=== PATIENT | male | born 1950 | race American Indian/Alaskan Native ===

== ENCOUNTER 2018-06-28 16:08 | Inpatient (IN) | payer MEDICARE ==
[2018-06-28] MEDS ORDERED: NACL 0.9% 1000 ML 1,000 ML IV ONE ×2 (17:14→20:25)
--- NOTE | 2018-06-28 17:19 | Emergency Department Report ---
ED General Adult HPI - General Chief complaint: Recheck/Abnormal Lab/Rx Stated complaint: ACUTE KIDNEY INFECTION Time Seen by Provider: 06/28/18 17:05 Source: patient, EMS Mode of arrival: Stretcher Limitations: Physical Limitation - History of Present Illness Initial comments: Mrs. Rosenberg is 67 years old male with history of hypertension, myasthenia gr ania, paraplegic, end-stage renal disease, decubitus ulcer, left femoral osteomyelitis. Patient was admitted to [facility] due to multiple issues including UTI/cath related, large back wound, left hip pyogenic arthritis, gram- positive bacteremia. Patient was treated with vancomycin and Zosyn and discharged to [facility] for rehabilitation. Patient brought to our emergency room today after the staff received a call from [facility] stating that patient culture came back with resistant to vancomycin and they send the patient for further management and evaluation. Patient currently denying any fever, chills, nausea or vomiting. Severity scale (0 -10): 0 - Related Data Allergies Allergy/AdvReac Type Severity Reaction Status Date / Time codeine Allergy Unknown Verified 06/28/18 17:04 ED Review of Systems ROS: Stated complaint: ACUTE KIDNEY INFECTION Other details as noted in HPI Comment: All other systems reviewed and negative Constitutional: denies: chills, fever Respiratory: denies: cough, orthopnea, shortness of breath, SOB with exertion, SOB at rest, wheezing Gastrointestinal: denies: abdominal pain, nausea, vomiting, diarrhea, constipation, hematemesis, melena, hematochezia Neurological: denies: headache ED Past Medical Hx - Past Medical History Previous Medical History?: Yes Additional medical history: metabolic encephalopathy, pyogenic arthritis, osteomylitis, akf, mrsa, bacteremia, htn, myastgebua gravis - Social History Smoking Status: Never Smoker Substance Use Type: None ED Physical Exam - General Limitations: Physical Limitation General appearance: alert, in no apparent distress - Head Head exam: Present: atraumatic, normocephalic, normal inspection - Eye Eye exam: Present: normal appearance - ENT ENT exam: Present: normal exam, normal orophraynx, mucous membranes moist - Neck Neck exam: Present: normal inspection, full ROM. Absent: tenderness, meningismus, lymphadenopathy, thyromegaly - Respiratory Respiratory exam: Present: normal lung sounds bilaterally - Cardiovascular Cardiovascular Exam: Present: regular rate, normal rhythm, normal heart sounds - GI/Abdominal GI/Abdominal exam: Present: soft, normal bowel sounds. Absent: distended, tenderness, guarding, rebound, rigid, mass, bruit, pulsatile mass - Extremities Exam Extremities exam: Present: normal inspection, full ROM, normal capillary refill - Neurological Exam Neurological exam: Present: alert, oriented X3 - Skin Skin exam: Present: other (left buttocks decubitus ulcer.) ED Course Vital Signs 06/28/18 06/28/18 06/28/18 16:45 16:49 17:00 Temperature 98.4 F Pulse Rate 77 77 73 Respiratory 19 16 19 Rate Blood Pressure 148/84 Blood Pressure 126/74 [Left] O2 Sat by Pulse 98 98 Oximetry 06/28/18 06/28/18 06/28/18 17:15 17:31 17:45 Temperature Pulse Rate 77 74 72 Respiratory 13 16 16 Rate Blood Pressure 126/74 126/74 148/84 Blood Pressure [Left] O2 Sat by Pulse 99 100 Oximetry 06/28/18 06/28/18 06/28/18 18:00 18:15 18:30 Temperature Pulse Rate 73 69 75 Respiratory 23 14 17 Rate Blood Pressure 137/80 137/80 137/80 Blood Pressure [Left] O2 Sat by Pulse 91 Oximetry 06/28/18 06/28/18 06/28/18 18:46 18:53 18:54 Temperature 92 F L Pulse Rate 72 68 Respiratory 16 14 14 Rate Blood Pressure 137/80 Blood Pressure 137/80 [Left] O2 Sat by Pulse 100 100 100 Oximetry 06/28/18 06/28/18 06/28/18 19:00 19:16 19:30 Temperature Pulse Rate 69 68 70 Respiratory 17 17 17 Rate Blood Pressure 137/80 137/80 137/80 Blood Pressure [Left] O2 Sat by Pulse 99 100 100 Oximetry - Consultations Consultation #1: 06/28/18 19:41 I discussed the patient is Dr. Gregory, from infectious disease, Dr. Gregory advised to start patient on Linezolid and will follow up with the patient in the hospital in the morning. 06/28/18 19:41 Consultation #2: 06/28/18 20:39 I discussed the patient is Dr. Garcia, he informed about the patient and he stated that he will follow-up. ED Medical Decision Making - Lab Data Result diagrams: 06/28/18 18:25 06/28/18 18:25 - Medical Decision Making Mrs. Rosenberg is 67 years old male with history of hypertension, myasthenia gravis, paraplegic, end-stage renal disease, decubitus ulcer, left femoral osteomyelitis. Patient was admitted to [facility] due to multiple issues including UTI/cath related, large back wound, left hip pyogenic arthritis, gram- positive bacteremia. Patient was treated with vancomycin and Zosyn and discharged to [facility] for rehabilitation. Patient brought to our emergency room today after the staff received a call from [facility] sta ting that patient culture came back with resistant to vancomycin and they send the patient for further management and evaluation. Patient currently denying any fever, chills, nausea or vomiting. I discussed the patient was Dr. Gregory from infectious disease who advised to start patient on Linezolid and to continue Zosyn. Patient also found to have acute renal failure. Patient present creatinine is 13.3 his previous creatinine on June 06 was 1.8 I discussed the patient is Dr. Harrison, he agreed to admit the patient to medical service advised to do the initial admitting orders. Critical Care Time: Yes Critical care time in (mins) excluding proc time.: 45 Critical care attestation.: If time is entered above; I have spent that time in minutes in the direct care of this critically ill patient, excluding procedure time. ED Disposition Clinical Impression: Sepsis, Vancomycin resistant Enterococcal septicemia, Acute renal failure, Decubitus ulcer, Osteomyelitis of left femur Disposition: OP ADMIT IP TO THIS HOSP Is pt being admited?: Yes Condition: Stable Referrals: TIFFANIE JIMENEZ MD [Primary Care Provider] - 3-5 Days
[2018-06-28 18:42] LABS: Hematocrit 26.6 % (35.5-45.6); Hemoglobin 9.1 gm/dl (11.8-15.2); Mean Corpuscular HGB Conc 34 % (32-34); Mean Corpuscular Volume 88 fl (84-94); Platelet Count 320 K/mm3 (140-440); Red Blood Count 3.01 M/mm3 (3.65-5.03)
[2018-06-28 18:43] LABS: Red Cell Distribution Width 20.5 % (13.2-15.2)
[2018-06-28 19:00] LABS: Albumin 1.9 g/dL (3.9-5)
[2018-06-28 19:20] LABS: Basophils % (Manual) 0 % (0.0-1.8); Myelocytes # (Manual) 0.3 K/mm3; Total Cells Counted 100
[2018-06-28 19:21] LABS: Anisocytosis 2+
[2018-06-28] MEDS: ZYVOX 600MG/300ML 600 MG/300 ML BAG IV SCH (20:16)
[2018-06-28] MEDS ORDERED: ZOSYN/NS 2.25 GM/50ML 2.25 GM/50 ML BAG IV ONE (20:40)
--- NOTE | 2018-06-28 21:08 | XRay Report ---
FINAL REPORT EXAM: XR CHEST 1V AP HISTORY: sepsis TECHNIQUE: Frontal portable view of the chest Comparison: None FINDINGS: A right-sided PICC line is demonstrated with the tip projected in the region of the superior vena cav a. There prominence of the interstitial markings in both lungs with the appearance of patchy areas of pu lmonary consolidation in both lungs. Atelectasis versus infiltrates versus combination of both. There is no evidence of pneumothorax and no definite evidence of pleural effusion. The cardiac silhouette is normal size. The thoracic aorta is tortuous. The bony structures are notable for retained hardware in the visualized portion of the cervical spine . Visualization detail of the thoracic spine is limited. There appears to be multiple level bridging osteophyte formation. IMPRESSION: 1. Patchy areas of pulmonary consolidation in both lungs. Atelectasis versus infiltrates versus combi nation of both. If further imaging is required, CT chest may be helpful. 2. Right-sided PICC line catheter. 3. Retained hardware cervical spine.
[2018-06-29] MEDS ORDERED: ZOFRAN IV PRN (00:02)
--- NOTE | 2018-06-29 00:17 | Ultrasound Report ---
FINAL REPORT EXAM: US RENAL BILAT HISTORY: Acute renal failure COMPARISON: None available. TECHNIQUE: Several real-time grayscale and color Doppler images were obtained. FINDINGS: Right kidney measures 9.8 x 4.9 x 4.4 centimeters. Cortex 1.7 centimeters. Left kidney measures 11.7 x 5.5 x 5.0 centimeters. Cortex 1.5 centimeters. No gross focal renal lesion or hydronephrosis. There is vascular flow to the bilateral kidneys. IMPRESSION: No gross focal renal lesion or hydronephrosis.
[2018-06-29] MEDS: SODIUM BICARBONATE IV SCH ×2 (00:30→16:03)
[2018-06-29] MEDS: STERILE WATER IV SCH ×2 (00:30→16:03)
--- NOTE | 2018-06-29 04:15 | History and Physical Report ---
CHIEF COMPLAINT: Abnormal lab results. HISTORY OF PRESENT ILLNESS: The patient is a 67-year-old male sent from [facility] for rehabilitation because of lab results from the previous hospital he went to said that the patient has vancomycin-resistant urinary tract infection and the patient was sent to the Emergency Room for further evaluation. The patient was initially treated at [facility] for urinary tract infection, which is catheter related and also large back wound, left hip pyogenic arthritis and Gram-positive bacteremia. After discharge, he was sent to [facility] for rehabilitation and while there, the staff member received a call saying that the patient has urine culture that shows resistance to vancomycin and said that the patient should come in for evaluation. There was no history of fever or chills. No history of nausea or vomiting, shortness of breath, cough or chest pain. PAST MEDICAL HISTORY: Pertinent for metabolic encephalopathy, pyogenic arthritis, osteomyelitis, MRSA infection with bacteremia, hypertension, myasthenia gravis. PAST SURGICAL HISTORY: Unremarkable. FAMILY HISTORY: Noncontributory. SOCIAL HISTORY: The patient does not smoke, does not drink alcohol and does not use illicit drugs and currently in the rehab center. MEDICATIONS: The patient's home medications are not known at this time. ALLERGIES: THE PATIENT IS ALLERGIC TO CODEINE. REVIEW OF SYSTEMS: CONSTITUTIONAL: There is no fever, no chills, no diaphoresis. HEENT: There is no headache or sore throat. CARDIOVASCULAR: There is no chest pain or orthopnea. RESPIRATORY SYSTEM: There is no shortness of breath or cough. GASTROINTESTINAL SYSTEM: There is no nausea, no vomiting, no abdominal pain, diarrhea or constipation. NEUROLOGICAL SYSTEM: There is no numbness, no dizziness, no altered mental status. MUSCULOSKELETAL SYSTEM: There is no joint pain or swelling. DERMATOLOGICAL SYSTEM: There is no skin rash or itching, but there is ulceration of the skin. GENITOURINARY SYSTEM: There is dysuria, but no hematuria or flank pain. Rest of the system review is normal. PHYSICAL EXAMINATION: GENERAL: At the time of exam, the patient was found to be alert, oriented to person only and not in acute distress. VITAL SIGNS: At the initial time of presentation show temperature of 98.4 degrees Fahrenheit, pulse of 77, respirations of 19, blood pressure 126/74, O2 sat of 98% on room air. HEENT: Showed pupils to be equal, round, reactive to light and accommodating. Extraocular muscles are intact. NECK: Supple with no JVD or carotid bruit. CARDIOVASCULAR: Showed normal first and second heart sounds with no gallops or murmurs. RESPIRATORY: Showed good air entry on both sides of the lungs with no abnormal breath sounds. GASTROINTESTINAL SYSTEM: Show abdomen to be full, soft, nontender with no organomegaly or rigidity. NEUROLOGICAL: Shows no focal deficit. MUSCULOSKELETAL SYSTEM: Show no joint swelling or tenderness. DERMATOLOGICAL SYSTEM: Showed left buttock decubitus ulcer. GENITOURINARY: Show no costovertebral angle tenderness. PERTINENT LABORATORY DATA AND IMAGING STUDIES: The patient had a chest x-ray done. Chest x-ray shows patchy areas of pulmonary consolidation in both lung and the radiologist said that atelectasis versus infiltrate versus combination of both should be considered and further CT of chest may be helpful. The patient had renal ultrasound done that shows no gross focal renal lesion or hydronephrosis. Lab results: The patient has CBC done with elevated white count of 31,200 with low hemoglobin of 9.1 and low hematocrit of 26.6. The patient's chemistry show a high sodium level of 155 with low potassium of 3.2, high chloride level of 120 with low CO2 of 6, elevated BUN of 67 and elevated creatinine of 13.3 and alkaline phosphatase is high with a value of 200 and albumin level is low with a value of 1.9. DIAGNOSES: 1. Sepsis. 2. Urinary tract infection. 3. Acute renal failure. 4. Bilateral pneumonia. PLAN OF CARE: 1. The patient will be admitted to telemetry. 2. The patient will continue Infectious Disease consult with Dr. Calderon because of vancomycin-resistant UTI. 3. The patient will continue Nephrology consult with Dr. Garcia because of acute renal failure. 4. The patient will continue general surgical consult with Dr. Luly Nieves because of left decubitus ulcer. 5. The patient's DVT prophylaxis will be through sequential compressive device. 6. The patient will have basic metabolic panel checked this morning. 7. The patient will continue linezolid or Zyvox 600 mg IV q. 12 hours as requested by the Infectious Disease doctor. 8. The patient will be on IV Zofran 4 mg every 8 hours for nausea and vomiting and will also continue IV Zosyn 3.375 grams q. 8 hours. 9. The patient's diet will be 2 g sodium diet. JOB# [id number] OCN/NTS
[2018-06-29] MEDS ORDERED: ZOSYN/NS 3.375GM/50ML 3.375 GM/50 ML BAG IV SCH (06:00)
[2018-06-29 06:27] LABS: Hematocrit 23.4 % (35.5-45.6); Hemoglobin 8.1 gm/dl (11.8-15.2); Mean Corpuscular HGB Conc 35 % (32-34); Mean Corpuscular Volume 88 fl (84-94); Platelet Count 262 K/mm3 (140-440); Red Blood Count 2.66 M/mm3 (3.65-5.03)
[2018-06-29 06:30] LABS: Red Cell Distribution Width 20.7 % (13.2-15.2)
[2018-06-29 06:45] LABS: Calcium 9.4 mg/dL (8.4-10.2)
--- NOTE | 2018-06-29 07:08 | Consultation ---
History of Present Illness - Reason for Consult Consult date: 06/29/18 acute renal failure, chronic renal failure, hypernatremia, hypokalemia - History of Present Illness The patient is a 67 Yo male with history significant for Myasthenia gravis, DM type 2, Paraplegia 2/2 spinal injury and multiple decubitus ulcers who presented from [facility] for further evaluation of abnormal labs. Patient was not able to provide any history and information was obtained from his at the bedside. He recently had a prolonged stay at [facility], treated for MRSA bacteremia, loculated intramuscular abscess in the gluteal muscles, left hip septic arthritis s/p I&D, trochanteric osteomyelitis, multiple decubitus ulcers including a stage IV sacral ulcer and VRE UTI in the setting of a suprapubic catheter. He was discharged from the hospital on IV Zosyn and vancomycin. Labs done on arrival showed creatinine of 13.3., Sodium 155, bicarb 6 and WBC 31. He was admitted with LASHAE, multiple infected wounds and sepsis. Nephrology was consulted for further evaluation and treatment. Past History Past Medical History: diabetes, renal failure Medications and Allergies Allergies Allergy/AdvReac Type Severity Reaction Status Date / Time codeine Allergy Unknown Verified 06/28/18 17:04 Home Medications Medication Instructions Recorded Confirmed Last Taken Type Unobtainable 06/28/18 06/28/18 Unknown History Active Meds: Active Medications Heparin Sodium (Porcine) (Heparin) 5,000 unit SUB-Q Q12HR BEL Linezolid (Zyvox 600mg/300ml) 600 mg in 300 mls @ 300 mls/hr IV Q12H BEL; Protocol Last Admin: 06/28/18 20:16 Dose: 300 mls/hr Documented by: Sodium Bicarbonate 75 meq/ (Sterile Water) 1,075 mls @ 125 mls/hr IV DIRECT BEL Last Admin: 06/29/18 00:30 Dose: 125 mls/hr Documented by: Piperacillin Sod/Tazobactam Sod (Zosyn/Ns 3.375gm/50ml) 3.375 gm in 50 mls @ 100 mls/hr IV Q8HR BEL; Protocol Ondansetron HCl (Zofran) 4 mg IV Q8H PRN PRN Reason: Nausea And Vomiting Review of Systems ROS unobtainable: due to mental status Exam - Vital Signs Vital signs: Vital Signs Pulse Resp 77 19 06/28/18 16:45 06/28/18 16:45 - General Appearance General appearance: well-developed, appears stated age, frail, other (emaciated) EENT: ATNC, PERRL, mucous membranes dry, hearing intact Neck: Present: neck supple, trachea midline Respiratory: Clear to Ascultation Heart: regular, S1S2, no murmurs Gastrointestinal: Present: normoactive bowel sounds, other (Suprapubic catheter noted). Absent: tenderness, distended Integumentary: other (bilateral foot dressing) Neurologic: confused, disoriented, other (paraplegia, follows some command) Musculoskeletal: Present: other (no edema) Results - Lab Results 06/29/18 05:39 06/29/18 14:30 Most recent lab results Calcium 9.4 mg/dL (8.4-10.2) 06/29/18 05:39 - Image Kidney/bladder ultrasound: report reviewed Assessment and Plan 1. Acute kidney injury: Multifactorial LASHAE in the setting of volume depletion, sepsis and =/-Vancomycin. Likely ATN. Urine studies and Renal US results noted. Continue IV fluids. Monitor renal function. If there is no improvement in the renal function in 1-2 days patient would require hemodialysis. D/w his about the possibility of dialysis. Renal prognosis is guarded. Avoid nephrotoxic agents. Meds dosage based on GFR. 2. FEN: Volume depletion, continue IV fluids. Anion gap metabolic acidosis, likely secondary to LASHAE. Continue IV bicarbonate. Hypernatremia, hypotonic IV fluids. Hyperkalemia, replete K. 3. Sepsis. 4. Multiple decubitus ulcers. 5. Paraplegia. 6. Myasthenia gravis.
[2018-06-29 07:39] LABS: Basophils % (Manual) 0 % (0.0-1.8); Myelocytes # (Manual) 0.2 K/mm3; Total Cells Counted 100
[2018-06-29 07:41] LABS: Anisocytosis 1+; Ovalocytes Few; Poikilocytosis 1+
[2018-06-29 07:42] LABS: Burr Cells 1+; Platelet Estimate Consistent w Auto
[2018-06-29] MEDS: ZYVOX 600MG/300ML 600 MG/300 ML BAG IV SCH (08:02)
[2018-06-29] MEDS ORDERED: POTASSIUM CHLORIDE PO ONE ×2 (09:00→18:00)
[2018-06-29] MEDS ORDERED: K-DUR PO ONE (10:00)
[2018-06-29] MEDS: HEPARIN SUB-Q SCH ×2 (10:03→21:21)
--- NOTE | 2018-06-29 13:09 | Consultation ---
History of Present Illness Consult date: 06/29/18 Chief complaint: sacral wound - History of present illness History of present illness: 67yo M with hx of hypertension, paraplegia, multiple decubitus ulcers including large sacral wound, left hip infection presents to ER from rehab due to "positive cultures" which are resistant to vancomycin. Per family at bedside these were urine cultures. The patient was recently admitted to [facility] for multipleissues including UTI, wounds, and left hip abscess. He has a chronic suprapubic catheter. He underwent debridement of wounds and drainage of hip abscess per family member. Family member states that the patient has lost a lot of weight since she saw him 2 weeks ago. The patient c/o pain when eating and burning sensation in his mouth. He cannot elaborate further. He denies f/c, cp. He was having some SOB this am which is improved with supplemental O2. He is tolerating some of his diet without n/v. Past History Past Medical History: hypertension, other (myasthenia gravis, CKD, paraplegia, multiple decubitus wounds, left hip pyogenic arthritis) Past Surgical History: Other (sacral wound debridement, drainage of left hip abscess, suprapubic catheter) [facility] history: [facility] Family history: no significant family history Medications and Allergies Allergies Allergy/AdvReac Type Severity Reaction Status Date / Time codeine Allergy Unknown Verified 06/28/18 17:04 Home Medications Medication Instructions Recorded Confirmed Last Taken Type Unobtainable 06/28/18 06/28/18 Unknown History Active Meds: Active Medications Heparin Sodium (Porcine) (Heparin) 5,000 unit SUB-Q Q12HR BEL Last Admin: 06/29/18 10:03 Dose: 5,000 unit Documented by: Linezolid (Zyvox 600mg/300ml) 600 mg in 300 mls @ 300 mls/hr IV Q12H BEL; Protocol Last Admin: 06/29/18 08:02 Dose: 300 mls/hr Documented by: Sodium Bicarbonate 75 meq/ (Sterile Water) 1,075 mls @ 125 mls/hr IV DIRECT BEL Last Admin: 06/29/18 00:30 Dose: 125 mls/hr Documented by: Piperacillin Sod/Tazobactam Sod (Zosyn/Ns 2.25 Gm/50ml) 2.25 gm in 50 mls @ 100 mls/hr IV Q8HR [facility] Ondansetron HCl (Zofran) 4 mg IV Q8H PRN PRN Reason: Nausea And Vomiting Review of Systems All systems: negative (10 pt ROS performed and negative except for that listed in HPI) Exam Vital Signs Pulse Resp 77 19 06/28/18 16:45 06/28/18 16:45 Narrative exam: Gen: Awake and alert, oriented to person. NAD ENT: no scleral icterus or conjuntival pallor. Temporal wasting CV: s1, s2+ resp: even and unlabored Abd: soft, NT, ND Ext: thin loan documentation specialist photos reviewed: 1. large stage 3 sacral wound without evidence of necrosis or drainage. 2. Results - Labs 06/29/18 05:39 06/29/18 05:39 Abnormal lab results 06/28/18 06/28/18 06/29/18 Range/Units 18:25 18:25 05:39 WBC 31.2 H 21.4 H (4.5-11.0) K/mm3 RBC 3.01 L 2.66 L (3.65-5.03) M/mm3 Hgb 9.1 L 8.1 L (11.8-15.2) gm/dl Hct 26.6 L 23.4 L (35.5-45.6) % MCHC 35 H (32-34) % RDW 20.5 H 20.7 H (13.2-15.2) % Seg Neuts % (Manual) 72.0 H 79.0 H (40.0-70.0) % Lymphocytes % (Manual) 8.0 L (13.4-35.0) % Eosinophils % (Manual) 5.0 H (0.0-4.3) % Nucleated RBC % 2.0 H 2.0 H (0.0-0.9) % Seg Neutrophils # Man 22.5 H 16.9 H (1.8-7.7) K/mm3 Lymphocytes # (Manual) 7.2 H (1.2-5.4) K/mm3 Monocytes # (Manual) 0.9 H 1.5 H (0.0-0.8) K/mm3 Eosinophils # (Manual) 1.1 H (0.0-0.4) K/mm3 Sodium 155 H (137-145) mmol/L Potassium 3.2 L (3.6-5.0) mmol/L Chloride 120.3 H (98-107) mmol/L Carbon Dioxide 6 L* (22-30) mmol/L BUN 67 H (9-20) mg/dL Creatinine 13.3 H (0.8-1.5) mg/dL Glucose (75-100) mg/dL Alkaline Phosphatase 200 H (35-129) units/L Total Creatine Kinase (55-170) units/L Total Protein 6.1 L (6.3-8.2) g/dL Albumin 1.9 L (3.9-5) g/dL 06/29/18 Range/Units 05:39 WBC (4.5-11.0) K/mm3 RBC (3.65-5.03) M/mm3 Hgb (11.8-15.2) gm/dl Hct (35.5-45.6) % MCHC (32-34) % RDW (13.2-15.2) % Seg Neuts % (Manual) (40.0-70.0) % Lymphocytes % (Manual) (13.4-35.0) % Eosinophils % (Manual) (0.0-4.3) % Nucleated RBC % (0.0-0.9) % Seg Neutrophils # Man (1.8-7.7) K/mm3 Lymphocytes # (Manual) (1.2-5.4) K/mm3 Monocytes # (Manual) (0.0-0.8) K/mm3 Eosinophils # (Manual) (0.0-0.4) K/mm3 Sodium 153 H (137-145) mmol/L Potassium 2.7 L* (3.6-5.0) mmol/L Chloride 115.9 H (98-107) mmol/L Carbon Dioxide 7 L* (22-30) mmol/L BUN 64 H (9-20) mg/dL Creatinine 12.0 H (0.8-1.5) mg/dL Glucose 67 L (75-100) mg/dL Alkaline Phosphatase (35-129) units/L Total Creatine Kinase 47 L (55-170) units/L Total Protein (6.3-8.2) g/dL Albumin (3.9-5) g/dL Diabetes panel 06/28/18 06/29/18 Range/Units 18:25 05:39 Sodium 155 H 153 H (137-145) mmol/L Potassium 3.2 L 2.7 L* (3.6-5.0) mmol/L Chloride 120.3 H 115.9 H (98-107) mmol/L Carbon Dioxide 6 L* 7 L* (22-30) mmol/L BUN 67 H 64 H (9-20) mg/dL Creatinine 13.3 H 12.0 H (0.8-1.5) mg/dL Glucose 97 67 L (75-100) mg/dL Calcium 10.0 9.4 (8.4-10.2) mg/dL AST 28 (5-40) units/L ALT 10 (7-56) units/L Alkaline Phosphatase 200 H (35-129) units/L Total Protein 6.1 L (6.3-8.2) g/dL Albumin 1.9 L (3.9-5) g/dL Thyroid panel 06/29/18 Range/Units 00:45 TSH 0.937 (0.270-4.200) mlU/mL Calcium panel 06/28/18 06/29/18 Range/Units 18:25 05:39 Calcium 10.0 9.4 (8.4-10.2) mg/dL Albumin 1.9 L (3.9-5) g/dL Pituitary panel 06/28/18 06/29/18 06/29/18 Range/Units 18:25 00:45 05:39 Sodium 155 H 153 H (137-145) mmol/L Potassium 3.2 L 2.7 L* (3.6-5.0) mmol/L Chloride 120.3 H 115.9 H (98-107) mmol/L Carbon Dioxide 6 L* 7 L* (22-30) mmol/L BUN 67 H 64 H (9-20) mg/dL Creatinine 13.3 H 12.0 H (0.8-1.5) mg/dL Glucose 97 67 L (75-100) mg/dL Calcium 10.0 9.4 (8.4-10.2) mg/dL TSH 0.937 (0.270-4.200) mlU/mL Adrenal panel 06/28/18 06/29/18 Range/Units 18:25 05:39 Sodium 155 H 153 H (137-145) mmol/L Potassium 3.2 L 2.7 L* (3.6-5.0) mmol/L Chloride 120.3 H 115.9 H (98-107) mmol/L Carbon Dioxide 6 L* 7 L* (22-30) mmol/L BUN 67 H 64 H (9-20) mg/dL Creatinine 13.3 H 12.0 H (0.8-1.5) mg/dL Glucose 97 67 L (75-100) mg/dL Calcium 10.0 9.4 (8.4-10.2) mg/dL Total Bilirubin 0.40 (0.1-1.2) mg/dL AST 28 (5-40) units/L ALT 10 (7-56) units/L Alkaline Phosphatase 200 H (35-129) units/L Total Protein 6.1 L (6.3-8.2) g/dL Albumin 1.9 L (3.9-5) g/dL Assessment and Plan 67 yo M with 1. multiple decubitus ulcers - do not appear infected 2. vancomycin resistant UTI 3. paraplegia 4. CKD 5. malnutrition - albumin 1.9 Plan; 1. offloading of bony prominences - turn patient q2 2. nutrition consult. If patient is unable to eat and cannot support nutrition, may be a candidate for PEG eval. 3. speech therapy eval for pain with swallowing 4. wounds do not appear infected. will ask surfacing technician to place wound vac on back wound. continue daily wound care per RN 5. IV abx per ID 6. nephro on board 7. will await records from [facility] Thank you, please call with questions
[2018-06-29] MEDS ORDERED: ZOSYN/NS 2.25 GM/50ML 2.25 GM/50 ML BAG IV SCH (14:00)
--- NOTE | 2018-06-29 14:16 | Progress Note ---
History Interval history: Sent in for Vancomycin Resistant organism Altered mental status, confused as per Hospitalist Physical - Physical exam Narrative exam: GEN: Not in acute distress, lying in bed,malnourished HEENT: Normocephalic, atraumatic, Neck: supple, No JVD Lungs: Clear to auscultation bilaterally, no wheeze Heart:S1 and S2 regular, no murmurs, rubs or gallop, Abd:soft, non tender, non distended, normal bowel sounds Ext: bilateral lower ext ulcers, no clubbing or cyanosis Neuro: Awake,alert, mild confused. Oriented to person, time, not to place. sacrum:sacral ulcer - Constitutional Vitals: Temp Pulse Resp BP Pulse Ox 97.2 F L 66 16 115/71 100 06/28/18 21:56 06/29/18 08:07 06/29/18 04:42 06/29/18 08:14 06/29/18 04:42 Results - Labs CBC & Chem 7: 06/30/18 06:07 06/30/18 05:54 Labs: Laboratory Last Values WBC 21.4 K/mm3 (4.5-11.0) H 06/29/18 05:39 RBC 2.66 M/mm3 (3.65-5.03) L 06/29/18 05:39 Hgb 8.1 gm/dl (11.8-15.2) L 06/29/18 05:39 Hct 23.4 % (35.5-45.6) L 06/29/18 05:39 MCV 88 fl (84-94) 06/29/18 05:39 MCH 30 pg (28-32) 06/29/18 05:39 MCHC 35 % (32-34) H 06/29/18 05:39 RDW 20.7 % (13.2-15.2) H 06/29/18 05:39 Plt Count 262 K/mm3 (140-440) 06/29/18 05:39 Add Manual Diff Complete 06/29/18 05:39 Total Counted 100 06/29/18 05:39 Seg Neuts % (Manual) 79.0 % (40.0-70.0) H 06/29/18 05:39 Band Neutrophils % 0 % 06/29/18 05:39 Lymphocytes % (Manual) 8.0 % (13.4-35.0) L 06/29/18 05:39 Reactive Lymphs % (Man) 0 % 06/29/18 05:39 Monocytes % (Manual) 7.0 % (0.0-7.3) 06/29/18 05:39 Eosinophils % (Manual) 5.0 % (0.0-4.3) H 06/29/18 05:39 Basophils % (Manual) 0 % (0.0-1.8) 06/29/18 05:39 Metamyelocytes % 0 % 06/29/18 05:39 Myelocytes % 1.0 % 06/29/18 05:39 Promyelocytes % 0 % 06/29/18 05:39 Blast Cells % 0 % 06/29/18 05:39 Nucleated RBC % 2.0 % (0.0-0.9) H 06/29/18 05:39 Seg Neutrophils # Man 16.9 K/mm3 (1.8-7.7) H 06/29/18 05:39 Band Neutrophils # 0.0 K/mm3 06/29/18 05:39 Lymphocytes # (Manual) 1.7 K/mm3 (1.2-5.4) 06/29/18 05:39 Abs React Lymphs (Man) 0.0 K/mm3 06/29/18 05:39 Monocytes # (Manual) 1.5 K/mm3 (0.0-0.8) H 06/29/18 05:39 Eosinophils # (Manual) 1.1 K/mm3 (0.0-0.4) H 06/29/18 05:39 Basophils # (Manual) 0.0 K/mm3 (0.0-0.1) 06/29/18 05:39 Metamyelocytes # 0.0 K/mm3 06/29/18 05:39 Myelocytes # 0.2 K/mm3 06/29/18 05:39 Promyelocytes # 0.0 K/mm3 06/29/18 05:39 Blast Cells # 0.0 K/mm3 06/29/18 05:39 WBC Morphology Not Reportable 06/29/18 05:39 Hypersegmented Neuts Not Reportable 06/29/18 05:39 Hyposegmented Neuts Not Reportable 06/29/18 05:39 Hypogranular Neuts Not Reportable 06/29/18 05:39 Smudge Cells Not Reportable 06/29/18 05:39 Toxic Granulation Not Reportable 06/29/18 05:39 Toxic Vacuolation Not Reportable 06/29/18 05:39 Dohle Bodies Not Reportable 06/29/18 05:39 Pelger-Huet Anomaly Not Reportable 06/29/18 05:39 Gina Rods Not Reportable 06/29/18 05:39 Platelet Estimate Consistent w auto 06/29/18 05:39 Clumped Platelets Not Reportable 06/29/18 05:39 Plt Clumps, EDTA Not Reportable 06/29/18 05:39 Large Platelets Not Reportable 06/29/18 05:39 Giant Platelets Not Reportable 06/29/18 05:39 Platelet Satelliting Not Reportable 06/29/18 05:39 Plt Morphology Comment Not Reportable 06/29/18 05:39 RBC Morphology Not Reportable 06/29/18 05:39 Dimorphic RBCs Not Reportable 06/29/18 05:39 Polychromasia Rare 06/29/18 05:39 Hypochromasia Not Reportable 06/29/18 05:39 Poikilocytosis 1+ 06/29/18 05:39 Anisocytosis 1+ 06/29/18 05:39 Microcytosis Not Reportable 06/29/18 05:39 Macrocytosis Not Reportable 06/29/18 05:39 Spherocytes Not Reportable 06/29/18 05:39 Pappenheimer Bodies Not Reportable 06/29/18 05:39 Sickle Cells Not Reportable 06/29/18 05:39 Target Cells Not Reportable 06/29/18 05:39 Tear Drop Cells Not Reportable 06/29/18 05:39 Ovalocytes Few 06/29/18 05:39 Helmet Cells Not Reportable 06/29/18 05:39 Lange-Cayuco Bodies Not Reportable 06/29/18 05:39 [place] Rings Not Reportable 06/29/18 05:39 [place] Cells 1+ 06/29/18 05:39 Bite Cells Not Reportable 06/29/18 05:39 Crenated Cell Not Reportable 06/29/18 05:39 Elliptocytes Not Reportable 06/29/18 05:39 Acanthocytes (Spur) Not Reportable 06/29/18 05:39 Rouleaux Not Reportable 06/29/18 05:39 Hemoglobin C Crystals Not Reportable 06/29/18 05:39 Schistocytes Not Reportable 06/29/18 05:39 Malaria parasites Not Reportable 06/29/18 05:39 Nahum Bodies Not Reportable 06/29/18 05:39 Hem Pathologist Commnt No 06/29/18 05:39 Sodium 153 mmol/L (137-145) H 06/29/18 05:39 Potassium 2.7 mmol/L (3.6-5.0) L* 06/29/18 05:39 Chloride 115.9 mmol/L (98-107) H 06/29/18 05:39 Carbon Dioxide 7 mmol/L (22-30) L* 06/29/18 05:39 Anion Gap 33 mmol/L 06/29/18 05:39 BUN 64 mg/dL (9-20) H 06/29/18 05:39 Creatinine 12.0 mg/dL (0.8-1.5) H 06/29/18 05:39 Estimated GFR 5 ml/min 06/29/18 05:39 BUN/Creatinine Ratio 5 % 06/29/18 05:39 Glucose 67 mg/dL (75-100) L 06/29/18 05:39 Lactic Acid 1.60 mmol/L (0.7-2.0) 06/28/18 23:02 Calcium 9.4 mg/dL (8.4-10.2) 06/29/18 05:39 Total Bilirubin 0.40 mg/dL (0.1-1.2) 06/28/18 18:25 AST 28 units/L (5-40) 06/28/18 18:25 ALT 10 units/L (7-56) 06/28/18 18:25 Alkaline Phosphatase 200 units/L (35-129) H 06/28/18 18:25 Total Creatine Kinase 47 units/L (55-170) L 06/29/18 05:39 Total Protein 6.1 g/dL (6.3-8.2) L 06/28/18 18:25 Albumin 1.9 g/dL (3.9-5) L 06/28/18 18:25 Albumin/Globulin Ratio 0.5 % 06/28/18 18:25 TSH 0.937 mlU/mL (0.270-4.200) 06/29/18 00:45 Nutrition/Malnutrition Assess - Dietary Evaluation Nutrition/Malnutrition Findings: Nutrition Notes Start: 06/29/18 10 :59 Freq: Status: Active Protocol: Document 06/29/18 10:59 ER (Rec: 06/29/18 11:26 ER [id number]) Co-Sign 06/29/18 10:59 LP Nutrition Notes Need for Assessment generated from: Low BMI Initial or Follow up Assessment Current Diagnosis Hypertension Other Pertinent Diagnosis Metabolic enceph., arthritis, osteomyelitis, MRSA, myasthenia gravis Current Diet Low Sodium Labs/Tests Na: 153 K: 2.7 Cl: 115.9 CO2: 7 BUN: 64 Cr: 12 Albumin: 1.9 Pertinent Medications Reviewed Height 6 ft Weight 56.7 kg Usual Body Weight 77 kg [place] Body Weight (kg) 80.90 BMI 16.9 Weight change and time frame 45# in one year (26% weight- loss) Weight Status Emaciated Subjective/Other Information Pt. screened for Low BMI. Pt. stated UBW of 170# one year ago. Pt. stated that he has an "ok" appetite, but felt too tired to eat his breakfast. Pt . was unsure if he ate dinner last night. Pt. stated he was eating when he wanted to eat [employer]. Pt. has visible fat and muscle wasting in the orbital and temporal regions and forearms. Pt. chart states that he has a large back wound . Pt. agreeable to trying Ensure Enlive (no chocolate) BID and Pj BID. Pt. denied having N/V/D/C or swallowing/ chewing difficulties. Burn Absent Trauma Absent GI Symptoms None Food Allergy No Current % PO Poor (25-49%) Minimum of two criteria Yes Interpretation of Weight Loss (severe) > 20% in 1 year Body Fat Depletion Moderate depletion (severe) Muscle Mass Moderate Depletion (severe) Fluid Accumulation N/A #1 Nutrition Diagnosis Malnutrition Etiology diminished PO intake As Evidenced by Signs and Symptoms 26% weight-loss in one year, and moderate to severe fat and muscle wasting. Is patient on ventilator? No Is Patient Ambulatory and/or Out of Bed No REE-([place]-confined to bed) 1673.556 Kcal/Kg value to use for calculation 40 Approximate Energy Requirements Using 2268 kcal/Kg Calculation Used for Recommendations Kcal/kg Additional Notes PRO needs: 68-85g (1.2-1.5g/kg ) Fluid needs: 1 mL/kcal Nutrition Intervention Change Diet Order: Continue Low Sodium, Add Ensure Enlive and Pj BID Add Supplement/Snack (indicate name/kcal Ensure Enlive (strawberry or /protein ) vanilla) and Pj BID Provides kCal: 890 Provides Protein (gm) 45 Goal #1 Pt. to meet at least 80% of energy and protein needs through PO and ONS intakes. Goal #2 ONS tolerance Goal #3 Weight maintainance Anticipated Discharge Needs: Low Sodium diet Follow-Up By: 07/01/18 Additional Comments F/U: PO and ONS intake
--- NOTE | 2018-06-29 15:06 | Consultation ---
History of Present Illness - Reason for Consult Consult date: 06/29/18 Sacral decubitus ulcer, sepsis, VRE Requesting physician: TORIBIO FERNANDEZ - History of Present Illness The patient is a 67-year-old male with paraplegia, myasthenia gravis, diabetes mellitus type 2 recently had a prolonged hospitalization when he was admitted to [facility] on 05/14/2018 and was found to have MRSA bacteremia, loculated intramuscular abscess in the gluteal muscles, left hip septic arthritis with trochanteric osteomyelitis, multiple decubitus ulcers including a stage IV sacral decubitus ulcer. He had an I&D of his right hip on 06/01/2018. Probable course was also complicated by VRE UTI in the setting of a suprapubic catheter for which he received antibiotics that ended on 05/24/2018. He was eventually discharged from the hospital on IV Zosyn and vancomycin for a total duration of 6 weeks with the planned end date of 06/29/2018 through a PICC line (ID physician was Dr. Us). Patient was discharged to [facility] where he had continued wound care and IV vancomycin and Zosyn. It seems, routine labs on 06/28/2018 showed significantly elevated creatinine at 13.4 and an elevated vancomycin trough 48. He was subsequently sent here to [facility] and admitted. Here, his labs continued to show significantly elevated creatinine of 12.0 today, leukocytosis of 21,000. He has otherwise been afebrile with no hemodynamic instability. Extensive outside records reviewed. Apparently his echo to rule out infective endocarditis was negative. His creatinine in late May 2018 ranged between 1.8-2.0. Review of Systems: General: no fevers,chills or rigors HEENT: no new visual disturbance Respiratory: No cough, sputum, hemoptysis or shortness of breath Cardiovascular: No chest pain, syncope Gastrointestinal: No nausea, vomiting. Reports abdominal pain and diarrhea Genitourinary: No dysuria or hematuria Musculoskeletal: No new or worsening neck pain or back pain Neurologic: No headaches, seizures Hematologic: No easy bruising or bleeding Endocrine: No night sweats or acute weight loss Skin: negative for rash, jaundice Psychiatric: No suicidal or homicidal ideation Past History Past Medical History: hypertension, other (myasthenia gravis, CKD, paraplegia, multiple decubitus wounds, left hip pyogenic arthritis) Past Surgical History: Other (sacral wound debridement, drainage of left hip abscess, suprapubic catheter) Social history: other (currently at [employer] [facility]) Family history: no significant family history Medications and Allergies Allergies Allergy/AdvReac Type Severity Reaction Status Date / Time codeine Allergy Unknown Verified 06/28/18 17:04 Home Medications Medication Instructions Recorded Confirmed Last Taken Type Unobtainable 06/28/18 06/28/18 Unknown History Active Meds: Active Medications Heparin Sodium (Porcine) (Heparin) 5,000 unit SUB-Q Q12HR EBL Last Admin: 06/29/18 10:03 Dose: 5,000 unit Documented by: Linezolid (Zyvox 600mg/300ml) 600 mg in 300 mls @ 300 mls/hr IV Q12H BEL; Protocol Last Admin: 06/29/18 08:02 Dose: 300 mls/hr Documented by: Sodium Bicarbonate 75 meq/ (Sterile Water) 1,075 mls @ 125 mls/hr IV DIRECT BEL Last Admin: 06/29/18 00:30 Dose: 125 mls/hr Documented by: Piperacillin Sod/Tazobactam Sod (Zosyn/Ns 2.25 Gm/50ml) 2.25 gm in 50 mls @ 100 mls/hr IV Q8HR BEL Last Admin: 06/29/18 13:12 Dose: 100 mls/hr Documented by: Ondansetron HCl (Zofran) 4 mg IV Q8H PRN PRN Reason: Nausea And Vomiting Physical Examination - Physical Exam Narrative exam: Physical Exam: Constitutional: Alert, cooperative. No acute distress. Cachexia Head, Ears, Nose: Normocephalic, atraumatic. External ears, nose normal Eyes: Conjunctivae/corneas clear. No icterus. No ptosis. Neck: Supple, no meningeal signs Oral: no ulcers, no thrush Cardiovascular: S1, S2 normal. Respiratory: Good air entry, clear to auscultation bilaterally GI: mild diffuse tenderness, bowel sounds normal. No peritoneal signs. SPC +, right sided PICC + c/d/i Musculoskeletal: No pedal edema, no cyanosis. Multiple decubiti, sacral ulcer largest with clean pinkish base. Muscle wasting + Skin: No rash or abscess Hem/Lymphatic: No palpable cervical or supraclavicular nodes. No lymphangitis Psych: flat affect, no agitation Neurological: Awake, alert, oriented to place only. - Constitutional Vitals: Vital Signs Temp Pulse Resp BP Pulse Ox 97.2 F L 66 16 115/71 100 06/28/18 21:56 06/29/18 08:07 06/29/18 04:42 06/29/18 08:14 06/29/18 04:42 Temperature -Last 24 Hours Temperature 97.2 F Temperature 92 F Temperature 98.4 F Results - Labs CBC & Chem 7: 06/29/18 05:39 06/29/18 14:30 Labs: Abnormal lab results 06/28/18 06/28/18 06/29/18 Range/Units 18:25 18:25 05:39 WBC 31.2 H 21.4 H (4.5-11.0) K/mm3 RBC 3.01 L 2.66 L (3.65-5.03) M/mm3 Hgb 9.1 L 8.1 L (11.8-15.2) gm/dl Hct 26.6 L 23.4 L (35.5-45.6) % MCHC 35 H (32-34) % RDW 20.5 H 20.7 H (13.2-15.2) % Seg Neuts % (Manual) 72.0 H 79.0 H (40.0-70.0) % Lymphocytes % (Manual) 8.0 L (13.4-35.0) % Eosinophils % (Manual) 5.0 H (0.0-4.3) % Nucleated RBC % 2.0 H 2.0 H (0.0-0.9) % Seg Neutrophils # Man 22.5 H 16.9 H (1.8-7.7) K/mm3 Lymphocytes # (Manual) 7.2 H (1.2-5.4) K/mm3 Monocytes # (Manual) 0.9 H 1.5 H (0.0-0.8) K/mm3 Eosinophils # (Manual) 1.1 H (0.0-0.4) K/mm3 Sodium 155 H (137-145) mmol/L Potassium 3.2 L (3.6-5.0) mmol/L Chloride 120.3 H (98-107) mmol/L Carbon Dioxide 6 L* (22-30) mmol/L BUN 67 H (9-20) mg/dL Creatinine 13.3 H (0.8-1.5) mg/dL Glucose (75-100) mg/dL Alkaline Phosphatase 200 H (35-129) units/L Total Creatine Kinase (55-170) units/L Total Protein 6.1 L (6.3-8.2) g/dL Albumin 1.9 L (3.9-5) g/dL 06/29/18 Range/Units 05:39 WBC (4.5-11.0) K/mm3 RBC (3.65-5.03) M/mm3 Hgb (11.8-15.2) gm/dl Hct (35.5-45.6) % MCHC (32-34) % RDW (13.2-15.2) % Seg Neuts % (Manual) (40.0-70.0) % Lymphocytes % (Manual) (13.4-35.0) % Eosinophils % (Manual) (0.0-4.3) % Nucleated RBC % (0.0-0.9) % Seg Neutrophils # Man (1.8-7.7) K/mm3 Lymphocytes # (Manual) (1.2-5.4) K/mm3 Monocytes # (Manual) (0.0-0.8) K/mm3 Eosinophils # (Manual) (0.0-0.4) K/mm3 Sodium 153 H (137-145) mmol/L Potassium 2.7 L* (3.6-5.0) mmol/L Chloride 115.9 H (98-107) mmol/L Carbon Dioxide 7 L* (22-30) mmol/L BUN 64 H (9-20) mg/dL Creatinine 12.0 H (0.8-1.5) mg/dL Glucose 67 L (75-100) mg/dL Alkaline Phosphatase (35-129) units/L Total Creatine Kinase 47 L (55-170) units/L Total Protein (6.3-8.2) g/dL Albumin (3.9-5) g/dL - Imaging and Cardiology Chest x-ray: report reviewed, image reviewed (shows a right-sided PICC line and some atelectasis. ) Assessment and Plan Cultures: 06/28/2018 blood cultures: In progress A/P: 67-year-old male with paraplegia, myasthenia gravis, diabetes mellitus type 2 recently had a prolonged hospitalization when he was admitted to [facility] on 05/14/2018 and was found to have MRSA bacteremia, loculated intramuscular abscess in the gluteal muscles, left hip septic arthritis with trochanteric osteomyelitis, multiple decubitus ulcers including a stage IV sacra l decubitus ulcer. He had an I&D of his right hip on 06/01/2018. Probable course was also complicated by VRE UTI in the setting of a suprapubic catheter for which he received antibiotics that ended on 05/24/2018. He was eventually discharged from the hospital on IV Zosyn and vancomycin for a total duration of 6 weeks with the planned end date of 06/29/2018 through a PICC line (ID physician was Dr. Us). Patient was discharged to [facility], now admitted here with: 1) SIRS versus sepsis, leukocytosis: Could be related to the acute renal failure versus possibility of C. difficile given diarrhea. No evidence of pneumonia. He has a chronic indwelling suprapubic catheter. Follow-up blood cultures. 2) Diarrhea: Leukocytosis of 31,000 on admission, recent prolonged broad- spectrum antibiotic issues does increase risk of C. difficile. We will discont inue Zosyn and vancomycin, ordered stat C. difficile and started empirically PO vancomycin. 3) Acute renal failure: Based on review of his outside records, creatinine was around 1.8-2 in the end of May 2018 and now significantly worse at 13.3. Likely combination of supratherapeutic vancomycin related toxicity, Zosyn- Vancomycin combination and perhaps some volume loss from diarrhea. Nephrology following. Renal ultrasound negative for any obstructive uropathy. ?AIN, patient does have some peripheral eosinophilia. On bicarb drip. 4) Recent MRSA bacteremia with gluteal abscess, left hip osteomyelitis status post debridement and multiple decubitus ulcers: He was on IV Zosyn and vancomycin for the last 6 weeks with a planned end date of 06/29/2018 which is today. His wounds appear to be healthy with good granulation tissue and no evidence of superinfection at this time. Would not recommend continuing antibiotics. Per outside records, echocardiogram was negative for endocarditis, source was thought to be the left hip and decubiti. 5) Multiple decubitus ulcers: Continue wound care 5) Question of VRE UTI: Patient with indwelling suprapubic catheter. UA is pending at this time. Recs: - C.diff ordered STAT - d/kyle Zosyn - no need for further linezolid, order d/kyle - started empiric PO Vancomycin pending C.diff results - follow up blood cultures, UA, urine culture - continue wound care Plan d/w Dr. Fernandez. MD [facility] C: [phone] O: [phone] F: [phone]
[2018-06-29 15:08] LABS: Calcium 9.4 mg/dL (8.4-10.2)
[2018-06-29 16:32] LABS: Creatinine,Urine 32.9 mg/dL (0.1-20.0)
[2018-06-29 16:38] LABS: Bacteria,Urine 4+ /HPF (Negative); Bilirubin,Urine NEG (Negative); Blood,Urine MOD (Negative); Color,Urine Yellow (Yellow); Mucus,Urine FEW /HPF; Urobilinogen,Urine < 2.0 mg/dL (<2.0)
[2018-06-29 16:40] LABS: WBC,Urine > 182.0 /HPF (0.0-6.0)
[2018-06-29] MEDS: VANCOMYCIN PO PO SCH (21:20)
[2018-06-30] MEDS: STERILE WATER IV SCH ×2 (01:42→10:17)
[2018-06-30] MEDS: SODIUM BICARBONATE IV SCH ×2 (01:42→10:17)
[2018-06-30] MEDS: VANCOMYCIN PO PO SCH ×4 (05:35→17:29)
[2018-06-30 06:29] LABS: Hematocrit 23.4 % (35.5-45.6); Hemoglobin 8.1 gm/dl (11.8-15.2); Mean Corpuscular HGB Conc 35 % (32-34); Mean Corpuscular Volume 86 fl (84-94); Platelet Count 229 K/mm3 (140-440); Red Blood Count 2.71 M/mm3 (3.65-5.03)
[2018-06-30 06:30] LABS: Red Cell Distribution Width 21.4 % (13.2-15.2)
[2018-06-30 06:54] LABS: Calcium 9.2 mg/dL (8.4-10.2)
--- NOTE | 2018-06-30 08:23 | Progress Note ---
Assessment and Plan Assessment and plan: Sepsis vsd SIRS Started on Vanco ID Physician following history of MRSA infection Osteomyelitis left hip Completed treatment sacral decub ulcer UTI Vancomycin LASHAE. Nephrology following,. will need hemodialysis metabolic acidosis. Cont bicarb drip Toxic metabolic encephalopathy Hypokalemia. Replace and recheck hypernatremia Malnutrition. Dietitian consulted Full code status History Interval history: Patient sent in for altered mental status Hospitalist Physical - Physical exam Narrative exam: GEN: Not in acute distress, lying in bed,malnourished HEENT: Normocephalic, atraumatic, Neck: supple, No JVD Lungs: Clear to auscultation bilaterally, no wheeze Heart:S1 and S2 regular, no murmurs, rubs or gallop, Abd:soft, non tender, non distended, normal bowel sounds Ext: bilateral lower ext ulcers, no clubbing or cyanosis Neuro: Awake,alert, mild confused. Oriented to person, time, not to place. sacrum:sacral ulcer - Constitutional Vitals: Temp Pulse Resp BP Pulse Ox 98.3 F 60 18 172/90 100 06/30/18 04:52 06/30/18 04:52 06/30/18 04:52 06/30/18 04:52 06/30/18 04:52 Results - Labs CBC & Chem 7: 06/30/18 06:07 06/30/18 05:54 Labs: Laboratory Last Values WBC 20.7 K/mm3 (4.5-11.0) H 06/30/18 06:07 RBC 2.71 M/mm3 (3.65-5.03) L 06/30/18 06:07 Hgb 8.1 gm/dl (11.8-15.2) L 06/30/18 06:07 Hct 23.4 % (35.5-45.6) L 06/30/18 06:07 MCV 86 fl (84-94) 06/30/18 06:07 MCH 30 pg (28-32) 06/30/18 06:07 MCHC 35 % (32-34) H 06/30/18 06:07 RDW 21.4 % (13.2-15.2) H 06/30/18 06:07 Plt Count 229 K/mm3 (140-440) 06/30/18 06:07 Add Manual Diff Complete 06/29/18 05:39 Total Counted 100 06/29/18 05:39 Seg Neuts % (Manual) 79.0 % (40.0-70.0) H 06/29/18 05:39 Band Neutrophils % 0 % 06/29/18 05:39 Lymphocytes % (Manual) 8.0 % (13.4-35.0) L 06/29/18 05:39 Reactive Lymphs % (Man) 0 % 06/29/18 05:39 Monocytes % (Manual) 7.0 % (0.0-7.3) 06/29/18 05:39 Eosinophils % (Manual) 5.0 % (0.0-4.3) H 06/29/18 05:39 Basophils % (Manual) 0 % (0.0-1.8) 06/29/18 05:39 Metamyelocytes % 0 % 06/29/18 05:39 Myelocytes % 1.0 % 06/29/18 05:39 Promyelocytes % 0 % 06/29/18 05:39 Blast Cells % 0 % 06/29/18 05:39 Nucleated RBC % 2.0 % (0.0-0.9) H 06/29/18 05:39 Seg Neutrophils # Man 16.9 K/mm3 (1.8-7.7) H 06/29/18 05:39 Band Neutrophils # 0.0 K/mm3 06/29/18 05:39 Lymphocytes # (Manual) 1.7 K/mm3 (1.2-5.4) 06/29/18 05:39 Abs React Lymphs (Man) 0.0 K/mm3 06/29/18 05:39 Monocytes # (Manual) 1.5 K/mm3 (0.0-0.8) H 06/29/18 05:39 Eosinophils # (Manual) 1.1 K/mm3 (0.0-0.4) H 06/29/18 05:39 Basophils # (Manual) 0.0 K/mm3 (0.0-0.1) 06/29/18 05:39 Metamyelocytes # 0.0 K/mm3 06/29/18 05:39 Myelocytes # 0.2 K/mm3 06/29/18 05:39 Promyelocytes # 0.0 K/mm3 06/29/18 05:39 Blast Cells # 0.0 K/mm3 06/29/18 05:39 WBC Morphology Not Reportable 06/29/18 05:39 Hypersegmented Neuts Not Reportable 06/29/18 05:39 Hyposegmented Neuts Not Reportable 06/29/18 05:39 Hypogranular Neuts Not Reportable 06/29/18 05:39 Smudge Cells Not Reportable 06/29/18 05:39 Toxic Granulation Not Reportable 06/29/18 05:39 Toxic Vacuolation Not Reportable 06/29/18 05:39 Dohle Bodies Not Reportable 06/29/18 05:39 Pelger-Huet Anomaly Not Reportable 06/29/18 05:39 Gina Rods Not Reportable 06/29/18 05:39 Platelet Estimate Consistent w auto 06/29/18 05:39 Clumped Platelets Not Reportable 06/29/18 05:39 Plt Clumps, EDTA Not Reportable 06/29/18 05:39 Large Platelets Not Reportable 06/29/18 05:39 Giant Platelets Not Reportable 06/29/18 05:39 Platelet Satelliting Not Reportable 06/29/18 05:39 Plt Morphology Comment Not Reportable 06/29/18 05:39 RBC Morphology Not Reportable 06/29/18 05:39 Dimorphic RBCs Not Reportable 06/29/18 05:39 Polychromasia Rare 06/29/18 05:39 Hypochromasia Not Reportable 06/29/18 05:39 Poikilocytosis 1+ 06/29/18 05:39 Anisocytosis 1+ 06/29/18 05:39 Microcytosis Not Reportable 06/29/18 05:39 Macrocytosis Not Reportable 06/29/18 05:39 Spherocytes Not Reportable 06/29/18 05:39 Pappenheimer Bodies Not Reportable 06/29/18 05:39 Sickle Cells Not Reportable 06/29/18 05:39 Target Cells Not Reportable 06/29/18 05:39 Tear Drop Cells Not Reportable 06/29/18 05:39 Ovalocytes Few 06/29/18 05:39 Helmet Cells Not Reportable 06/29/18 05:39 Lange-Notus Bodies Not Reportable 06/29/18 05:39 Whittaker Rings Not Reportable 06/29/18 05:39 Hosford Cells 1+ 06/29/18 05:39 Bite Cells Not Reportable 06/29/18 05:39 Crenated Cell Not Reportable 06/29/18 05:39 Elliptocytes Not Reportable 06/29/18 05:39 Acanthocytes (Spur) Not Reportable 06/29/18 05:39 Rouleaux Not Reportable 06/29/18 05:39 Hemoglobin C Crystals Not Reportable 06/29/18 05:39 Schistocytes Not Reportable 06/29/18 05:39 Malaria parasites Not Reportable 06/29/18 05:39 Nahum Bodies Not Reportable 06/29/18 05:39 Hem Pathologist Commnt No 06/29/18 05:39 Sodium 148 mmol/L (137-145) H 06/30/18 05:54 Potassium 3.5 mmol/L (3.6-5.0) L 06/30/18 05:54 Chloride 113.7 mmol/L (98-107) H 06/30/18 05:54 Carbon Dioxide 10 mmol/L (22-30) L 06/30/18 05:54 Anion Gap 28 mmol/L 06/30/18 05:54 BUN 63 mg/dL (9-20) H 06/30/18 05:54 Creatinine 11.6 mg/dL (0.8-1.5) H 06/30/18 05:54 Estimated GFR 5 ml/min 06/30/18 05:54 BUN/Creatinine Ratio 5 % 06/30/18 05:54 Glucose 61 mg/dL (75-100) L 06/30/18 05:54 Lactic Acid 1.60 mmol/L (0.7-2.0) 06/28/18 23:02 Calcium 9.2 mg/dL (8.4-10.2) 06/30/18 05:54 Total Bilirubin 0.40 mg/dL (0.1-1.2) 06/28/18 18:25 AST 28 units/L (5-40) 06/28/18 18:25 ALT 10 units/L (7-56) 06/28/18 18:25 Alkaline Phosphatase 200 units/L (35-129) H 06/28/18 18:25 Total Creatine Kinase 47 units/L (55-170) L 06/29/18 05:39 Total Protein 6.1 g/dL (6.3-8.2) L 06/28/18 18:25 Albumin 1.9 g/dL (3.9-5) L 06/28/18 18:25 Albumin/Globulin Ratio 0.5 % 06/28/18 18:25 TSH 0.937 mlU/mL (0.270-4.200) 06/29/18 00:45 Urine Color Yellow (Yellow) 06/29/18 16:05 Urine Turbidity Turbid (Clear) 06/29/18 16:05 Urine pH 5.0 (5.0-7.0) 06/29/18 16:05 Ur Specific [place] 1.009 (1.003-1.030) 06/29/18 16:05 Urine Protein 100 mg/dl mg/dL (Negative) 06/29/18 16:05 Urine Glucose (UA) Neg mg/dL (Negative) 06/29/18 16:05 Urine Ketones Neg mg/dL (Negative) 06/29/18 16:05 Urine Blood Mod (Negative) 06/29/18 16:05 Urine Nitrite Neg (Negative) 06/29/18 16:05 Urine Bilirubin Neg (Negative) 06/29/18 16:05 Urine Urobilinogen < 2.0 mg/dL (<2.0) 06/29/18 16:05 Ur Leukocyte Esterase Lg (Negative) 06/29/18 16:05 Urine WBC (Auto) > 182.0 /HPF (0.0-6.0) H 06/29/18 16:05 Urine RBC (Auto) 88.0 /HPF (0.0-6.0) 06/29/18 16:05 U Epithel Cells (Auto) 10.0 /HPF (0-13.0) 06/29/18 16:05 Urine Bacteria (Auto) 4+ /HPF (Negative) 06/29/18 16:05 Urine WBC Clumps 3+ /HPF 06/29/18 16:05 Ur Transition Epith Cell 1 /HPF 06/29/18 16:05 Urine Mucus Few /HPF 06/29/18 16:05 Urine Yeast (Budding) 3+ /HPF 06/29/18 16:05 Urine Eosinophils 1.0% (None Seen) 06/29/18 15:55 Urine Creatinine 32.9 mg/dL (0.1-20.0) H 06/29/18 16:05 Urine Sodium 99 mmol/L 06/29/18 16:05 Nutrition/Malnutrition Assess - Dietary Evaluation Nutrition/Malnutrition Findings: Nutrition Notes Start: 06/29/18 10:59 Freq: Status: Active Protocol: Document 06/29/18 10:59 ER (Rec: 06/29/18 11:26 ER [id number]) Co-Sign 06/29/18 10:59 LP Nutrition Notes Need for Assessment generated from: Low BMI Initial or Follow up Assessment Current Diagnosis Hypertension Other Pertinent Diagnosis Metabolic enceph., arthritis, osteomyelitis, MRSA, myasthenia gravis Current Diet Low Sodium Labs/Tests Na: 153 K: 2.7 Cl: 115.9 CO2: 7 BUN: 64 Cr: 12 Albumin: 1.9 Pertinent Medications Reviewed Height 6 ft Weight 56.7 kg Usual Body Weight 77 kg [place] Body Weight (kg) 80.90 BMI 16.9 Weight change and time frame 45# in one year (26% weight- loss) Weight Status Emaciated Subjective/Other Information Pt. screened for Low BMI. Pt. stated UBW of 170# one year ago. Pt. stated that he has an "ok" appetite, but felt too tired to eat his breakfast. Pt . was unsure if he ate dinner last night. 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 Pt. has visible fat and muscle wasting in the orbital and temporal regions and forearms. Pt. chart states that he has a large back wound . Pt. agreeable to trying Ensure Enlive (no chocolate) BID and Pj BID. Pt. denied having N/V/D/C or swallowing/ chewing difficulties. Burn Absent Trauma Absent GI Symptoms None Food Allergy No Current % PO Poor (25-49%) Minimum of two criteria Yes Interpretation of Weight Loss (severe) > 20% in 1 year Body Fat Depletion Moderate depletion (severe) Muscle Mass Moderate Depletion (severe) Fluid Accumulation N/A #1 Nutrition Diagnosis Malnutrition Etiology diminished PO intake As Evidenced by Signs and Symptoms 26% weight-loss in one year, and moderate to severe fat and muscle wasting. Is patient on ventilator? No Is Patient Ambulatory and/or Out of Bed No REE-([place]-confined to bed) 1673.556 Kcal/Kg value to use for calculation 40 Approximate Energy Requirements Using 2268 kcal/Kg Calculation Used for Recommendations Kcal/kg Additional Notes PRO needs: 68-85g (1.2-1.5g/kg ) Fluid needs: 1 mL/kcal Nutrition Intervention Change Diet Order: Continue Low Sodium, Add Ensure Enlive and Pj BID Add Supplement/Snack (indicate name/kcal Ensure Enlive (strawberry or /protein ) vanilla) and Pj BID Provides kCal: 890 Provides Protein (gm) 45 Goal #1 Pt. to meet at least 80% of energy and protein needs through PO and ONS intakes. Goal #2 ONS tolerance Goal #3 Weight maintainance Anticipated Discharge Needs: Low Sodium diet Follow-Up By: 07/01/18 Additional Comments F/U: PO and ONS intake
--- NOTE | 2018-06-30 08:23 | Event Note ---
Date: 06/30/18 Patient sent in from SNF for Vancomycin resistant UTI. Also has LASHAE, sepsis,encephalopathy. I have seen and examined him with at bedside. Cons duc ID Physician.
[2018-06-30] MEDS ORDERED: K-DUR PO ONE (09:00)
[2018-06-30] MEDS: HEPARIN SUB-Q SCH ×2 (09:33→22:27)
--- NOTE | 2018-06-30 10:17 | Progress Note ---
Assessment and Plan Cultures: 06/28/2018 blood cultures: In progress 06/28/18 : Urine: Canidida Albicans A/P: 67-year-old male with paraplegia, myasthenia gravis, diabetes mellitus type 2 recently had a prolonged hospitalization when he was admitted to [facility] on 05/14/2018 and was found to have MRSA bacteremia, loculated intramuscular abscess in the gluteal muscles, left hip septic arthritis with trochanteric osteomyelitis, multiple decubitus ulcers including a stage IV sacral decubitus ulcer. He had an I&D of his right hip on 06/01/2018. Probable course was also complicated by VRE UTI in the setting of a suprapubic catheter for which he received antibiotics that ended on 05/24/2018. He was eventually discharged from the hospital on IV Zosyn and vancomycin for a total duration of 6 weeks with the planned end date of 06/29/2018 through a PICC line (ID physician was Dr. Us). Patient was discharged to [facility], now admitted here with: 1) SIRS versus sepsis, leukocytosis continuing: Could be related to the acute renal failure versus possibility of C. difficile given diarrhea. No evidence of pneumonia. He has a chronic indwelling suprapubic catheter. Follow-up blood cultures. 2) Diarrhea: Leukocytosis of 31,000 on admission, recent prolonged broad- spectrum antibiotic issues does increase risk of C. difficile. We will discontinue Zosyn and vancomycin, ordered stat C. difficile and started empirically PO vancomycin. 3) Acute renal failure: Based on review of his outside records, creatinine was around 1.8-2 in the end of May 2018 and now significantly worse at 13.3. Likely combination of supratherapeutic vancomycin related toxicity, Zosyn- Vancomycin combination and perhaps some volume loss from diarrhea. Nephrology following. Renal ultrasound negative for any obstructive uropathy. ?AIN, patient does have some peripheral eosinophilia. On bicarb drip. 4) Recent MRSA bacteremia with gluteal abscess, left hip osteomyelitis status post debridement and multiple decubitus ulcers: He was on IV Zosyn and vancom ycin for the last 6 weeks with a planned end date of 06/29/2018 which is today. His wounds appear to be healthy with good granulation tissue and no evidence of superinfection at this time. Would not recommend continuing antibiotics. Per outside records, echocardiogram was negative for endocarditis, source was thought to be the left hip and decubiti. 5) Multiple decubitus ulcers: Continue wound care 6) Question of VRE UTI: Patient with indwelling suprapubic catheter. UA shows pyuria. Urine culture growing Canidida Albicans. No antibiotics needed . Recs: - f/u C-Diff - started empiric PO Vancomycin pending C.diff results - follow up blood cultures, UA, urine culture - continue wound care Claudia Rowley NP [facility] M: [id number] O:[phone] Subjective Date of service: 06/30/18 Interval history: Patient seen and examined. Denies generalized pain, SOB or rash. Sister at bedside. Objective - Exam Narrative Exam: Constitutional: Alert, cooperative. No acute distress. Cachexia Head, Ears, Nose: Normocephalic, atraumatic. External ears, nose normal Eyes: Conjunctivae/corneas clear. No icterus. No ptosis. Neck: Supple, no meningeal signs Oral: no ulcers, no thrush Cardiovascular: S1, S2 normal. Respiratory: Good air entry, clear to auscultation bilaterally GI: mild diffuse tenderness, bowel sounds normal. No peritoneal signs. SPC +, right sided PICC + c/d/i Musculoskeletal: No pedal edema, no cyanosis. Multiple decubiti, sacral ulcer largest with clean pinkish base. Muscle wasting + Skin: No rash or abscess Hem/Lymphatic: No palpable cervical or supraclavicular nodes. No lymphangitis Psych: flat affect, no agitation Neurological: Awake, alert, oriented to place only. - Constitutional Vitals: Vital Signs Temp Pulse Resp BP Pulse Ox 98.3 F 60 18 172/90 100 06/30/18 04:52 06/30/18 04:52 06/30/18 04:52 06/30/18 04:52 06/30/18 04:52 Temperature -Last 24 Hours Temperature 98.3 F Temperature 98.1 F Temperature 98.1 F - Labs CBC & Chem 7: 06/30/18 06:07 06/30/18 05:54 Labs: Abnormal lab results 06/29/18 06/29/18 06/29/18 Range/Units 14:30 16:05 16:05 WBC (4.5-11.0) K/mm3 RBC (3.65-5.03) M/mm3 Hgb (11.8-15.2) gm/dl Hct (35.5-45.6) % MCHC (32-34) % RDW (13.2-15.2) % Sodium 150 H (137-145) mmol/L Potassium 3.3 L D (3.6-5.0) mmol/L Chloride 112.8 H (98-107) mmol/L Carbon Dioxide 8 L* (22-30) mmol/L BUN 64 H (9-20) mg/dL Creatinine 11.9 H (0.8-1.5) mg/dL Glucose 103 H (75-100) mg/dL Urine WBC (Auto) > 182.0 H (0.0-6.0) /HPF Urine Creatinine 32.9 H (0.1-20.0) mg/dL 06/30/18 06/30/18 Range/Units 05:54 06:07 WBC 20.7 H (4.5-11.0) K/mm3 RBC 2.71 L (3.65-5.03) M/mm3 Hgb 8.1 L (11.8-15.2) gm/dl Hct 23.4 L (35.5-45.6) % MCHC 35 H (32-34) % RDW 21.4 H (13.2-15.2) % Sodium 148 H (137-145) mmol/L Potassium 3.5 L (3.6-5.0) mmol/L Chloride 113.7 H (98-107) mmol/L Carbon Dioxide 10 L (22-30) mmol/L BUN 63 H (9-20) mg/dL Creatinine 11.6 H (0.8-1.5) mg/dL Glucose 61 L (75-100) mg/dL Urine WBC (Auto) (0.0-6.0) /HPF Urine Creatinine (0.1-20.0) mg/dL
--- NOTE | 2018-06-30 10:45 | Progress Note ---
Assessment and Plan 1. Acute kidney injury: Multifactorial LASHAE in the setting of volume depletion, sepsis and +/-Vancomycin. Likely ATN. Continue IV fluids. Monitor renal function. There is no improvement in the renal function since admission. Patient require hemodialysis due to persistent LASHAE associated with metabolic acidosis and encephalopathy. D/w his about indications, benefits and risks involved in hemodialysis and alternative options. She verbalized understanding and gave consent to proceed with hemodialysis. Vascular consulted for placement of hemodialysis catheter. Renal prognosis is guarded. Avoid nephrotoxic agents. Meds dosage based on GFR. 2. FEN: Volume depletion, continue IV fluids. Anion gap metabolic acidosis, likely secondary to LASHAE. Continue IV bicarbonate. Hypernatremia, hypotonic IV fluids. Hypokalemia, replete K. 3. Sepsis. 4. Multiple decubitus ulcers. 5. Paraplegia. 6. Myasthenia gravis. 7. Anemia: Likely multifactorial. Subjective Date of service: 06/30/18 Interval history: Patient was seen and examined at the bedside. Objective - Vital Signs Vital signs: Vital Signs - 12hr 06/29/18 06/30/18 23:27 04:52 Temperature 98.1 F 98.3 F Pulse Rate 64 60 Respiratory 18 18 Rate Blood Pressure 125/75 172/90 O2 Sat by Pulse 100 100 Oximetry - General Appearance General appearance: well-developed, appears stated age, cachectic, frail, other (not in distress) EENT: ATNC, PERRL, mucous membranes dry Neck: supple Respiratory: Present: Clear to Ascultation Cardiology: regular, S1S2, no murmurs Gastrointestinal: normoactive bowel sounds, no tenderness, no distended, other (suprapubic catheter noted) Integumentary: other (bilateral foot dressing) Neurologic: confused, disoriented, other (paraplegia) Musculoskeletal: other (no edema) - Lab 06/30/18 06:07 06/30/18 05:54 Most recent lab results Calcium 9.2 mg/dL (8.4-10.2) 06/30/18 05:54 Urine Creatinine 32.9 mg/dL (0.1-20.0) H 06/29/18 16:05 Urine Sodium 99 mmol/L 06/29/18 16:05 Medications & Allergies - Medications Allergies/Adverse Reactions: Allergies codeine Allergy (Verified 06/28/18 17:04) Unknown Home Medications: Home Medications Medication Instructions Recorded Confirmed Last Taken Type Unobtainable 06/28/18 06/28/18 Unknown History Active Medications: Generic Name Dose Route Start Last Admin Trade Name Freq PRN Reason Stop Dose Admin Heparin Sodium (Porcine) 5,000 unit 06/29/18 10:00 06/30/18 09:33 Heparin SUB-Q 5,000 unit Q12HR BEL Administration Sodium Bicarbonate 75 meq/ 1,075 mls @ 125 mls/hr 06/28/18 22:00 06/30/18 10:17 Sterile Water IV 125 mls/hr DIRECT BEL Administration Ondansetron HCl 4 mg 06/29/18 00:02 Zofran IV Q8H PRN Nausea And Vomiting Vancomycin HCl 125 mg 06/29/18 18:00 06/30/18 05:35 Vancomycin Po PO 125 mg Q6HR BEL Administration
[2018-06-30] MEDS ORDERED: NACL 0.9% 250ML 250 ML ONE (15:21)
[2018-06-30] MEDS ORDERED: HEPARIN/NS 5000 UNIT/500ML(CATH LAB) 500 ML IR ONE (15:23)
[2018-06-30] MEDS ORDERED: ANCEF/STERILE WATER 2 GM/20 ML 2 GM/20 ML SYRINGE IV ONE (15:23)
[2018-06-30] MEDS ORDERED: SUBLIMAZE ONE (15:28)
[2018-06-30] MEDS ORDERED: VERSED ONE (15:28)
[2018-06-30] MEDS ORDERED: NACL 0.9% 100 ML IV PRN (15:50)
[2018-06-30] MEDS: XYLOCAINE 2% INFILTRATI ONE ×2 (16:24→16:35)
[2018-06-30] MEDS: HEPARIN 10,000 UNITS/10 ML ONE ×4 (16:40→16:43)
--- NOTE | 2018-06-30 16:56 | Operative Report ---
Operative Report Operative Report: Operative note: Date: 06/30/2018 Preoperative diagnosis: Acute renal failure Postoperative diagnosis: Same. Operation: Placement of right femoral Vas-Cath Surgeon: Monique Calero. Asst.: None Anesthesia: Local EBL: Minimal Findings: Patient appears to be a vascularly depleted with flap internal jugular veins. Right femoral Vas-Cath in good position Indications: 67-year-old gentleman with multiple medical problems, paraplegic, with infectious process and diarrhea developed acute renal failure requiring hemodialysis. Risks, benefits and alternative procedure were discussed with patient's sister. She chose to proceed and signed informed consent. Operative details: Initially patient's right neck was prepped and draped in sterile fashion for placement of internal jugular Vas-Cath. However, bilaterally his internal jugular veins were flat. It was attempted to cannulate, but unsuccessful. Next, his right groin was prepped and draped in sterile fashion. Under continuous ultrasound guidance right femoral vein was accessed with a micropunch technique in standard fashion. J-wire was advanced proximally toward SVC. Tract was dilated with serial dilators and 30 cm dialysis catheter was inserted. All ports were flushed with good blood return. They were locked with heparin. Catheter was sutured in using 3-0 nylon. Steri le dressing was applied. Patient tolerated procedure well. Right neck was checked and no hematoma noted.
[2018-06-30 19:00] LABS: Hepatitis B Surface Antigen Non-Reactive (Negative); Hepatitis C Virus Antibody Non-Reactive (NonReactive)
[2018-07-01] MEDS: VANCOMYCIN PO PO SCH ×2 (00:15→06:12)
[2018-07-01] MEDS: SODIUM BICARBONATE IV SCH (06:58)
[2018-07-01] MEDS: STERILE WATER IV SCH (06:58)
[2018-07-01 07:03] LABS: Hematocrit 21.6 % (35.5-45.6); Hemoglobin 7.9 gm/dl (11.8-15.2); Mean Corpuscular HGB Conc 37 % (32-34); Mean Corpuscular Volume 82 fl (84-94); Platelet Count 231 K/mm3 (140-440); Red Blood Count 2.64 M/mm3 (3.65-5.03); Red Cell Distribution Width 19.9 % (13.2-15.2)
[2018-07-01 07:27] LABS: Calcium 8.2 mg/dL (8.4-10.2)
[2018-07-01] MEDS ORDERED: NACL 0.9% 100 ML IV PRN (08:08)
--- NOTE | 2018-07-01 08:08 | Progress Note ---
Subjective Date of service: 07/01/18 Objective - Vital Signs Vital signs: Vital Signs - 12hr 06/30/18 06/30/18 06/30/18 22:00 23:00 23:46 Temperature Pulse Rate 52 L Pulse Rate [ 70 Right Radial] Respiratory 17 18 20 Rate Blood Pressure 142/91 O2 Sat by Pulse 100 Oximetry 07/01/18 04:44 Temperature 92.5 F L Pulse Rate 75 Pulse Rate [ Right Radial] Respiratory 18 Rate Blood Pressure 136/83 O2 Sat by Pulse 100 Oximetry - Lab 07/01/18 06:34 07/01/18 06:34 Most recent lab results Calcium 8.2 mg/dL (8.4-10.2) L 07/01/18 06:34 Phosphorus 2.70 mg/dL (2.5-4.5) 07/01/18 06:34 Urine Creatinine 32.9 mg/dL (0.1-20.0) H 06/29/18 16:05 Urine Sodium 99 mmol/L 06/29/18 16:05 Medications & Allergies - Medications Allergies/Adverse Reactions: Allergies codeine Allergy (Verified 06/28/18 17:04) Unknown Home Medications: Home Medications Medication Instructions Recorded Confirmed Last Taken Type Unobtainable 06/28/18 06/28/18 Unknown History Active Medications: Generic Name Dose Route Start Last Admin Trade Name Freq PRN Reason Stop Dose Admin Heparin Sodium (Porcine) 5,000 unit 06/29/18 10:00 06/30/18 22:27 Heparin SUB-Q 5,000 unit Q12HR BEL Administration Sodium Bicarbonate 75 meq/ 1,075 mls @ 125 mls/hr 06/28/18 22:00 07/01/18 06:58 Sterile Water IV 125 mls/hr DIRECT BEL Administration Sodium Chloride 100 mls @ 999 mls/hr 06/30/18 15:50 Nacl 0.9% IV ADRY PRN Hypotension Ondansetron HCl 4 mg 06/29/18 00:02 Zofran IV Q8H PRN Nausea And Vomiting Vancomycin HCl 125 mg 06/29/18 18:00 07/01/18 06:12 Vancomycin Po PO 125 mg Q6HR BEL Administration
--- NOTE | 2018-07-01 08:09 | Progress Note ---
Assessment and Plan 1. Acute kidney injury: Multifactorial LASHAE in the setting of volume depletion, sepsis and +/-Vancomycin. Likely ATN. Continue IV fluids. Monitor renal function. Patient was started on hemodialysis yesterday due to persistent LASHAE and associated metabolic acidosis and encephalopathy. Next HD today. Renal prognosis is guarded. Avoid nephrotoxic agents. Meds dosage based on GFR. 2. FEN: Volume depletion, continue IV fluids. Anion gap metabolic acidosis, likely secondary to LASHAE. Continue IV bicarbonate drip. Hypernatremia, hypotonic IV fluids. Hypokalemia, high K bath with HD. 3. Sepsis. 4. Multiple decubitus ulcers. 5. Polymyoclonus. 6. Myasthenia gravis. 7. Paraplegia. 8. Anemia: Likely multifactorial. Subjective Date of service: 07/01/18 Interval history: Patient was seen and examined at the bedside. Objective - Vital Signs Vital signs: Vital Signs - 12hr 06/30/18 06/30/18 06/30/18 22:00 23:00 23:46 Temperature Pulse Rate 52 L Pulse Rate [ 70 Right Radial] Respiratory 17 18 20 Rate Blood Pressure 142/91 O2 Sat by Pulse 100 Oximetry 07/01/18 04:44 Temperature 92.5 F L Pulse Rate 75 Pulse Rate [ Right Radial] Respiratory 18 Rate Blood Pressure 136/83 O2 Sat by Pulse 100 Oximetry - General Appearance General appearance: well-developed, appears stated age, frail EENT: ATNC, PERRL, mucous membranes dry Neck: supple Respiratory: Present: Clear to Ascultation Cardiology: regular, S1S2, no murmurs Gastrointestinal: normoactive bowel sounds, no tenderness, no distended, other (suprapubic catheter noted) Integumentary: ulcer (both feet) Neurologic: other (jerky movements of the UEs noted, not moving the LEs) Musculoskeletal: other (no edema, right groin hemodialysis catheter) - Lab 07/01/18 06:34 07/01/18 09:50 Most recent lab results Calcium 8.2 mg/dL (8.4-10.2) L 07/01/18 06:34 Phosphorus 2.70 mg/dL (2.5-4.5) 07/01/18 06:34 Urine Creatinine 32.9 mg/dL (0.1-20.0) H 06/29/18 16:05 Urine Sodium 99 mmol/L 06/29/18 16:05 Medications & Allergies - Medications Allergies/Adverse Reactions: Allergies codeine Allergy (Verified 06/28/18 17:04) Unknown Home Medications: Home Medications Medication Instructions Recorded Confirmed Last Taken Type Unobtainable 06/28/18 06/28/18 Unknown History Active Medications: Generic Name Dose Route Start Last Admin Trade Name Freq PRN Reason Stop Dose Admin Heparin Sodium (Porcine) 5,000 unit 06/29/18 10:00 06/30/18 22:27 Heparin SUB-Q 5,000 unit Q12HR BEL Administration Sodium Bicarbonate 75 meq/ 1,075 mls @ 125 mls/hr 06/28/18 22:00 07/01/18 06:58 Sterile Water IV 125 mls/hr DIRECT BEL Administration Sodium Chloride 100 mls @ 999 mls/hr 06/30/18 15:50 Nacl 0.9% IV ADRY PRN Hypotension Ondansetron HCl 4 mg 06/29/18 00:02 Zofran IV Q8H PRN Nausea And Vomiting Vancomycin HCl 125 mg 06/29/18 18:00 07/01/18 06:12 Vancomycin Po PO 125 mg Q6HR BEL Administration
[2018-07-01] MEDS ORDERED: D50W (25GM) Syringe IV ONE (09:00)
--- NOTE | 2018-07-01 09:50 | Progress Note ---
Assessment and Plan Assessment and plan: SIRS vs sepsis ID Physician following history of MRSA infection Osteomyelitis left hip Completed treatment Jerky movement both upper exttremities, but awake,answering questions. Get CT head, EEG, consut Neuro start Leonela Mccallum prn sacral decub ulcer UTI Vancomycin LASHAE. Nephrology following,. will need hemodialysis metabolic acidosis. Cont bicarb drip Toxic metabolic encephalopathy Hypokalemia. Replace and recheck hypernatremia Malnutrition. Dietitian consulted Full code status History Interval history: Patient sent in for altered mental status Today has jerky movements both upper ext but was awake Hospitalist Physical - Physical exam Narrative exam: GEN: Not in acute distress, lying in bed,malnourished HEENT: Normocephalic, atraumatic, Neck: supple, No JVD Lungs: Clear to auscultation bilaterally, no wheeze Heart:S1 and S2 regular, no murmurs, rubs or gallop, Abd:soft, non tender, non distended, normal bowel sounds Ext: bilateral lower ext ulcers, no clubbing or cyanosis Neuro: Awake,alert, mild confused. Oriented to person, time, not to place.Jerky movements both upper ext sacrum:sacral ulcer - Constitutional Vitals: Temp Pulse Resp BP Pulse Ox 92.5 F L 79 12 113/51 99 07/01/18 04:44 07/01/18 09:37 07/01/18 09:37 07/01/18 09:37 07/01/18 09:37 Results - Labs CBC & Chem 7: 07/01/18 06:34 07/01/18 09:50 Labs: Laboratory Last Values WBC 19.4 K/mm3 (4.5-11.0) H 07/01/18 06:34 RBC 2.64 M/mm3 (3.65-5.03) L 07/01/18 06:34 Hgb 7.9 gm/dl (11.8-15.2) L 07/01/18 06:34 Hct 21.6 % (35.5-45.6) L 07/01/18 06:34 MCV 82 fl (84-94) L 07/01/18 06:34 MCH 30 pg (28-32) 07/01/18 06:34 MCHC 37 % (32-34) H 07/01/18 06:34 RDW 19.9 % (13.2-15.2) H 07/01/18 06:34 Plt Count 231 K/mm3 (140-440) 07/01/18 06:34 Add Manual Diff Complete 06/29/18 05:39 Total Counted 100 06/29/18 05:39 Seg Neuts % (Manual) 79.0 % (40.0-70.0) H 06/29/18 05:39 Band Neutrophils % 0 % 06/29/18 05:39 Lymphocytes % (Manual) 8.0 % (13.4-35.0) L 06/29/18 05:39 Reactive Lymphs % (Man) 0 % 06/29/18 05:39 Monocytes % (Manual) 7.0 % (0.0-7.3) 06/29/18 05:39 Eosinophils % (Manual) 5.0 % (0.0-4.3) H 06/29/18 05:39 Basophils % (Manual) 0 % (0.0-1.8) 06/29/18 05:39 Metamyelocytes % 0 % 06/29/18 05:39 Myelocytes % 1.0 % 06/29/18 05:39 Promyelocytes % 0 % 06/29/18 05:39 Blast Cells % 0 % 06/29/18 05:39 Nucleated RBC % 2.0 % (0.0-0.9) H 06/29/18 05:39 Seg Neutrophils # Man 16.9 K/mm3 (1.8-7.7) H 06/29/18 05:39 Band Neutrophils # 0.0 K/mm3 06/29/18 05:39 Lymphocytes # (Manual) 1.7 K/mm3 (1.2-5.4) 06/29/18 05:39 Abs React Lymphs (Man) 0.0 K/mm3 06/29/18 05:39 Monocytes # (Manual) 1.5 K/mm3 (0.0-0.8) H 06/29/18 05:39 Eosinophils # (Manual) 1.1 K/mm3 (0.0-0.4) H 06/29/18 05:39 Basophils # (Manual) 0.0 K/mm3 (0.0-0.1) 06/29/18 05:39 Metamyelocytes # 0.0 K/mm3 06/29/18 05:39 Myelocytes # 0.2 K/mm3 06/29/18 05:39 Promyelocytes # 0.0 K/mm3 06/29/18 05:39 Blast Cells # 0.0 K/mm3 06/29/18 05:39 WBC Morphology Not Reportable 06/29/18 05:39 Hypersegmented Neuts Not Reportable 06/29/18 05:39 Hyposegmented Neuts Not Reportable 06/29/18 05:39 Hypogranular Neuts Not Reportable 06/29/18 05:39 Smudge Cells Not Reportable 06/29/18 05:39 Toxic Granulation Not Reportable 06/29/18 05:39 Toxic Vacuolation Not Reportable 06/29/18 05:39 Dohle Bodies Not Reportable 06/29/18 05:39 Pelger-Huet Anomaly Not Reportable 06/29/18 05:39 Gina Rods Not Reportable 06/29/18 05:39 Platelet Estimate Consistent w auto 06/29/18 05:39 Clumped Platelets Not Reportable 06/29/18 05:39 Plt Clumps, EDTA Not Reportable 06/29/18 05:39 Large Platelets Not Reportable 06/29/18 05:39 Giant Platelets Not Reportable 06/29/18 05:39 Platelet Satelliting Not Reportable 06/29/18 05:39 Plt Morphology Comment Not Reportable 06/29/18 05:39 RBC Morphology Not Reportable 06/29/18 05:39 Dimorphic RBCs Not Reportable 06/29/18 05:39 Polychromasia Rare 06/29/18 05:39 Hypochromasia Not Reportable 06/29/18 05:39 Poikilocytosis 1+ 06/29/18 05:39 Anisocytosis 1+ 06/29/18 05:39 Microcytosis Not Reportable 06/29/18 05:39 Macrocytosis Not Reportable 06/29/18 05:39 Spherocytes Not Reportable 06/29/18 05:39 Pappenheimer Bodies Not Reportable 06/29/18 05:39 Sickle Cells Not Reportable 06/29/18 05:39 Target Cells Not Reportable 06/29/18 05:39 Tear Drop Cells Not Reportable 06/29/18 05:39 Ovalocytes Few 06/29/18 05:39 Helmet Cells Not Reportable 06/29/18 05:39 [place] Bodies Not Reportable 06/29/18 05:39 [place] Rings Not Reportable 06/29/18 05:39 Nolan Cells 1+ 06/29/18 05:39 Bite Cells Not Reportable 06/29/18 05:39 Crenated Cell Not Reportable 06/29/18 05:39 Elliptocytes Not Reportable 06/29/18 05:39 Acanthocytes (Spur) Not Reportable 06/29/18 05:39 Rouleaux Not Reportable 06/29/18 05:39 Hemoglobin C Crystals Not Reportable 06/29/18 05:39 Schistocytes Not Reportable 06/29/18 05:39 Malaria parasites Not Reportable 06/29/18 05:39 [place] Bodies Not Reportable 06/29/18 05:39 Hem Pathologist Commnt No 06/29/18 05:39 Sodium 143 mmol/L (137-145) 07/01/18 06:34 Potassium 3.3 mmol/L (3.6-5.0) L 07/01/18 06:34 Chloride 102.6 mmol/L (98-107) 07/01/18 06:34 Carbon Dioxide 18 mmol/L (22-30) L D 07/01/18 06:34 Anion Gap 26 mmol/L 07/01/18 06:34 BUN 34 mg/dL (9-20) H 07/01/18 06:34 Creatinine 6.4 mg/dL (0.8-1.5) H 07/01/18 06:34 Estimated GFR 11 ml/min 07/01/18 06:34 BUN/Creatinine Ratio 5 % 07/01/18 06:34 Glucose 56 mg/dL (75-100) L 07/01/18 06:34 Lactic Acid 1.80 mmol/L (0.7-2.0) 07/01/18 06:34 Calcium 8.2 mg/dL (8.4-10.2) L 07/01/18 06:34 Phosphorus 2.70 mg/dL (2.5-4.5) 07/01/18 06:34 Total Bilirubin 0.40 mg/dL (0.1-1.2) 06/28/18 18:25 AST 28 units/L (5-40) 06/28/18 18:25 ALT 10 units/L (7-56) 06/28/18 18:25 Alkaline Phosphatase 200 units/L (35-129) H 06/28/18 18:25 Total Creatine Kinase 47 units/L (55-170) L 06/29/18 05:39 Total Protein 6.1 g/dL (6.3-8.2) L 06/28/18 18:25 Albumin 1.9 g/dL (3.9-5) L 06/28/18 18:25 Albumin/Globulin Ratio 0.5 % 06/28/18 18:25 TSH 0.937 mlU/mL (0.270-4.200) 06/29/18 00:45 Urine Color Yellow (Yellow) 06/29/18 16:05 Urine Turbidity Turbid (Clear) 06/29/18 16:05 Urine pH 5.0 (5.0-7.0) 06/29/18 16:05 Ur Specific [place] 1.009 (1.003-1.030) 06/29/18 16:05 Urine Protein 100 mg/dl mg/dL (Negative) 06/29/18 16:05 Urine Glucose (UA) Neg mg/dL (Negative) 06/29/18 16:05 Urine Ketones Neg mg/dL (Negative) 06/29/18 16:05 Urine Blood Mod (Negative) 06/29/18 16:05 Urine Nitrite Neg (Negative) 06/29/18 16:05 Urine Bilirubin Neg (Negative) 06/29/18 16:05 Urine Urobilinogen < 2.0 mg/dL (<2.0) 06/29/18 16:05 Ur Leukocyte Esterase Lg (Negative) 06/29/18 16:05 Urine WBC (Auto) > 182.0 /HPF (0.0-6.0) H 06/29/18 16:05 Urine RBC (Auto) 88.0 /HPF (0.0-6.0) 06/29/18 16:05 U Epithel Cells (Auto) 10.0 /HPF (0-13.0) 06/29/18 16:05 Urine Bacteria (Auto) 4+ /HPF (Negative) 06/29/18 16:05 Urine WBC Clumps 3+ /HPF 06/29/18 16:05 Ur Transition Epith Cell 1 /HPF 06/29/18 16:05 Urine Mucus Few /HPF 06/29/18 16:05 Urine Yeast (Budding) 3+ /HPF 06/29/18 16:05 Urine Eosinophils 1.0% (None Seen) 06/29/18 15:55 Urine Creatinine 32.9 mg/dL (0.1-20.0) H 06/29/18 16:05 Urine Sodium 99 mmol/L 06/29/18 16:05 C. difficile Toxin A&B Negative (Negative) 06/29/18 Unknown Hepatitis A IgM Ab Non-reactive (NonReactive) 06/30/18 18:15 Hep Bs Antigen Non-reactive (Negative) 06/30/18 18:15 Hep B Core IgM Ab Non-reactive (NonReactive) 06/30/18 18:15 Hepatitis C Antibody Non-reactive (NonReactive) 06/30/18 18:15 Nutrition/Malnutrition Assess - Dietary Evaluation Nutrition/Malnutrition Findings: Nutrition Notes Start: 06/29/18 10:59 Freq: Status: Active Protocol: Document 06/29/18 10:59 ER (Rec: 06/29/18 11:26 ER [id number]) Co-Sign 06/29/18 10:59 LP Nutrition Notes Need for Assessment generated from: Low BMI Initial or Follow up Assessment Current Diagnosis Hypertension Other Pertinent Diagnosis Metabolic enceph., arthritis, osteomyelitis, MRSA, myasthenia gravis Current Diet Low Sodium Labs/Tests Na: 153 K: 2.7 Cl: 115.9 CO2: 7 BUN: 64 Cr: 12 Albumin: 1.9 Pertinent Medications Reviewed Height 6 ft Weight 56.7 kg Usual Body Weight 77 kg [place] Body Weight (kg) 80.90 BMI 16.9 Weight change and time frame 45# in one year (26% weight- loss) Weight Status Emaciated Subjective/Other Information Pt. screened for Low BMI. Pt. stated UBW of 170# one year ago. Pt. stated that he has an "ok" appetite, but felt too tired to eat his breakfast. Pt . was unsure if he ate dinner last night. Pt. stated he was eating when he wanted to eat [employer]. Pt. has visible fat and muscle wasting in the orbital and temporal regions and forearms. Pt. chart states that he has a large back wound . Pt. agreeable to trying Ensure Enlive (no chocolate) BID and Pj BID. Pt. denied having N/V/D/C or swallowing/ chewing difficulties. Burn Absent Trauma Absent GI Symptoms None Food Allergy No Current % PO Poor (25-49%) Minimum of two criteria Yes Interpretation of Weight Loss (severe) > 20% in 1 year Body Fat Depletion Moderate depletion (severe) Muscle Mass Moderate Depletion (severe) Fluid Accumulation N/A #1 Nutrition Diagnosis Malnutrition Etiology diminished PO intake As Evidenced by Signs and Symptoms 26% weight-loss in one year, and moderate to severe fat and muscle wasting. Is patient on ventilator? No Is Patient Ambulatory and/or Out of Bed No REE-([facility]-confined to bed) 1673.556 Kcal/Kg value to use for calculation 40 Approximate Energy Requirements Using 2268 kcal/Kg Calculation Used for Recommendations Kcal/kg Additional Notes PRO needs: 68-85g (1.2-1.5g/kg ) Fluid needs: 1 mL/kcal Nutrition Intervention Change Diet Order: Continue Low Sodium, Add Ensure Enlive and Pj BID Add Supplement/Snack (indicate name/kcal Ensure Enlive (strawberry or /protein ) vanilla) and Pj BID Provides kCal: 890 Provides Protein (gm) 45 Goal #1 Pt. to meet at least 80% of energy and protein needs through PO and ONS intakes. Goal #2 ONS tolerance Goal #3 Weight maintainance Anticipated Discharge Needs: Low Sodium diet Follow-Up By: 07/01/18 Additional Comments F/U: PO and ONS intake
--- NOTE | 2018-07-01 10:59 | Progress Note ---
Assessment and Plan Cultures: 06/28/2018 blood cultures: no growth 06/28/18 : Urine: Canidida Albicans A/P: 67-year-old male with paraplegia, myasthenia gravis, diabetes mellitus type 2 recently had a prolonged hospitalization when he was admitted to [facility] on 05/14/2018 and was found to have MRSA bacteremia, loculated intramuscular abscess in the gluteal muscles, left hip septic arthritis with trochanteric osteomyelitis, multiple decubitus ulcers including a stage IV sacral decubitus ulcer. He had an I&D of his right hip on 06/01/2018. Probable course was also complicated by VRE UTI in the setting of a suprapubic catheter for which he received antibiotics that ended on 05/24/2018. He was eventually di scharged from the hospital on IV Zosyn and vancomycin for a total duration of 6 weeks with the planned end date of 06/29/2018 through a PICC line (ID physician was Dr. Us). Patient was discharged to [facility], now admitted here with: 1) SIRS versus sepsis, leukocytosis continuing, trending down : Could be related to the acute renal failure versus possibility of C. difficile given diarrhea. No evidence of pneumonia. He has a chronic indwelling suprapubic catheter. Follow- up blood cultures. 2) Diarrhea: Leukocytosis of 31,000 on admission, recent prolonged broad- spectrum antibiotic issues does increase risk of C. difficile. We will discontinue Zosyn and vancomycin, ordered stat C. difficile negative, discontinue vancomycin 3) Acute renal failure: Based on review of his outside records, creatinine was around 1.8-2 in the end of May 2018 and now significantly worse at 13.3. Likely combination of supratherapeutic vancomycin related toxicity, Zosyn- Vancomycin combination and perhaps some volume loss from diarrhea. Nephrology following. Renal ultrasound negative for any obstructive uropathy. ?AIN, patient does have some peripheral eosinophilia. On bicarb drip. 4) Recent MRSA bacteremia with gluteal abscess, left hip osteomyelitis status post debridement and multiple decubitus ulcers: He was on IV Zosyn and vancomycin for the last 6 weeks with a planned end date of 06/29/2018 which is today. His wounds appear to be healthy with good granulation tissue and no evidence of superinfection at this time. Would not recommend continuing antibiotics. Per outside records, echocardiogram was negative for endocarditis, source was thought to be the left hip and decubiti. 5) Multiple decubitus ulcers: Continue wound care 6) Question of VRE UTI: Patient with indwelling suprapubic catheter. UA shows pyuria. Urine culture growing Canidida Albicans. No antibiotics needed . 7) Acute Encephalitis: new onset seizures- neurology consulted Recs: - Discontnue PO Vancomycin C.diff negative - follow up blood cultures - continue wound care Dr. Calderon will be occupational therapy asst this weekend , please call for questions. Claudia Rowley NP [facility] M: [phone] O:[phone] Subjective Date of service: 07/01/18 Interval history: Patient seen and examined. Patient in acute distress with tremors, questionable seizure activity, nurse at bedside. family at bedside. Objective - Exam Narrative Exam: Constitutional: Alert, cooperative. Acute distress, possible seizure activity. . Cachexia Head, Ears, Nose: Normocephalic, atraumatic. External ears, nose normal Eyes: Conjunctivae/corneas clear. No icterus. No ptosis. Neck: Supple, no meningeal signs Oral: no ulcers, no thrush Cardiovascular: S1, S2 normal. Respiratory: Good air entry, clear to auscultation bilaterally GI: mild diffuse tenderness, bowel sounds normal. No peritoneal signs. SPC +, right sided PICC + c/d/i Musculoskeletal: No pedal edema, no cyanosis. Multiple decubiti, sacral ulcer largest with clean pinkish base. Muscle wasting + Skin: No rash or abscess Hem/Lymphatic: No palpable cervical or supraclavicular nodes. No lymphangitis Psych: acute distress Neurological: acute distress, +/- seizure activity observed - Constitutional Vitals: Vital Signs Temp Pulse Resp BP Pulse Ox 92.5 F L 79 12 113/51 99 07/01/18 04:44 07/01/18 09:37 07/01/18 09:37 07/01/18 09:37 07/01/18 09:37 Temperature -Last 24 Hours Temperature 92.5 F Temperature 98.3 F Temperature 98.3 F - Labs CBC & Chem 7: 07/01/18 06:34 07/01/18 09:50 Labs: Abnormal lab results 06/30/18 06/30/18 06/30/18 Range/Units 18:15 19:18 20:26 WBC (4.5-11.0) K/mm3 RBC (3.65-5.03) M/mm3 Hgb (11.8-15.2) gm/dl Hct (35.5-45.6) % MCV (84-94) fl MCHC (32-34) % RDW (13.2-15.2) % Potassium (3.6-5.0) mmol/L Carbon Dioxide (22-30) mmol/L BUN (9-20) mg/dL Creatinine (0.8-1.5) mg/dL Glucose (75-100) mg/dL Lactic Acid 2.10 H* 2.20 H* 2.40 H* (0.7-2.0) mmol/L Calcium (8.4-10.2) mg/dL 06/30/18 07/01/18 07/01/18 Range/Units 22:34 06:34 06:34 WBC 19.4 H (4.5-11.0) K/mm3 RBC 2.64 L (3.65-5.03) M/mm3 Hgb 7.9 L (11.8-15.2) gm/dl Hct 21.6 L (35.5-45.6) % MCV 82 L (84-94) fl MCHC 37 H (32-34) % RDW 19.9 H (13.2-15.2) % Potassium 3.3 L (3.6-5.0) mmol/L Carbon Dioxide 18 L D (22-30) mmol/L BUN 34 H (9-20) mg/dL Creatinine 6.4 H (0.8-1.5) mg/dL Glucose 56 L (75-100) mg/dL Lactic Acid 3.10 H* (0.7-2.0) mmol/L Calcium 8.2 L (8.4-10.2) mg/dL 07/01/18 Range/Units 09:50 WBC (4.5-11.0) K/mm3 RBC (3.65-5.03) M/mm3 Hgb (11.8-15.2) gm/dl Hct (35.5-45.6) % MCV (84-94) fl MCHC (32-34) % RDW (13.2-15.2) % Potassium (3.6-5.0) mmol/L Carbon Dioxide (22-30) mmol/L BUN (9-20) mg/dL Creatinine (0.8-1.5) mg/dL Glucose 115 H (75-100) mg/dL Lactic Acid (0.7-2.0) mmol/L Calcium (8.4-10.2) mg/dL
[2018-07-01] MEDS ORDERED: ATIVAN IV PRN (12:25)
--- NOTE | 2018-07-01 16:30 | Progress Note ---
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 and while on dialysis did stop briefly which does mean that ity is possible this is metabolic but doubt pure epileptic seizure suspect one of the medications is contributioning to this the keppra should be continued Objective - Vital Sign Vital Signs - 12hr 07/01/18 07/01/18 07/01/18 04:44 09:37 13:50 Temperature 92.5 F L 92.5 F L Pulse Rate 75 79 82 Respiratory 18 12 12 Rate Blood Pressure 136/83 113/51 169/149 O2 Sat by Pulse 100 99 Oximetry 07/01/18 07/01/18 07/01/18 14:00 14:15 14:37 Temperature Pulse Rate 83 79 84 Respiratory Rate Blood Pressure 136/73 72/34 75/48 O2 Sat by Pulse Oximetry 07/01/18 07/01/18 07/01/18 14:45 15:02 15:16 Temperature Pulse Rate 79 81 80 Respiratory Rate Blood Pressure 86/49 136/67 79/39 O2 Sat by Pulse Oximetry 07/01/18 07/01/18 07/01/18 15:30 15:45 16:01 Temperature Pulse Rate 81 82 94 H Respiratory Rate Blood Pressure 88/58 90/53 81/46 O2 Sat by Pulse Oximetry 07/01/18 16:15 Temperature Pulse Rate 88 Respiratory Rate Blood Pressure 93/52 O2 Sat by Pulse Oximetry - Laboratory Findings CBC and BMP: 07/01/18 06:34 07/01/18 09:50 Abnormal Lab Findings: Abnormal Labs 06/28/18 06/28/18 06/29/18 18:25 18:25 05:39 WBC 31.2 H 21.4 H RBC 3.01 L 2.66 L Hgb 9.1 L 8.1 L Hct 26.6 L 23.4 L MCV MCHC 35 H RDW 20.5 H 20.7 H Seg Neuts % (Manual) 72.0 H 79.0 H Lymphocytes % (Manual) 8.0 L Eosinophils % (Manual) 5.0 H Nucleated RBC % 2.0 H 2.0 H Seg Neutrophils # Man 22.5 H 16.9 H Lymphocytes # (Manual) 7.2 H Monocytes # (Manual) 0.9 H 1.5 H Eosinophils # (Manual) 1.1 H Sodium 155 H Potassium 3.2 L Chloride 120.3 H Carbon Dioxide 6 L* BUN 67 H Creatinine 13.3 H Glucose Lactic Acid Calcium Alkaline Phosphatase 200 H Total Creatine Kinase Total Protein 6.1 L Albumin 1.9 L Urine WBC (Auto) Urine Creatinine 06/29/18 06/29/18 06/29/18 05:39 14:30 16:05 WBC RBC Hgb Hct MCV MCHC RDW Seg Neuts % (Manual) Lymphocytes % (Manual) Eosinophils % (Manual) Nucleated RBC % Seg Neutrophils # Man Lymphocytes # (Manual) Monocytes # (Manual) Eosinophils # (Manual) Sodium 153 H 150 H Potassium 2.7 L* 3.3 L D Chloride 115.9 H 112.8 H Carbon Dioxide 7 L* 8 L* BUN 64 H 64 H Creatinine 12.0 H 11.9 H Glucose 67 L 103 H Lactic Acid Calcium Alkaline Phosphatase Total Creatine Kinase 47 L Total Protein Albumin Urine WBC (Auto) > 182.0 H Urine Creatinine 06/29/18 06/30/18 06/30/18 16:05 05:54 06:07 WBC 20.7 H RBC 2.71 L Hgb 8.1 L Hct 23.4 L MCV MCHC 35 H RDW 21.4 H Seg Neuts % (Manual) Lymphocytes % (Manual) Eosinophils % (Manual) Nucleated RBC % Seg Neutrophils # Man Lymphocytes # (Manual) Monocytes # (Manual) Eosinophils # (Manual) Sodium 148 H Potassium 3.5 L Chloride 113.7 H Carbon Dioxide 10 L BUN 63 H Creatinine 11.6 H Glucose 61 L Lactic Acid Calcium Alkaline Phosphatase Total Creatine Kinase Total Protein Albumin Urine WBC (Auto) Urine Creatinine 32.9 H 06/30/18 06/30/18 06/30/18 18:15 19:18 20:26 WBC RBC Hgb Hct MCV MCHC RDW Seg Neuts % (Manual) Lymphocytes % (Manual) Eosinophils % (Manual) Nucleated RBC % Seg Neutrophils # Man Lymphocytes # (Manual) Monocytes # (Manual) Eosinophils # (Manual) Sodium Potassium Chloride Carbon Dioxide BUN Creatinine Glucose Lactic Acid 2.10 H* 2.20 H* 2.40 H* Calcium Alkaline Phosphatase Total Creatine Kinase Total Protein Albumin Urine WBC (Auto) Urine Creatinine 06/30/18 07/01/18 07/01/18 22:34 06:34 06:34 WBC 19.4 H RBC 2.64 L Hgb 7.9 L Hct 21.6 L MCV 82 L MCHC 37 H RDW 19.9 H Seg Neuts % (Manual) Lymphocytes % (Manual) Eosinophils % (Manual) Nucleated RBC % Seg Neutrophils # Man Lymphocytes # (Manual) Monocytes # (Manual) Eosinophils # (Manual) Sodium Potassium 3.3 L Chloride Carbon Dioxide 18 L D BUN 34 H Creatinine 6.4 H Glucose 56 L Lactic Acid 3.10 H* Calcium 8.2 L Alkaline Phosphatase Total Creatine Kinase Total Protein Albumin Urine WBC (Auto) Urine Creatinine 07/01/18 09:50 WBC RBC Hgb Hct MCV MCHC RDW Seg Neuts % (Manual) Lymphocytes % (Manual) Eosinophils % (Manual) Nucleated RBC % Seg Neutrophils # Man Lymphocytes # (Manual) Monocytes # (Manual) Eosinophils # (Manual) Sodium Potassium Chloride Carbon Dioxide BUN Creatinine Glucose 115 H Lactic Acid Calcium Alkaline Phosphatase Total Creatine Kinase Total Protein Albumin Urine WBC (Auto) Urine Creatinine
[2018-07-01] MEDS: D50W (25GM) Syringe IV PRN (20:02)
[2018-07-01] MEDS: KEPPRA 750 MG in D5W 100 ML IV SCH (22:40)
[2018-07-01] MEDS: HEPARIN SUB-Q SCH (22:41)
[2018-07-02] MEDS ORDERED: STERILE WATER IV SCH (06:00)
[2018-07-02] MEDS ORDERED: SODIUM BICARBONATE IV SCH (06:00)
[2018-07-02] MEDS: SODIUM BICARBONATE IV SCH (06:25)
[2018-07-02] MEDS: STERILE WATER IV SCH (06:25)
[2018-07-02] MEDS: D50W (25GM) Syringe IV PRN (06:38)
[2018-07-02 06:52] LABS: Hematocrit 23.1 % (35.5-45.6); Hemoglobin 8.3 gm/dl (11.8-15.2); Mean Corpuscular HGB Conc 36 % (32-34); Mean Corpuscular Volume 82 fl (84-94); Platelet Count 223 K/mm3 (140-440); Red Blood Count 2.81 M/mm3 (3.65-5.03)
[2018-07-02 06:54] LABS: Red Cell Distribution Width 20.2 % (13.2-15.2)
[2018-07-02 07:11] LABS: Calcium 7.9 mg/dL (8.4-10.2)
[2018-07-02] MEDS ORDERED: KPHOS 30 MMOL in NACL 0.9% 500 ML 500 ML IV ONE (09:00)
--- NOTE | 2018-07-02 09:35 | Progress Note ---
Assessment and Plan 1. Acute kidney injury: Multifactorial LASHAE in the setting of volume depletion, sepsis and +/-Vancomycin. Likely ATN. Continue IV fluids. Monitor renal function. Patient was started on hemodialysis on 06/30/2018 due to persistent LASHAE and associated metabolic acidosis and encephalopathy. Last dialyzed yesterday. Renal prognosis is guarded. Avoid nephrotoxic agents. Meds dosage based on GFR. 2. FEN: Volume depletion, continue IV fluids. Anion gap metabolic acidosis, likely secondary to LASHAE. Continue IV bicarbonate drip. Hypernatremia, hypotonic IV fluids. Hypokalemia, replete K. 3. Sepsis. 4. Multiple decubitus ulcers. 5. Polymyoclonus. 6. Myasthenia gravis. 7. Paraplegia. 8. Anemia: Likely multifactorial. Subjective Date of service: 07/02/18 Interval history: Patient was seen and examined at the bedside. Objective - Vital Signs Vital signs: Vital Signs - 12hr 07/01/18 07/02/18 07/02/18 22:00 00:24 05:24 Temperature 98.0 F 98.0 F Pulse Rate 73 Pulse Rate [ 90 Right Radial] Respiratory 17 18 20 Rate Blood Pressure 95/66 137/100 O2 Sat by Pulse 98 Oximetry - General Appearance General appearance: well-developed, appears stated age, frail, other (not in distress) EENT: ATNC, PERRL Neck: supple Respiratory: Present: Clear to Ascultation Cardiology: regular, S1S2, no murmurs Gastrointestinal: normoactive bowel sounds, no tenderness, no distended, other (suprapubic catheter) Integumentary: other (bilateral foot dressing. wound vac noted) Neurologic: other (paraplegia, able to move UEs) Musculoskeletal: other (no edema, right groin hemodialysis catheter) - Lab 07/02/18 06:30 07/02/18 06:30 Most recent lab results Calcium 7.9 mg/dL (8.4-10.2) L 07/02/18 06:30 Phosphorus 1.90 mg/dL (2.5-4.5) L D 07/02/18 06:30 Urine Creatinine 32.9 mg/dL (0.1-20.0) H 06/29/18 16:05 Urine Sodium 99 mmol/L 06/29/18 16:05 Medications & Allergies - Medications Allergies/Adverse Reactions: Allergies codeine Allergy (Verified 06/28/18 17:04) Unknown Home Medications: Home Medications Medication Instructions Recorded Confirmed Last Taken Type Unobtainable 06/28/18 06/28/18 Unknown History Active Medications: Generic Name Dose Route Start Last Admin Trade Name Freq PRN Reason Stop Dose Admin Dextrose 50 ml 07/01/18 18:46 07/02/18 06:38 D50w (25gm) Syringe IV 50 ml PRN PRN Administration Hypoglycemia Heparin Sodium (Porcine) 5,000 unit 06/29/18 10:00 07/01/18 22:41 Heparin SUB-Q 5,000 unit Q12HR BEL Administration Sodium Bicarbonate 75 meq/ 1,075 mls @ 125 mls/hr 06/28/18 22:00 07/02/18 06:25 Sterile Water IV 125 mls/hr DIRECT BEL Administration Sodium Chloride 100 mls @ 999 mls/hr 07/01/18 08:08 Nacl 0.9% IV ADRY PRN Hypotension Levetiracetam 750 mg/ Dextrose 107.5 mls @ 400 mls/hr 07/01/18 11:30 07/01/18 22:40 IV 400 mls/hr Q12HR BEL Administration Potassium Phosphate 30 mmol/ 510 mls @ 83 mls/hr 07/02/18 09:00 Sodium Chloride IV 07/02/18 15:08 ONCE ONE Lorazepam 1 mg 07/01/18 12:25 Ativan IV Q4H PRN seizures, jerky movements Ondansetron HCl 4 mg 06/29/18 00:02 Zofran IV Q8H PRN Nausea And Vomiting
--- NOTE | 2018-07-02 09:55 | Progress Note ---
Assessment and Plan Assessment and plan: SIRS vs sepsis ID Physician following history of MRSA infection Osteomyelitis left hip Completed treatment Jerky movement both upper exttremities, but awake,answering questions, yesterday 07/01, now resolved Get CT head, EEG, consult Neuro started Keppra, Ativan prn Poor appetite, not eating,.lethargic Place Dobhoff tube, start tube feeding sacral decub ulcer UTI Vancomycin LASHAE due to ATN, improving Nephrology following,. Hemodialysis started metabolic acidosis. Cont bicarb drip Toxic metabolic encephalopathy Hypokalemia. Replace and recheck hypernatremia Malnutrition. Dietitian consulted Full code status History Interval history: Patient sent in for altered mental status Yesterday 07/01 had jerky movements both upper ext but was awake, now resolved Hospitalist Physical - Physical exam Narrative exam: GEN: Not in acute distress, lying in bed,malnourished HEENT: Normocephalic, atraumatic, Neck: supple, No JVD Lungs: Clear to auscultation bilaterally, no wheeze Heart:S1 and S2 regular, no murmurs, rubs or gallop, Abd:soft, non tender, non distended, normal bowel sounds Ext: bilateral lower ext ulcers, no clubbing or cyanosis Neuro: Awake,alert, mild confused. Oriented to person, time, not to place. no jerky movements currently sacrum:sacral ulcer - Constitutional Vitals: Temp Pulse Resp BP Pulse Ox 97.3 F L 70 18 91/63 100 07/02/18 09:35 07/02/18 09:35 07/02/18 09:35 07/02/18 09:35 07/02/18 09:35 Results - Labs CBC & Chem 7: 07/02/18 06:30 07/02/18 06:30 Labs: Laboratory Last Values WBC 24.2 K/mm3 (4.5-11.0) H 07/02/18 06:30 RBC 2.81 M/mm3 (3.65-5.03) L 07/02/18 06:30 Hgb 8.3 gm/dl (11.8-15.2) L 07/02/18 06:30 Hct 23.1 % (35.5-45.6) L 07/02/18 06:30 MCV 82 fl (84-94) L 07/02/18 06:30 MCH 30 pg (28-32) 07/02/18 06:30 MCHC 36 % (32-34) H 07/02/18 06:30 RDW 20.2 % (13.2-15.2) H 07/02/18 06:30 Plt Count 223 K/mm3 (140-440) 07/02/18 06:30 Add Manual Diff Complete 06/29/18 05:39 Total Counted 100 06/29/18 05:39 Seg Neuts % (Manual) 79.0 % (40.0-70.0) H 06/29/18 05:39 Band Neutrophils % 0 % 06/29/18 05:39 Lymphocytes % (Manual) 8.0 % (13.4-35.0) L 06/29/18 05:39 Reactive Lymphs % (Man) 0 % 06/29/18 05:39 Monocytes % (Manual) 7.0 % (0.0-7.3) 06/29/18 05:39 Eosinophils % (Manual) 5.0 % (0.0-4.3) H 06/29/18 05:39 Basophils % (Manual) 0 % (0.0-1.8) 06/29/18 05:39 Metamyelocytes % 0 % 06/29/18 05:39 Myelocytes % 1.0 % 06/29/18 05:39 Promyelocytes % 0 % 06/29/18 05:39 Blast Cells % 0 % 06/29/18 05:39 Nucleated RBC % 2.0 % (0.0-0.9) H 06/29/18 05:39 Seg Neutrophils # Man 16.9 K/mm3 (1.8-7.7) H 06/29/18 05:39 Band Neutrophils # 0.0 K/mm3 06/29/18 05:39 Lymphocytes # (Manual) 1.7 K/mm3 (1.2-5.4) 06/29/18 05:39 Abs React Lymphs (Man) 0.0 K/mm3 06/29/18 05:39 Monocytes # (Manual) 1.5 K/mm3 (0.0-0.8) H 06/29/18 05:39 Eosinophils # (Manual) 1.1 K/mm3 (0.0-0.4) H 06/29/18 05:39 Basophils # (Manual) 0.0 K/mm3 (0.0-0.1) 06/29/18 05:39 Metamyelocytes # 0.0 K/mm3 06/29/18 05:39 Myelocytes # 0.2 K/mm3 06/29/18 05:39 Promyelocytes # 0.0 K/mm3 06/29/18 05:39 Blast Cells # 0.0 K/mm3 06/29/18 05:39 WBC Morphology Not Reportable 06/29/18 05:39 Hypersegmented Neuts Not Reportable 06/29/18 05:39 Hyposegmented Neuts Not Reportable 06/29/18 05:39 Hypogranular Neuts Not Reportable 06/29/18 05:39 Smudge Cells Not Reportable 06/29/18 05:39 Toxic Granulation Not Reportable 06/29/18 05:39 Toxic Vacuolation Not Reportable 06/29/18 05:39 Dohle Bodies Not Reportable 06/29/18 05:39 Pelger-Huet Anomaly Not Reportable 06/29/18 05:39 Gina Rods Not Reportable 06/29/18 05:39 Platelet Estimate Consistent w auto 06/29/18 05:39 Clumped Platelets Not Reportable 06/29/18 05:39 Plt Clumps, EDTA Not Reportable 06/29/18 05:39 Large Platelets Not Reportable 06/29/18 05:39 Giant Platelets Not Reportable 06/29/18 05:39 Platelet Satelliting Not Reportable 06/29/18 05:39 Plt Morphology Comment Not Reportable 06/29/18 05:39 RBC Morphology Not Reportable 06/29/18 05:39 Dimorphic RBCs Not Reportable 06/29/18 05:39 Polychromasia Rare 06/29/18 05:39 Hypochromasia Not Reportable 06/29/18 05:39 Poikilocytosis 1+ 06/29/18 05:39 Anisocytosis 1+ 06/29/18 05:39 Microcytosis Not Reportable 06/29/18 05:39 Macrocytosis Not Reportable 06/29/18 05:39 Spherocytes Not Reportable 06/29/18 05:39 Pappenheimer Bodies Not Reportable 06/29/18 05:39 Sickle Cells Not Reportable 06/29/18 05:39 Target Cells Not Reportable 06/29/18 05:39 Tear Drop Cells Not Reportable 06/29/18 05:39 Ovalocytes Few 06/29/18 05:39 Helmet Cells Not Reportable 06/29/18 05:39 [place] Bodies Not Reportable 06/29/18 05:39 [place] Rings Not Reportable 06/29/18 05:39 Gridley Cells 1+ 06/29/18 05:39 Bite Cells Not Reportable 06/29/18 05:39 Crenated Cell Not Reportable 06/29/18 05:39 Elliptocytes Not Reportable 06/29/18 05:39 Acanthocytes (Spur) Not Reportable 06/29/18 05:39 Rouleaux Not Reportable 06/29/18 05:39 Hemoglobin C Crystals Not Reportable 06/29/18 05:39 Schistocytes Not Reportable 06/29/18 05:39 Malaria parasites Not Reportable 06/29/18 05:39 [place]um Bodies Not Reportable 06/29/18 05:39 Hem Pathologist Commnt No 06/29/18 05:39 Sodium 141 mmol/L (137-145) 07/02/18 06:30 Potassium 3.1 mmol/L (3.6-5.0) L 07/02/18 06:30 Chloride 101.4 mmol/L (98-107) 07/02/18 06:30 Carbon Dioxide 24 mmol/L (22-30) 07/02/18 06:30 Anion Gap 19 mmol/L 07/02/18 06:30 BUN 17 mg/dL (9-20) 07/02/18 06:30 Creatinine 4.1 mg/dL (0.8-1.5) H 07/02/18 06:30 Estimated GFR 18 ml/min 07/02/18 06:30 BUN/Creatinine Ratio 4 % 07/02/18 06:30 Glucose 86 mg/dL (75-100) 07/02/18 06:30 POC Glucose 74 (70-105) 07/02/18 06:19 Lactic Acid 1.80 mmol/L (0.7-2.0) 07/01/18 06:34 Calcium 7.9 mg/dL (8.4-10.2) L 07/02/18 06:30 Phosphorus 1.90 mg/dL (2.5-4.5) L D 07/02/18 06:30 Total Bilirubin 0.40 mg/dL (0.1-1.2) 06/28/18 18:25 AST 28 units/L (5-40) 06/28/18 18:25 ALT 10 units/L (7-56) 06/28/18 18:25 Alkaline Phosphatase 200 units/L (35-129) H 06/28/18 18:25 Total Creatine Kinase 47 units/L (55-170) L 06/29/18 05:39 Total Protein 6.1 g/dL (6.3-8.2) L 06/28/18 18:25 Albumin 1.9 g/dL (3.9-5) L 06/28/18 18:25 Albumin/Globulin Ratio 0.5 % 06/28/18 18:25 TSH 0.937 mlU/mL (0.270-4.200) 06/29/18 00:45 Urine Color Yellow (Yellow) 06/29/18 16:05 Urine Turbidity Turbid (Clear) 06/29/18 16:05 Urine pH 5.0 (5.0-7.0) 06/29/18 16:05 Ur Specific Coleman 1.009 (1.003-1.030) 06/29/18 16:05 Urine Protein 100 mg/dl mg/dL (Negative) 06/29/18 16:05 Urine Glucose (UA) Neg mg/dL (Negative) 06/29/18 16:05 Urine Ketones Neg mg/dL (Negative) 06/29/18 16:05 Urine Blood Mod (Negative) 06/29/18 16:05 Urine Nitrite Neg (Negative) 06/29/18 16:05 Urine Bilirubin Neg (Negative) 06/29/18 16:05 Urine Urobilinogen < 2.0 mg/dL (<2.0) 06/29/18 16:05 Ur Leukocyte Esterase Lg (Negative) 06/29/18 16:05 Urine WBC (Auto) > 182.0 /HPF (0.0-6.0) H 06/29/18 16:05 Urine RBC (Auto) 88.0 /HPF (0.0-6.0) 06/29/18 16:05 U Epithel Cells (Auto) 10.0 /HPF (0-13.0) 06/29/18 16:05 Urine Bacteria (Auto) 4+ /HPF (Negative) 06/29/18 16:05 Urine WBC Clumps 3+ /HPF 06/29/18 16:05 Ur Transition Epith Cell 1 /HPF 06/29/18 16:05 Urine Mucus Few /HPF 06/29/18 16:05 Urine Yeast (Budding) 3+ /HPF 06/29/18 16:05 Urine Eosinophils 1.0% (None Seen) 06/29/18 15:55 Urine Creatinine 32.9 mg/dL (0.1-20.0) H 06/29/18 16:05 Urine Sodium 99 mmol/L 06/29/18 16:05 C. difficile Toxin A&B Negative (Negative) 06/29/18 Unknown Hepatitis A IgM Ab Non-reactive (NonReactive) 06/30/18 18:15 Hep Bs Antigen Non-reactive (Negative) 06/30/18 18:15 Hep B Core IgM Ab Non-reactive (NonReactive) 06/30/18 18:15 Hepatitis C Antibody Non-reactive (NonReactive) 06/30/18 18:15 Nutrition/Malnutrition Assess - Dietary Evaluation Nutrition/Malnutrition Findings: Nutrition Notes Start: 06/29/18 10:59 Freq: Status: Active Protocol: Document 07/01/18 12:38 ER (Rec: 07/01/18 12:45 ER [id number]) Co-Sign 07/01/18 12:38 LP Nutrition Notes Initial or Follow up Reassessment Current Diagnosis Hypertension Other Pertinent Diagnosis Metabolic enceph., arthritis, osteomyelitis, MRSA, myasthenia gravis Current Diet Pureed diet Labs/Tests K: 3.3 B Pertinent Medications Reviewed Height 6 ft Weight 56.7 kg [place] Body Weight (kg) 80.90 BMI 16.9 Subjective/Other Information Pt. unable to communicate with mortgage underwriter. Ensure Enlive and Pj at bedside unopened. Per RN, pt. PO intake has been poor. Family at bedside discussing POC. Percent of energy/protein needs met: 0% Burn Absent Trauma Absent Current % PO Negligible #1 Nutrition Diagnosis Malnutrition Diagnosis Progress(for reassessment Continues documentation) Is patient on ventilator? No Is Patient Ambulatory and/or Out of Bed No REE-([facility]-confined to bed) 1673.556 Kcal/Kg value to use for calculation 40 Approximate Energy Requirements Using 2268 kcal/Kg Calculation Used for Recommendations Kcal/kg Additional Notes PRO needs: 68-85g (1.2-1.5g/kg ) Fluid needs: 1 mL/kcal Nutrition Intervention Change Diet Order: Continue current Nutrition Support: If TF ordered: Jevity 1.2 at 70 mL/hr with 150 mL water flush to meet needs Add Supplement/Snack (indicate name/kcal Ensure Enlive (strawberry or /protein ) vanilla) d/c Pj Provides kCal: 700 Provides Protein (gm) 40 Goal #1 Pt. to meet energy and nutrient needs as best as possible. Goal #2 Weight maintenance Anticipated Discharge Needs: Unable to be determined at this time Follow-Up By: 07/05/18 Additional Comments F/U: POC
[2018-07-02] MEDS: HEPARIN SUB-Q SCH ×4 (11:03→21:30)
[2018-07-02] MEDS: KEPPRA 750 MG in D5W 100 ML IV SCH ×3 (12:10→21:27)
--- NOTE | 2018-07-02 13:51 | Progress Note ---
Assessment and Plan Cultures: 06/28/2018 blood cultures: no growth 06/28/18 : Urine: Canidida Albicans A/P: 67-year-old male with paraplegia, myasthenia gravis, diabetes mellitus type 2 recently had a prolonged hospitalization when he was admitted to [facility] [place] on 05/14/2018 and was found to have MRSA bacteremia, loculated intramuscular abscess in the gluteal muscles, left hip septic arthritis with trochanteric osteomyelitis, multiple decubitus ulcers including a stage IV sacral decubitus ulcer. He had an I&D of his right hip on 06/01/2018. Probable course was also complicated by VRE UTI in the setting of a suprapubic catheter for which he received antibiotics that ended on 05/24/2018. He was eventually discharged from the hospital on IV Zosyn and vancomycin for a total duration of 6 weeks with the planned end date of 06/29/2018 through a PICC line (ID physician was Dr. Us). Patient was discharged to [facility], now admitted here with: 1) SIRS versus sepsis, leukocytosis continuing: Could be reactive from the acute renal failure. C. difficile negative. No evidence of pneumonia. He has a chronic indwelling suprapubic catheter. All cultures unrevealing thus far. 2) Diarrhea: improving. C. difficile negative, off PO vancomycin. 3) Acute renal failure: Likely combination of supratherapeutic vancomycin related toxicity, Zosyn-Vancomycin combination and perhaps some volume loss from diarrhea. Nephrology following. Renal ultrasound negative for any obstructive uropathy. Now on HD. 4) Recent MRSA bacteremia with gluteal abscess, left hip osteomyelitis status post debridement and multiple decubitus ulcers: He was on IV Zosyn and vancomycin for the last 6 weeks with a planned end date of 06/29/2018 which is today. His wounds appear to be healthy with good granulation tissue and no evidence of superinfection at this time. Would not recommend continuing antibiotics. Per outside records, echocardiogram was negative for endocarditis, source was thought to be the left hip and decubiti. 5) Multiple decubitus ulcers: Continue wound care. 6) Question of VRE UTI: Patient with indwelling suprapubic catheter. UA shows pyuria. Urine culture growing Migdalia albicans. No treatment needed. 7) Acute encephalopathy: seems to be at baseline. Recs: - continue off abx - continue wound care - monitor CBC and for any fevers Will follow. Please call with questions. Raul Calderon MD [facility] C: [phone] O: [phone] F: [phone] Subjective Date of service: 07/02/18 Interval history: awake, no fever, no complaints. Objective - Exam Narrative Exam: Physical Exam: Constitutional: Alert, cooperative. No acute distress. Cachexia Head, Ears, Nose: Normocephalic, atraumatic. External ears, nose normal Eyes: Conjunctivae/corneas clear. No icterus. Left eye ptosis Neck: Supple, no meningeal signs Oral: no ulcers, no thrush Cardiovascular: S1, S2 normal. Respiratory: Good air entry, clear to auscultation bilaterally GI: soft, non tender, bowel sounds normal. No peritoneal signs. SPC +, right sided PICC + c/d/i Musculoskeletal: No pedal edema, no cyanosis. Multiple decubiti, sacral ulcer largest with clean pinkish base. Muscle wasting + Skin: No rash or abscess Hem/Lymphatic: No palpable cervical or supraclavicular nodes. No lymphangitis Psych: calm, no agitation Neurological: Awake, alert, oriented. - Constitutional Vitals: Vital Signs Temp Pulse Resp BP Pulse Ox 97.3 F L 70 18 91/63 100 07/02/18 09:35 07/02/18 09:35 07/02/18 09:35 07/02/18 09:35 07/02/18 09:35 Temperature -Last 24 Hours Temperature 97.3 F Temperature 98.0 F Temperature 98.0 F Temperature 94.7 F Temperature 97.2 F Temperature 92.5 F - Labs CBC & Chem 7: 07/02/18 06:30 07/02/18 06:30 Labs: Abnormal lab results 07/01/18 07/01/18 07/02/18 Range/Units 18:11 21:10 06:30 WBC 24.2 H (4.5-11.0) K/mm3 RBC 2.81 L (3.65-5.03) M/mm3 Hgb 8.3 L (11.8-15.2) gm/dl Hct 23.1 L (35.5-45.6) % MCV 82 L (84-94) fl MCHC 36 H (32-34) % RDW 20.2 H (13.2-15.2) % Potassium (3.6-5.0) mmol/L Creatinine (0.8-1.5) mg/dL POC Glucose 68 L 142 H (70-105) Calcium (8.4-10.2) mg/dL Phosphorus (2.5-4.5) mg/dL 07/02/18 Range/Units 06:30 WBC (4.5-11.0) K/mm3 RBC (3.65-5.03) M/mm3 Hgb (11.8-15.2) gm/dl Hct (35.5-45.6) % MCV (84-94) fl MCHC (32-34) % RDW (13.2-15.2) % Potassium 3.1 L (3.6-5.0) mmol/L Creatinine 4.1 H (0.8-1.5) mg/dL POC Glucose (70-105) Calcium 7.9 L (8.4-10.2) mg/dL Phosphorus 1.90 L D (2.5-4.5) mg/dL
[2018-07-02] MEDS ORDERED: PANCREAZE DR 10,500 UNIT FEEDTUBE PRN (16:07)
[2018-07-02] MEDS ORDERED: SIMPLE SYRUP FEEDTUBE PRN ×2 (16:07)
[2018-07-02] MEDS ORDERED: SODIUM BICARBONATE FEEDTUBE PRN (16:07)
[2018-07-03] MEDS: STERILE WATER IV SCH (01:18)
[2018-07-03] MEDS: SODIUM BICARBONATE IV SCH (01:18)
[2018-07-03 07:36] LABS: Hemoglobin 7.1 gm/dl (11.8-15.2); Mean Corpuscular HGB Conc 36 % (32-34); Mean Corpuscular Volume 83 fl (84-94); Platelet Count 161 K/mm3 (140-440); Red Blood Count 2.33 M/mm3 (3.65-5.03)
[2018-07-03 07:41] LABS: Hematocrit 19.4 % (35.5-45.6)
[2018-07-03 07:47] LABS: Calcium 7.6 mg/dL (8.4-10.2)
[2018-07-03] MEDS ORDERED: MAGNESIUM SULFATE 2GM/50ML 2 GM/50 ML BAG IV ONE (07:55)
[2018-07-03] MEDS: KCL 10MEQ/100ML 10 MEQ/100 ML BAG IV SCH ×4 (09:00→14:25)
[2018-07-03 09:55] LABS: Hematocrit 20.7 % (35.5-45.6); Hemoglobin 7.6 gm/dl (11.8-15.2); Mean Corpuscular HGB Conc 37 % (32-34); Mean Corpuscular Volume 83 fl (84-94); Platelet Count 163 K/mm3 (140-440); Red Blood Count 2.51 M/mm3 (3.65-5.03)
[2018-07-03 09:56] LABS: Red Cell Distribution Width 20.8 % (13.2-15.2)
[2018-07-03 10:18] LABS: Albumin 1.9 g/dL (3.9-5); Calcium 7.6 mg/dL (8.4-10.2)
--- NOTE | 2018-07-03 11:18 | Progress Note ---
Assessment and Plan 1. Acute kidney injury: Multifactorial LASHAE in the setting of volume depletion, sepsis and +/-Vancomycin. Likely ATN. Continue IV fluids. Monitor renal function. Patient was started on hemodialysis on 06/30/2018 due to persistent LASHAE and associated metabolic acidosis and encephalopathy. Last dialyzed 2 days ago. Renal prognosis is guarded. Avoid nephrotoxic agents. Meds dosage based on GFR. 2. FEN: Volume depletion, continue IV fluids. Anion gap metabolic acidosis, likely secondary to LASHAE. Continue IV bicarbonate drip. Hypernatremia, improved. Hypokalemia, replete K. 3. Sepsis. 4. Multiple decubitus ulcers. 5. Polymyoclonus: Resolved. 6. Myasthenia gravis. 7. Paraplegia. 8. Anemia: Likely multifactorial. Subjective Date of service: 07/03/18 Interval history: Patient was seen and examined at the bedside. Objective - Vital Signs Vital signs: Vital Signs - 12hr 07/03/18 07/03/18 07/03/18 00:00 04:47 08:14 Pulse Rate 60 53 L 54 L Respiratory 18 16 14 Rate Blood Pressure 146/85 130/74 Blood Pressure 98/71 [Left] O2 Sat by Pulse 97 98 100 Oximetry - General Appearance General appearance: well-developed, appears stated age, other (not in distress, emaciated) EENT: ATNC, PERRL Neck: supple Respiratory: Present: Clear to Ascultation Cardiology: regular, S1S2, no murmurs Gastrointestinal: normoactive bowel sounds, other (suprapubic catheter noted) Integumentary: other (dressing over both feet) Neurologic: other (paraplegia) Musculoskeletal: other (no edema, right groin hemodialysis catheter) - Lab 07/03/18 09:51 07/03/18 09:51 Most recent lab results Calcium 7.6 mg/dL (8.4-10.2) L 07/03/18 09:51 Phosphorus 3.90 mg/dL (2.5-4.5) D 07/03/18 06:25 Magnesium 1.50 mg/dL (1.7-2.3) L 07/03/18 06:25 Urine Creatinine 32.9 mg/dL (0.1-20.0) H 06/29/18 16:05 Urine Sodium 99 mmol/L 06/29/18 16:05 Medications & Allergies - Medications Allergies/Adverse Reactions: Allergies codeine Allergy (Verified 06/28/18 17:04) Unknown Home Medications: Home Medications Medication Instructions Recorded Confirmed Last Taken Type Unobtainable 06/28/18 06/28/18 Unknown History Active Medications: Generic Name Dose Route Start Last Admin Trade Name Freq PRN Reason Stop Dose Admin Lipase/Protease/Amylase 1 each 07/02/18 16:07 Pancrenikole Jean 10,500 Unit FEEDTUBE PRN PRN For Clogged Feeding Tube Dextrose 50 ml 07/01/18 18:46 07/02/18 06:38 D50w (25gm) Syringe IV 50 ml PRN PRN Administration Hypoglycemia Heparin Sodium (Porcine) 5,000 unit 06/29/18 10:00 07/02/18 21:30 Heparin SUB-Q Not Given Q12HR BEL Sodium Bicarbonate 75 meq/ 1,075 mls @ 125 mls/hr 06/28/18 22:00 07/03/18 01:18 Sterile Water IV 125 mls/hr DIRECT BEL Administration Sodium Chloride 100 mls @ 999 mls/hr 07/01/18 08:08 Nacl 0.9% IV ADRY PRN Hypotension Levetiracetam 750 mg/ Dextrose 107.5 mls @ 400 mls/hr 07/01/18 11:30 07/03/18 00:00 IV 400 mls/hr Q12HR BEL Administration Potassium Chloride 10 meq in 100 mls @ 100 mls/hr 07/03/18 09:00 Kcl 10meq/100ml IV 07/03/18 12:59 Q1H BEL Lorazepam 1 mg 07/01/18 12:25 Ativan IV Q4H PRN seizures, jerky movements Ondansetron HCl 4 mg 06/29/18 00:02 Zofran IV Q8H PRN Nausea And Vomiting Simple Syrup 15 ml 07/02/18 16:07 Simple Syrup FEEDTUBE PRN PRN Hypoglycemia Simple Syrup 30 ml 07/02/18 16:07 Simple Syrup FEEDTUBE PRN PRN Hypoglycemia Sodium Bicarbonate 325 mg 07/02/18 16:07 Sodium Bicarbonate FEEDTUBE PRN PRN For Clogged Feeding Tube
[2018-07-03] MEDS: HEPARIN SUB-Q SCH ×2 (11:46→23:04)
[2018-07-03] MEDS: KEPPRA 750 MG in D5W 100 ML IV SCH ×3 (11:49→23:20)
[2018-07-03] MEDS: K-DUR PO SCH (11:51)
--- NOTE | 2018-07-03 17:13 | Progress Note ---
Assessment and Plan Assessment and plan: SIRS vs sepsis ID Physician following history of MRSA infection Osteomyelitis left hip Completed treatment Jerky movement both upper exttremities, but awake,answering questions, on 07/01, now resolved Get CT head, EEG, consult Neuro started Keppra, Ativan prn Poor appetite, was not eating,.lethargic Ordered Dobhoff tube, and to start tube feeding, however he started eating orally again - pureed diet sacral decub ulcer UTI Vancomycin LASHAE due to ATN, improving Nephrology following,. Hemodialysis started metabolic acidosis. Cont bicarb drip Toxic metabolic encephalopathy Hypokalemia. Replace and recheck hypernatremia Malnutrition. Dietitian consulted Full code status History Interval history: Patient sent in for altered mental status On 07/01 had jerky movements both upper ext but was awake, now resolved More awake today, eating Hospitalist Physical - Physical exam Narrative exam: GEN: Not in acute distress, lying in bed,malnourished HEENT: Normocephalic, atraumatic, Neck: supple, No JVD Lungs: Clear to auscultation bilaterally, no wheeze Heart:S1 and S2 regular, no murmurs, rubs or gallop, Abd:soft, non tender, non distended, normal bowel sounds Ext: bilateral lower ext ulcers, no clubbing or cyanosis Neuro: Awake,alert, mild confused. Oriented to person, time, not to place. no jerky movements currently sacrum:sacral ulcer - Constitutional Vitals: Temp Pulse Resp BP Pulse Ox 98.0 F 54 L 14 130/74 100 07/02/18 09:44 07/03/18 08:14 07/03/18 08:14 07/03/18 08:14 07/03/18 08:14 Results - Labs CBC & Chem 7: 07/03/18 09:51 07/03/18 09:51 Labs: Laboratory Last Values WBC 16.7 K/mm3 (4.5-11.0) H 07/03/18 09:51 RBC 2.51 M/mm3 (3.65-5.03) L 07/03/18 09:51 Hgb 7.6 gm/dl (11.8-15.2) L 07/03/18 09:51 Hct 20.7 % (35.5-45.6) L 07/03/18 09:51 MCV 83 fl (84-94) L 07/03/18 09:51 MCH 30 pg (28-32) 07/03/18 09:51 MCHC 37 % (32-34) H 07/03/18 09:51 RDW 20.8 % (13.2-15.2) H 07/03/18 09:51 Plt Count 163 K/mm3 (140-440) 07/03/18 09:51 Add Manual Diff Complete 06/29/18 05:39 Total Counted 100 06/29/18 05:39 Seg Neuts % (Manual) 79.0 % (40.0-70.0) H 06/29/18 05:39 Band Neutrophils % 0 % 06/29/18 05:39 Lymphocytes % (Manual) 8.0 % (13.4-35.0) L 06/29/18 05:39 Reactive Lymphs % (Man) 0 % 06/29/18 05:39 Monocytes % (Manual) 7.0 % (0.0-7.3) 06/29/18 05:39 Eosinophils % (Manual) 5.0 % (0.0-4.3) H 06/29/18 05:39 Basophils % (Manual) 0 % (0.0-1.8) 06/29/18 05:39 Metamyelocytes % 0 % 06/29/18 05:39 Myelocytes % 1.0 % 06/29/18 05:39 Promyelocytes % 0 % 06/29/18 05:39 Blast Cells % 0 % 06/29/18 05:39 Nucleated RBC % 2.0 % (0.0-0.9) H 06/29/18 05:39 Seg Neutrophils # Man 16.9 K/mm3 (1.8-7.7) H 06/29/18 05:39 Band Neutrophils # 0.0 K/mm3 06/29/18 05:39 Lymphocytes # (Manual) 1.7 K/mm3 (1.2-5.4) 06/29/18 05:39 Abs React Lymphs (Man) 0.0 K/mm3 06/29/18 05:39 Monocytes # (Manual) 1.5 K/mm3 (0.0-0.8) H 06/29/18 05:39 Eosinophils # (Manual) 1.1 K/mm3 (0.0-0.4) H 06/29/18 05:39 Basophils # (Manual) 0.0 K/mm3 (0.0-0.1) 06/29/18 05:39 Metamyelocytes # 0.0 K/mm3 06/29/18 05:39 Myelocytes # 0.2 K/mm3 06/29/18 05:39 Promyelocytes # 0.0 K/mm3 06/29/18 05:39 Blast Cells # 0.0 K/mm3 06/29/18 05:39 WBC Morphology Not Reportable 06/29/18 05:39 Hypersegmented Neuts Not Reportable 06/29/18 05:39 Hyposegmented Neuts Not Reportable 06/29/18 05:39 Hypogranular Neuts Not Reportable 06/29/18 05:39 Smudge Cells Not Reportable 06/29/18 05:39 Toxic Granulation Not Reportable 06/29/18 05:39 Toxic Vacuolation Not Reportable 06/29/18 05:39 Dohle Bodies Not Reportable 06/29/18 05:39 Pelger-Huet Anomaly Not Reportable 06/29/18 05:39 Gina Rods Not Reportable 06/29/18 05:39 Platelet Estimate Consistent w auto 06/29/18 05:39 Clumped Platelets Not Reportable 06/29/18 05:39 Plt Clumps, EDTA Not Reportable 06/29/18 05:39 Large Platelets Not Reportable 06/29/18 05:39 Giant Platelets Not Reportable 06/29/18 05:39 Platelet Satelliting Not Reportable 06/29/18 05:39 Plt Morphology Comment Not Reportable 06/29/18 05:39 RBC Morphology Not Reportable 06/29/18 05:39 Dimorphic RBCs Not Reportable 06/29/18 05:39 Polychromasia Rare 06/29/18 05:39 Hypochromasia Not Reportable 06/29/18 05:39 Poikilocytosis 1+ 06/29/18 05:39 Anisocytosis 1+ 06/29/18 05:39 Microcytosis Not Reportable 06/29/18 05:39 Macrocytosis Not Reportable 06/29/18 05:39 Spherocytes Not Reportable 06/29/18 05:39 Pappenheimer Bodies Not Reportable 06/29/18 05:39 Sickle Cells Not Reportable 06/29/18 05:39 Target Cells Not Reportable 06/29/18 05:39 Tear Drop Cells Not Reportable 06/29/18 05:39 Ovalocytes Few 06/29/18 05:39 Helmet Cells Not Reportable 06/29/18 05:39 Lange-Upland Bodies Not Reportable 06/29/18 05:39 Keystone Rings Not Reportable 06/29/18 05:39 Nolan Cells 1+ 06/29/18 05:39 Bite Cells Not Reportable 06/29/18 05:39 Crenated Cell Not Reportable 06/29/18 05:39 Elliptocytes Not Reportable 06/29/18 05:39 Acanthocytes (Spur) Not Reportable 06/29/18 05:39 Rouleaux Not Reportable 06/29/18 05:39 Hemoglobin C Crystals Not Reportable 06/29/18 05:39 Schistocytes Not Reportable 06/29/18 05:39 Malaria parasites Not Reportable 06/29/18 05:39 Nahum Bodies Not Reportable 06/29/18 05:39 Hem Pathologist Commnt No 06/29/18 05:39 Sodium 140 mmol/L (137-145) 07/03/18 09:51 Potassium 2.7 mmol/L (3.6-5.0) L* 07/03/18 09:51 Chloride 97.8 mmol/L (98-107) L 07/03/18 09:51 Carbon Dioxide 24 mmol/L (22-30) 07/03/18 09:51 Anion Gap 21 mmol/L 07/03/18 09:51 BUN 21 mg/dL (9-20) H 07/03/18 09:51 Creatinine 4.3 mg/dL (0.8-1.5) H 07/03/18 09:51 Estimated GFR 17 ml/min 07/03/18 09:51 BUN/Creatinine Ratio 5 % 07/03/18 09:51 Glucose 82 mg/dL (75-100) 07/03/18 09:51 POC Glucose 83 (70-105) 07/02/18 12:30 Lactic Acid 1.80 mmol/L (0.7-2.0) 07/01/18 06:34 Calcium 7.6 mg/dL (8.4-10.2) L 07/03/18 09:51 Phosphorus 3.90 mg/dL (2.5-4.5) D 07/03/18 06:25 Magnesium 1.50 mg/dL (1.7-2.3) L 07/03/18 06:25 Total Bilirubin 0.40 mg/dL (0.1-1.2) 07/03/18 09:51 AST 34 units/L (5-40) 07/03/18 09:51 ALT 9 units/L (7-56) 07/03/18 09:51 Alkaline Phosphatase 375 units/L (35-129) H 07/03/18 09:51 Total Creatine Kinase 47 units/L (55-170) L 06/29/18 05:39 Total Protein 5.1 g/dL (6.3-8.2) L 07/03/18 09:51 Albumin 1.9 g/dL (3.9-5) L 07/03/18 09:51 Albumin/Globulin Ratio 0.6 % 07/03/18 09:51 TSH 0.937 mlU/mL (0.270-4.200) 06/29/18 00:45 Urine Color Yellow (Yellow) 06/29/18 16:05 Urine Turbidity Turbid (Clear) 06/29/18 16:05 Urine pH 5.0 (5.0-7.0) 06/29/18 16:05 Ur Specific [place] 1.009 (1.003-1.030) 06/29/18 16:05 Urine Protein 100 mg/dl mg/dL (Negative) 06/29/18 16:05 Urine Glucose (UA) Neg mg/dL (Negative) 06/29/18 16:05 Urine Ketones Neg mg/dL (Negative) 06/29/18 16:05 Urine Blood Mod (Negative) 06/29/18 16:05 Urine Nitrite Neg (Negative) 06/29/18 16:05 Urine Bilirubin Neg (Negative) 06/29/18 16:05 Urine Urobilinogen < 2.0 mg/dL (<2.0) 06/29/18 16:05 Ur Leukocyte Esterase Lg (Negative) 06/29/18 16:05 Urine WBC (Auto) > 182.0 /HPF (0.0-6.0) H 06/29/18 16:05 Urine RBC (Auto) 88.0 /HPF (0.0-6.0) 06/29/18 16:05 U Epithel Cells (Auto) 10.0 /HPF (0-13.0) 06/29/18 16:05 Urine Bacteria (Auto) 4+ /HPF (Negative) 06/29/18 16:05 Urine WBC Clumps 3+ /HPF 06/29/18 16:05 Ur Transition Epith Cell 1 /HPF 06/29/18 16:05 Urine Mucus Few /HPF 06/29/18 16:05 Urine Yeast (Budding) 3+ /HPF 06/29/18 16:05 Urine Eosinophils 1.0% (None Seen) 06/29/18 15:55 Urine Creatinine 32.9 mg/dL (0.1-20.0) H 06/29/18 16:05 Urine Sodium 99 mmol/L 06/29/18 16:05 C. difficile Toxin A&B Negative (Negative) 06/29/18 Unknown Hepatitis A IgM Ab Non-reactive (NonReactive) 06/30/18 18:15 Hep Bs Antigen Non-reactive (Negative) 06/30/18 18:15 Hep B Core IgM Ab Non-reactive (NonReactive) 06/30/18 18:15 Hepatitis C Antibody Non-reactive (NonReactive) 06/30/18 18:15 Nutrition/Malnutrition Assess - Dietary Evaluation Nutrition/Malnutrition Findings: Nutrition Notes Start: 06/29/18 10:59 Freq: Status: Active Protocol: Document 07/02/18 15:49 RM (Rec: 07/02/18 16:06 RM [id number]) Nutrition Notes Initial or Follow up Reassessment Current Diagnosis Acute Kidney Injury Hypertension Other Pertinent Diagnosis Encephalopathy,osteomyelitis, MRSA,Multiple PUs,myasthenia gravis,on HD Current Diet Pureed diet Labs/Tests Reviewed Pertinent Medications Reviewed Height 6 ft Weight 56.7 kg [place] Body Weight (kg) 80.90 BMI 16.9 Subjective/Other Information Consulted for TF recommendation. Burn Absent Trauma Absent #1 Nutrition Diagnosis Malnutrition Diagnosis Progress(for reassessment Continues documentation) Is patient on ventilator? No Is Patient Ambulatory and/or Out of Bed No REE-([facility]-confined to bed) 1673.556 Kcal/Kg value to use for calculation 38 Approximate Energy Requirements Using 2155 kcal/Kg Calculation Used for Recommendations Kcal/kg Additional Notes PRO needs: 68-85g (1.2-1.5g/kg ) Fluid needs: 1 mL/kcal Nutrition Intervention Change Diet Order: D/C Nutrition Support: Jevity 1.2 at 70 ml/hr. Water flush of 100 mls q 4 hrs . Kcal 2,016 Protein (gm) 93 Fluid (mL) 1,356 Goal #1 TF tolerance Goal #2 Meet at least 75% of calorie and protein needs via TF Goal #3 Wt mainteance/gain Anticipated Discharge Needs: Unable to be determined at this time Follow-Up By: 07/04/18 Additional Comments Follow for TF tolerance
--- NOTE | 2018-07-03 19:53 | Consultation ---
HISTORY OF PRESENT ILLNESS: This is a 67-year-old black male who is admitted to [facility] primarily for complications of renal disease. After admission, the patient was noted to have some coarse jerking in his arms and Dr. Swain asked that I see the patient. He has a prior medical history of being a long end-stage dialysis. 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 I asked him about this and he admits to having this problem for a very long period. I did review over his CT scan of the head, which is unremarkable. I do not see any marked abnormalities. I have reviewed his hematocrit at this point is 23.1, white blood count was 24,000. Potassium is 3.1, sodium is 141. Phosphorus level is 1.90 and prior to that had been 3.90. I saw the patient during the time of dialysis. He was having coarse jerking myoclonic movements in both the extremities, it was very typical for metabolic disturbance. I do not think this represents a seizure. The patient was able to speak to me, was talking during that time, he was clearly responding fairly well in between the movements. I do not see any evidence to suggest this focal seizure activity is more likely is some form of myoclonus. Does not have an underlying brain lesion. He has chronic end-stage renal disease, uremic encephalopathy, causation of the white count elevation is to be considered. I think his overall problem is electrolyte imbalance and we will get an EEG. JOB# [id number] CHRISTIANO/JULIA
[2018-07-04] MEDS: KCL 10MEQ/100ML 10 MEQ/100 ML BAG IV SCH ×2 (01:53→03:30)
[2018-07-04 06:23] LABS: Hemoglobin 7.6 gm/dl (11.8-15.2); Mean Corpuscular HGB Conc 36 % (32-34); Mean Corpuscular Volume 84 fl (84-94); Platelet Count 149 K/mm3 (140-440); Red Blood Count 2.51 M/mm3 (3.65-5.03)
[2018-07-04 06:27] LABS: Red Cell Distribution Width 20.8 % (13.2-15.2)
[2018-07-04 06:29] LABS: Calcium 7.5 mg/dL (8.4-10.2)
[2018-07-04 08:08] LABS: Basophils % (Manual) 0 % (0.0-1.8); Monocytes % (Manual) 0 % (0.0-7.3); Total Cells Counted 100
[2018-07-04 08:10] LABS: Anisocytosis 1+; Ovalocytes Few; Platelet Estimate Consistent w Auto; Poikilocytosis 1+; Target Cells 1+
--- NOTE | 2018-07-04 10:03 | Progress Note ---
Assessment and Plan 1. Acute kidney injury: Multifactorial LASHAE in the setting of volume depletion, sepsis and +/-Vancomycin. Likely ATN. Continue IV fluids. Monitor renal function. Patient was started on hemodialysis on 06/30/2018 due to persistent LASHAE and associated metabolic acidosis and encephalopathy. Last dialyzed 3 days ago. Renal prognosis is guarded. Avoid nephrotoxic agents. Meds dosage based on GFR. 2. FEN: Volume depletion, continue IV fluids. Anion gap metabolic acidosis, likely secondary to LASHAE. Continue IV bicarbonate drip. Hypernatremia, improved. Hypokalemia, replete K. 3. Sepsis. 4. Multiple decubitus ulcers. 5. Polymyoclonus: Resolved. 6. Myasthenia gravis. 7. Paraplegia. 8. Anemia: Likely multifactorial. Subjective Date of service: 07/04/18 Interval history: Patient was seen and examined at the bedside. Objective - Vital Signs Vital signs: Vital Signs - 12hr 07/04/18 07/04/18 07/04/18 00:12 04:00 04:47 Temperature 96.7 F L Pulse Rate 51 L 54 L 50 L Respiratory 17 17 Rate Blood Pressure 118/89 122/72 O2 Sat by Pulse 99 100 Oximetry 07/04/18 07/04/18 07/04/18 04:49 08:44 08:46 Temperature 96.7 F L 97.3 F L Pulse Rate 48 L Respiratory 20 Rate Blood Pressure 100/61 O2 Sat by Pulse 100 Oximetry - General Appearance General appearance: well-developed, appears stated age, other (not in distress, emaciated) EENT: ATNC, PERRL, mucous membranes dry Neck: supple Respiratory: Present: Clear to Ascultation Cardiology: regular, S1S2, no murmurs Gastrointestinal: normoactive bowel sounds, other (suprapubic catheter) Integumentary: decubiti (both heel) Neurologic: confused, disoriented, other (answers few questions, paraplegia) Musculoskeletal: other (no edema, right groin hemodialysis catheter) - Lab 07/04/18 05:36 07/04/18 05:36 Most recent lab results Calcium 7.5 mg/dL (8.4-10.2) L 07/04/18 05:36 Phosphorus 3.90 mg/dL (2.5-4.5) D 07/03/18 06:25 Magnesium 1.70 mg/dL (1.7-2.3) 07/04/18 05:36 Urine Creatinine 32.9 mg/dL (0.1-20.0) H 06/29/18 16:05 Urine Sodium 99 mmol/L 06/29/18 16:05 Medications & Allergies - Medications Allergies/Adverse Reactions: Allergies codeine Allergy (Verified 06/28/18 17:04) Unknown Home Medications: Home Medications Medication Instructions Recorded Confirmed Last Taken Type Unobtainable 06/28/18 06/28/18 Unknown History Active Medications: Generic Name Dose Route Start Last Admin Trade Name Freq PRN Reason Stop Dose Admin Lipase/Protease/Amylase 1 each 07/02/18 16:07 Pancreaze 10,500 Unit FEEDTUBE PRN PRN For Clogged Feeding Tube Dextrose 50 ml 07/01/18 18:46 07/02/18 06:38 D50w (25gm) Syringe IV 50 ml PRN PRN Administration Hypoglycemia Heparin Sodium (Porcine) 5,000 unit 06/29/18 10:00 07/03/18 23:04 Heparin SUB-Q 5,000 unit Q12HR BEL Administration Sodium Bicarbonate 75 meq/ 1,075 mls @ 125 mls/hr 06/28/18 22:00 07/03/18 01:18 Sterile Water IV 125 mls/hr DIRECT BEL Administration Sodium Chloride 100 mls @ 999 mls/hr 07/01/18 08:08 Nacl 0.9% IV ADRY PRN Hypotension Levetiracetam 750 mg/ Dextrose 107.5 mls @ 400 mls/hr 07/01/18 11:30 07/03/18 23:20 IV 400 mls/hr Q12HR BEL Administration Lorazepam 1 mg 07/01/18 12:25 Ativan IV Q4H PRN seizures, jerky movements Ondansetron HCl 4 mg 06/29/18 00:02 Zofran IV Q8H PRN Nausea And Vomiting Potassium Chloride 20 meq 07/03/18 12:00 07/03/18 11:51 K-Dur PO 20 meq QDAY BEL Administration Simple Syrup 15 ml 07/02/18 16:07 Simple Syrup FEEDTUBE PRN PRN Hypoglycemia Simple Syrup 30 ml 07/02/18 16:07 Simple Syrup FEEDTUBE PRN PRN Hypoglycemia Sodium Bicarbonate 325 mg 07/02/18 16:07 Sodium Bicarbonate FEEDTUBE PRN PRN For Clogged Feeding Tube
--- NOTE | 2018-07-04 10:22 | Progress Note ---
Assessment and Plan Cultures: 06/28/2018 blood cultures: no growth 06/28/18 : Urine: Canidida Albicans A/P: 67-year-old male with paraplegia, myasthenia gravis, diabetes mellitus type 2 recently had a prolonged hospitalization when he was admitted to [facility] on 05/14/2018 and was found to have MRSA bacteremia, loculated intramuscular abscess in the gluteal muscles, left hip septic arthritis with trochanteric osteomyelitis, multiple decubitus ulcers including a stage IV sacral decubitus ulcer. He had an I&D of his right hip on 06/01/2018. Probable course was also complicated by VRE UTI in the setting of a suprapubic catheter for which he received antibiotics that ended on 05/24/2018. He was eventually discharged from the hospital on IV Zosyn and vancomycin for a total duration of 6 weeks with the planned end date of 06/29/2018 through a PICC line (ID physician was Dr. Us). Patient was discharged to [facility], now admitted here with: 1) SIRS versus sepsis, leukocytosis trending down: Could be reactive from the acute renal failure. C. difficile negative. No evidence of pneumonia. He has a chronic indwelling suprapubic catheter. All cultures unrevealing thus far. 2) Diarrhea: improving. C. difficile negative, off PO vancomycin. 3) Acute renal failure: Likely combination of supratherapeutic vancomycin related toxicity, Zosyn-Vancomycin combination and perhaps some volume loss from diarrhea. Nephrology following. Renal ultrasound negative for any obstructive uropathy. Now on HD. 4) Recent MRSA bacteremia with gluteal abscess, left hip osteomyelitis status post debridement and multiple decubitus ulcers: He was on IV Zosyn and vancomycin for the last 6 weeks with a planned end date of 06/29/2018 which is today. His wounds appear to be healthy with good granulation tissue and no evidence of superinfection at this time. Would not recommend continuing antibiotics. Per outside records, echocardiogram was negative for endocarditis, source was thought to be the left hip and decubiti. 5) Multiple decubitus ulcers: Continue wound care. 6) Question of VRE UTI: Patient with indwelling suprapubic catheter. UA shows pyuria. Urine culture growing Migdalia albicans. No treatment needed. 7) Acute encephalopathy: seems to be at baseline. Recs: - continue off abx - continue wound care [facility] M: [id number] O:[phone] Subjective Date of service: 07/04/18 Interval history: Patient seen and examined. Sitting up in bed, Awake, alert, no acute distress observed. No family at bedside Objective - Constitutional Vitals: Vital Signs Temp Pulse Resp BP Pulse Ox 97.3 F L 48 L 20 100/61 100 07/04/18 08:46 07/04/18 08:44 07/04/18 08:44 07/04/18 08:44 07/04/18 08:44 Temperature -Last 24 Hours Temperature 97.3 F Temperature 96.7 F Temperature 96.7 F Temperature 96.7 F - Labs CBC & Chem 7: 07/04/18 05:36 07/04/18 05:36 Labs: Abnormal lab results 07/03/18 07/03/18 07/04/18 Range/Units 09:51 22:53 05:36 WBC 15.6 H (4.5-11.0) K/mm3 RBC 2.51 L (3.65-5.03) M/mm3 Hgb 7.6 L (11.8-15.2) gm/dl Hct 21.0 L (35.5-45.6) % MCHC 36 H (32-34) % RDW 20.8 H (13.2-15.2) % Seg Neuts % (Manual) 91.0 H (40.0-70.0) % Lymphocytes % (Manual) 5.0 L (13.4-35.0) % Nucleated RBC % 1.0 H (0.0-0.9) % Seg Neutrophils # Man 14.2 H (1.8-7.7) K/mm3 Lymphocytes # (Manual) 0.8 L (1.2-5.4) K/mm3 Eosinophils # (Manual) 0.6 H (0.0-0.4) K/mm3 Potassium 2.7 L* 3.2 L (3.6-5.0) mmol/L Carbon Dioxide (22-30) mmol/L BUN (9-20) mg/dL Creatinine (0.8-1.5) mg/dL Calcium (8.4-10.2) mg/dL 07/04/18 Range/Units 05:36 WBC (4.5-11.0) K/mm3 RBC (3.65-5.03) M/mm3 Hgb (11.8-15.2) gm/dl Hct (35.5-45.6) % MCHC (32-34) % RDW (13.2-15.2) % Seg Neuts % (Manual) (40.0-70.0) % Lymphocytes % (Manual) (13.4-35.0) % Nucleated RBC % (0.0-0.9) % Seg Neutrophils # Man (1.8-7.7) K/mm3 Lymphocytes # (Manual) (1.2-5.4) K/mm3 Eosinophils # (Manual) (0.0-0.4) K/mm3 Potassium 3.5 L (3.6-5.0) mmol/L Carbon Dioxide 21 L (22-30) mmol/L BUN 21 H (9-20) mg/dL Creatinine 4.9 H (0.8-1.5) mg/dL Calcium 7.5 L (8.4-10.2) mg/dL
--- NOTE | 2018-07-04 11:28 | Progress Note ---
Assessment and Plan Assessment and plan: SIRS Sepsis ruled out. Antibiotic stopped ID Physician following History of MRSA infection Osteomyelitis left hip Completed treatment Jerky movement both upper exttremities, but awake,answering questions, on 07/01, now resolved Got CT head, EEG, consulted Neuro started Keppra, Ativan prn Poor appetite, was not eating,.lethargic Ordered Dobhoff tube, and to start tube feeding, however he started eating orally again - so now on pureed diet sacral decub ulcer UTI LASHAE due to ATN, improving Nephrology following,. Hemodialysis started metabolic acidosis. Cont bicarb drip Toxic metabolic encephalopathy Hypokalemia. Replace and recheck hypernatremia Malnutrition. Dietitian consulted Full code status History Interval history: Patient sent in for altered mental status On 07/01 had jerky movements both upper ext but was awake, now resolved More awake today, eating No fever Hospitalist Physical - Physical exam Narrative exam: GEN: Not in acute distress, lying in bed,malnourished HEENT: Normocephalic, atraumatic, Neck: supple, No JVD Lungs: Clear to auscultation bilaterally, no wheeze Heart:S1 and S2 regular, no murmurs, rubs or gallop, Abd:soft, non tender, non distended, normal bowel sounds Ext: bilateral lower ext ulcers, no clubbing or cyanosis Neuro: Awake,alert, mild confused. Oriented to person, time, not to place. no jerky movements currently sacrum:sacral ulcer - Constitutional Vitals: Temp Pulse Resp BP Pulse Ox 97.3 F L 48 L 20 100/61 100 07/04/18 08:46 07/04/18 08:44 07/04/18 08:44 07/04/18 08:44 07/04/18 08:44 Results - Labs CBC & Chem 7: 07/04/18 05:36 07/05/18 05:39 Labs: Laboratory Last Values WBC 15.6 K/mm3 (4.5-11.0) H 07/04/18 05:36 RBC 2.51 M/mm3 (3.65-5.03) L 07/04/18 05:36 Hgb 7.6 gm/dl (11.8-15.2) L 07/04/18 05:36 Hct 21.0 % (35.5-45.6) L 07/04/18 05:36 MCV 84 fl (84-94) 07/04/18 05:36 MCH 31 pg (28-32) 07/04/18 05:36 MCHC 36 % (32-34) H 07/04/18 05:36 RDW 20.8 % (13.2-15.2) H 07/04/18 05:36 Plt Count 149 K/mm3 (140-440) 07/04/18 05:36 Add Manual Diff Complete 07/04/18 05:36 Total Counted 100 07/04/18 05:36 Seg Neuts % (Manual) 91.0 % (40.0-70.0) H 07/04/18 05:36 Band Neutrophils % 0 % 07/04/18 05:36 Lymphocytes % (Manual) 5.0 % (13.4-35.0) L 07/04/18 05:36 Reactive Lymphs % (Man) 0 % 07/04/18 05:36 Monocytes % (Manual) 0 % (0.0-7.3) 07/04/18 05:36 Eosinophils % (Manual) 4.0 % (0.0-4.3) 07/04/18 05:36 Basophils % (Manual) 0 % (0.0-1.8) 07/04/18 05:36 Metamyelocytes % 0 % 07/04/18 05:36 Myelocytes % 0 % 07/04/18 05:36 Promyelocytes % 0 % 07/04/18 05:36 Blast Cells % 0 % 07/04/18 05:36 Nucleated RBC % 1.0 % (0.0-0.9) H 07/04/18 05:36 Seg Neutrophils # Man 14.2 K/mm3 (1.8-7.7) H 07/04/18 05:36 Band Neutrophils # 0.0 K/mm3 07/04/18 05:36 Lymphocytes # (Manual) 0.8 K/mm3 (1.2-5.4) L 07/04/18 05:36 Abs React Lymphs (Man) 0.0 K/mm3 07/04/18 05:36 Monocytes # (Manual) 0.0 K/mm3 (0.0-0.8) 07/04/18 05:36 Eosinophils # (Manual) 0.6 K/mm3 (0.0-0.4) H 07/04/18 05:36 Basophils # (Manual) 0.0 K/mm3 (0.0-0.1) 07/04/18 05:36 Metamyelocytes # 0.0 K/mm3 07/04/18 05:36 Myelocytes # 0.0 K/mm3 07/04/18 05:36 Promyelocytes # 0.0 K/mm3 07/04/18 05:36 Blast Cells # 0.0 K/mm3 07/04/18 05:36 WBC Morphology Not Reportable 07/04/18 05:36 Hypersegmented Neuts Not Reportable 07/04/18 05:36 Hyposegmented Neuts Not Reportable 07/04/18 05:36 Hypogranular Neuts Not Reportable 07/04/18 05:36 Smudge Cells Not Reportable 07/04/18 05:36 Toxic Granulation Not Reportable 07/04/18 05:36 Toxic Vacuolation Not Reportable 07/04/18 05:36 Dohle Bodies Not Reportable 07/04/18 05:36 Pelger-Huet Anomaly Not Reportable 07/04/18 05:36 Gina Rods Not Reportable 07/04/18 05:36 Platelet Estimate Consistent w auto 07/04/18 05:36 Clumped Platelets Not Reportable 07/04/18 05:36 Plt Clumps, EDTA Not Reportable 07/04/18 05:36 Large Platelets Not Reportable 07/04/18 05:36 Giant Platelets Not Reportable 07/04/18 05:36 Platelet Satelliting Not Reportable 07/04/18 05:36 Plt Morphology Comment Not Reportable 07/04/18 05:36 RBC Morphology Not Reportable 07/04/18 05:36 Dimorphic RBCs Not Reportable 07/04/18 05:36 Polychromasia Not Reportable 07/04/18 05:36 Hypochromasia Not Reportable 07/04/18 05:36 Poikilocytosis 1+ 07/04/18 05:36 Anisocytosis 1+ 07/04/18 05:36 Microcytosis Not Reportable 07/04/18 05:36 Macrocytosis Not Reportable 07/04/18 05:36 Spherocytes Not Reportable 07/04/18 05:36 Pappenheimer Bodies Not Reportable 07/04/18 05:36 Sickle Cells Not Reportable 07/04/18 05:36 Target Cells 1+ 07/04/18 05:36 Tear Drop Cells Not Reportable 07/04/18 05:36 Ovalocytes Few 07/04/18 05:36 Helmet Cells Not Reportable 07/04/18 05:36 Lange-Kincaid Bodies Not Reportable 07/04/18 05:36 Joaquin Rings Not Reportable 07/04/18 05:36 Nolan Cells Not Reportable 07/04/18 05:36 Bite Cells Not Reportable 07/04/18 05:36 Crenated Cell Not Reportable 07/04/18 05:36 Elliptocytes Not Reportable 07/04/18 05:36 Acanthocytes (Spur) Not Reportable 07/04/18 05:36 Rouleaux Not Reportable 07/04/18 05:36 Hemoglobin C Crystals Not Reportable 07/04/18 05:36 Schistocytes Not Reportable 07/04/18 05:36 Malaria parasites Not Reportable 07/04/18 05:36 Nahum Bodies Not Reportable 07/04/18 05:36 Hem Pathologist Commnt No 07/04/18 05:36 Sodium 140 mmol/L (137-145) 07/04/18 05:36 Potassium 3.5 mmol/L (3.6-5.0) L 07/04/18 05:36 Chloride 101.9 mmol/L (98-107) 07/04/18 05:36 Carbon Dioxide 21 mmol/L (22-30) L 07/04/18 05:36 Anion Gap 21 mmol/L 07/04/18 05:36 BUN 21 mg/dL (9-20) H 07/04/18 05:36 Creatinine 4.9 mg/dL (0.8-1.5) H 07/04/18 05:36 Estimated GFR 14 ml/min 07/04/18 05:36 BUN/Creatinine Ratio 4 % 07/04/18 05:36 Glucose 91 mg/dL (75-100) 07/04/18 05:36 POC Glucose 83 (70-105) 07/02/18 12:30 Lactic Acid 1.80 mmol/L (0.7-2.0) 07/01/18 06:34 Calcium 7.5 mg/dL (8.4-10.2) L 07/04/18 05:36 Phosphorus 3.90 mg/dL (2.5-4.5) D 07/03/18 06:25 Magnesium 1.70 mg/dL (1.7-2.3) 07/04/18 05:36 Total Bilirubin 0.40 mg/dL (0.1-1.2) 07/03/18 09:51 AST 34 units/L (5-40) 07/03/18 09:51 ALT 9 units/L (7-56) 07/03/18 09:51 Alkaline Phosphatase 375 units/L (35-129) H 07/03/18 09:51 Total Creatine Kinase 47 units/L (55-170) L 06/29/18 05:39 Total Protein 5.1 g/dL (6.3-8.2) L 07/03/18 09:51 Albumin 1.9 g/dL (3.9-5) L 07/03/18 09:51 Albumin/Globulin Ratio 0.6 % 07/03/18 09:51 TSH 0.937 mlU/mL (0.270-4.200) 06/29/18 00:45 Urine Color Yellow (Yellow) 06/29/18 16:05 Urine Turbidity Turbid (Clear) 06/29/18 16:05 Urine pH 5.0 (5.0-7.0) 06/29/18 16:05 Ur Specific Eva 1.009 (1.003-1.030) 06/29/18 16:05 Urine Protein 100 mg/dl mg/dL (Negative) 06/29/18 16:05 Urine Glucose (UA) Neg mg/dL (Negative) 06/29/18 16:05 Urine Ketones Neg mg/dL (Negative) 06/29/18 16:05 Urine Blood Mod (Negative) 06/29/18 16:05 Urine Nitrite Neg (Negative) 06/29/18 16:05 Urine Bilirubin Neg (Negative) 06/29/18 16:05 Urine Urobilinogen < 2.0 mg/dL (<2.0) 06/29/18 16:05 Ur Leukocyte Esterase Lg (Negative) 06/29/18 16:05 Urine WBC (Auto) > 182.0 /HPF (0.0-6.0) H 06/29/18 16:05 Urine RBC (Auto) 88.0 /HPF (0.0-6.0) 06/29/18 16:05 U Epithel Cells (Auto) 10.0 /HPF (0-13.0) 06/29/18 16:05 Urine Bacteria (Auto) 4+ /HPF (Negative) 06/29/18 16:05 Urine WBC Clumps 3+ /HPF 06/29/18 16:05 Ur Transition Epith Cell 1 /HPF 06/29/18 16:05 Urine Mucus Few /HPF 06/29/18 16:05 Urine Yeast (Budding) 3+ /HPF 06/29/18 16:05 Urine Eosinophils 1.0% (None Seen) 06/29/18 15:55 Urine Creatinine 32.9 mg/dL (0.1-20.0) H 06/29/18 16:05 Urine Sodium 99 mmol/L 06/29/18 16:05 C. difficile Toxin A&B Negative (Negative) 06/29/18 Unknown Hepatitis A IgM Ab Non-reactive (NonReactive) 06/30/18 18:15 Hep Bs Antigen Non-reactive (Negative) 06/30/18 18:15 Hep B Core IgM Ab Non-reactive (NonReactive) 06/30/18 18:15 Hepatitis C Antibody Non-reactive (NonReactive) 06/30/18 18:15 Nutrition/Malnutrition Assess - Dietary Evaluation Nutrition/Malnutrition Findings: Nutrition Notes Start: 06/29/18 10:59 Freq: Status: Active Protocol: Document 07/02/18 15:49 RM (Rec: 07/02/18 16:06 RM [id number]) Nutrition Notes Initial or Follow up Reassessment Current Diagnosis Acute Kidney Injury Hypertension Other Pertinent Diagnosis Encephalopathy,osteomyelitis, MRSA,Multiple PUs,myasthenia gravis,on HD Current Diet Pureed diet Labs/Tests Reviewed Pertinent Medications Reviewed Height 6 ft Weight 56.7 kg [place] Body Weight (kg) 80.90 BMI 16.9 Subjective/Other Information Consulted for TF recommendation. Burn Absent Trauma Absent #1 Nutrition Diagnosis Malnutrition Diagnosis Progress(for reassessment Continues documentation) Is patient on ventilator? No Is Patient Ambulatory and/or Out of Bed No REE-([facility]-confined to bed) 1673.556 Kcal/Kg value to use for calculation 38 Approximate Energy Requirements Using 2155 kcal/Kg Calculation Used for Recommendations Kcal/kg Additional Notes PRO needs: 68-85g (1.2-1.5g/kg ) Fluid needs: 1 mL/kcal Nutrition Intervention Change Diet Order: D/C Nutrition Support: Jevity 1.2 at 70 ml/hr. Water flush of 100 mls q 4 hrs . Kcal 2,016 Protein (gm) 93 Fluid (mL) 1,356 Goal #1 TF tolerance Goal #2 Meet at least 75% of calorie and protein needs via TF Goal #3 Wt mainteance/gain Anticipated Discharge Needs: Unable to be determined at this time Follow-Up By: 07/04/18 Additional Comments Follow for TF tolerance
[2018-07-04] MEDS: K-DUR PO SCH (11:55)
[2018-07-04] MEDS: KEPPRA 750 MG in D5W 100 ML IV SCH (11:55)
[2018-07-04] MEDS: HEPARIN SUB-Q SCH ×2 (11:55→22:21)
[2018-07-04] MEDS ORDERED: NACL 0.9% 500 ML 500 ML IV SCH (12:17)
[2018-07-04] MEDS ORDERED: K-DUR PO ONE (18:00)
[2018-07-04] MEDS: KEPPRA PO SCH (22:20)
[2018-07-05] MEDS ORDERED: APRESOLINE IV PRN (00:09)
[2018-07-05 06:33] LABS: Calcium 7.8 mg/dL (8.4-10.2)
--- NOTE | 2018-07-05 09:23 | Progress Note ---
Assessment and Plan 1. Acute kidney injury: Multifactorial LASHAE in the setting of volume depletion, sepsis and +/-Vancomycin. Likely ATN. Continue IV fluids. Patient was started on hemodialysis on 06/30/2018 due to persistent LASHAE and as sociated metabolic acidosis and encephalopathy. Last dialyzed on 07/01/2018. Renal function continue to decline. Renal prognosis is guarded. Possibly HD tomorrow if the BP and heart rate is better. Avoid nephrotoxic agents. Meds dosage based on GFR. 2. FEN: Volume depletion, continue IV fluids. Anion gap metabolic acidosis, likely secondary to LASHAE. Continue IV bicarbonate drip. Hypernatremia, improved. 3. Sepsis with shock: On pressors. Multiple decubitus ulcers. 4. Bradycardia: Followed by Cards. 5. Polymyoclonus: Resolved. 6. Myasthenia gravis. 7. Paraplegia. 8. Anemia: Likely multifactorial. Subjective Date of service: 07/05/18 Interval history: Patient was seen and examined at the bedside. Patient was transferred to ICU for bradycardia and hypotension. Objective - Vital Signs Vital signs: Vital Signs - 12hr 07/04/18 07/04/18 07/04/18 22:00 23:41 23:49 Temperature 98.1 F Pulse Rate Respiratory 18 18 Rate Blood Pressure 175/104 O2 Sat by Pulse 100 Oximetry 07/05/18 07/05/18 07/05/18 03:40 04:00 08:08 Temperature 98.2 F Pulse Rate 42 L Respiratory 18 Rate Blood Pressure 114/78 O2 Sat by Pulse 97 Oximetry - General Appearance General appearance: well-developed, appears stated age, cachectic, frail, other (not in distress) EENT: ATNC Respiratory: Present: Clear to Ascultation Cardiology: regular, S1S2, no murmurs Gastrointestinal: normoactive bowel sounds, no tenderness, no distended, other (suprapubic catheter noted) Integumentary: ulcer (both heel / feet, sacral area) Neurologic: other (stuporous, non-verbal, not following any command) Musculoskeletal: other (no edema) - Lab 07/04/18 05:36 07/05/18 05:39 Most recent lab results Calcium 7.8 mg/dL (8.4-10.2) L 07/05/18 05:39 Phosphorus 3.90 mg/dL (2.5-4.5) D 07/03/18 06:25 Magnesium 1.70 mg/dL (1.7-2.3) 07/04/18 05:36 Urine Creatinine 32.9 mg/dL (0.1-20.0) H 06/29/18 16:05 Urine Sodium 99 mmol/L 06/29/18 16:05 Medications & Allergies - Medications Allergies/Adverse Reactions: Allergies codeine Allergy (Verified 06/28/18 17:04) Unknown Home Medications: Home Medications Medication Instructions Recorded Confirmed Last Taken Type Adult Aspirin 325 tab PO DAILY 07/05/18 07/05/18 07/01/18 History 325 Bisacodyl [Dulcolax suppos] 10 mg NE PRN 07/05/18 07/05/18 06/09/17 History 1 Fleet Enema 19 gm NE PRN PRN 07/05/18 07/05/18 06/09/17 History Lovenox 40 mg DAILY 07/05/18 07/05/18 06/11/17 History Megace 80 mg PO BID 07/05/18 07/05/18 06/09/18 History Milk of Magnesia 30 ml PO QHS PRN 07/05/18 07/05/18 06/09/18 History Normal Saline Flush 10 ml IV QSHIFT 07/05/18 07/05/18 06/09/18 History Piperacillin Sodium/Tazobactam 4.5 gm IV Q8H 07/05/18 07/05/18 06/11/18 History Potassium Citrate ER 20 meq PO DAILY 07/05/18 07/05/18 06/27/18 History oxyCODONE 5 mg PO Q8H PRN 07/05/18 07/05/18 06/22/18 History Active Medications: Generic Name Dose Route Start Last Admin Trade Name Freq PRN Reason Stop Dose Admin Lipase/Protease/Amylase 1 each 07/02/18 16:07 Pancrenikole Jean 10,500 Unit FEEDTUBE PRN PRN For Clogged Feeding Tube Dextrose 50 ml 07/01/18 18:46 07/02/18 06:38 D50w (25gm) Syringe IV 50 ml PRN PRN Administration Hypoglycemia Heparin Sodium (Porcine) 5,000 unit 06/29/18 10:00 07/04/18 22:21 Heparin SUB-Q 5,000 unit Q12HR BEL Administration Hydralazine HCl 5 mg 07/05/18 00:09 07/05/18 02:04 Apresoline IV 5 mg Q6H PRN Administration Hypertension Sodium Bicarbonate 75 meq/ 1,075 mls @ 125 mls/hr 06/28/18 22:00 07/03/18 01:18 Sterile Water IV 125 mls/hr DIRECT BEL Administration Sodium Chloride 100 mls @ 999 mls/hr 07/01/18 08:08 Nacl 0.9% IV ADRY PRN Hypotension Levetiracetam 750 mg 07/04/18 22:00 07/04/18 22:20 Keppra PO 750 mg BID BEL Administration Lorazepam 1 mg 07/01/18 12:25 Ativan IV Q4H PRN seizures, jerky movements Ondansetron HCl 4 mg 06/29/18 00:02 Zofran IV Q8H PRN Nausea And Vomiting Potassium Chloride 20 meq 07/03/18 12:00 07/04/18 11:55 K-Dur PO 20 meq QDAY BEL Administration Simple Syrup 15 ml 07/02/18 16:07 Simple Syrup FEEDTUBE PRN PRN Hypoglycemia Simple Syrup 30 ml 07/02/18 16:07 Simple Syrup FEEDTUBE PRN PRN Hypoglycemia Sodium Bicarbonate 325 mg 07/02/18 16:07 Sodium Bicarbonate FEEDTUBE PRN PRN For Clogged Feeding Tube
--- NOTE | 2018-07-05 10:27 | Progress Note ---
Assessment and Plan Cultures: 06/28/2018 blood cultures: no growth 06/28/18 : Urine: Canidida Albicans A/P: 67-year-old male with paraplegia, myasthenia gravis, diabetes mellitus type 2 recently had a prolonged hospitalization when he was admitted to [facility] on 05/14/2018 and was found to have MRSA bacteremia, loculated intramuscular abscess in the gluteal muscles, left hip septic arthritis with trochanteric osteomyelitis, multiple decubitus ulcers including a stage IV sacral decubitus ulcer. He had an I&D of his right hip on 06/01/2018. Probable course was also complicated by VRE UTI in the setting of a suprapubic catheter for which he received antibiotics that ended on 05/24/2018. He was eventually discharged from the hospital on IV Zosyn and vancomycin for a total duration of 6 weeks with the planned end date of 06/29/2018 through a PICC line (ID physician was Dr. Us). Patient was discharged to [facility], now admitted here with: 1) SIRS versus sepsis, Could be reactive from the acute renal failure. C. difficile negative. No evidence of pneumonia. He has a chronic indwelling suprapubic catheter. All cultures unrevealing thus far. 2) Diarrhea: resolved.. C. difficile negative, off PO vancomycin. 3) Acute renal failure: Likely combination of supratherapeutic vancomycin related toxicity, Zosyn-Vancomycin combination and perhaps some volume loss from diarrhea. Nephrology following. Renal ultrasound negative for any obstructive uropathy. Now on HD. 4) Recent MRSA bacteremia with gluteal abscess, left hip osteomyelitis status post debridement and multiple decubitus ulcers: He was on IV Zosyn and v ancomycin for the last 6 weeks with a end date of 06/29/2018. His wounds appear to be healthy with good granulation tissue and no evidence of superinfection at this time. Would not recommend continuing antibiotics. Per outside records, echocardiogram was negative for endocarditis, source was thought to be the left hip and decubiti. 5) Multiple decubitus ulcers: Continue wound care. 6) Question of VRE UTI: Patient with indwelling suprapubic catheter. UA shows pyuria. Urine culture growing Migdalia albicans. No treatment needed. 7) Acute encephalopathy: worsening 8) Acute hypoxemic respiratory failure. increased WOB on exam. Transferred to CCU for closer monitoring. Pulmonary following 9) Profound bradycardia. At bedside, HR 50, transferred to CCU for closer monitoring. Cardiology consulted. Recs: -repeat blood cultures -Start Cefepime 1 gm IV q PM -Start Linezolid 600mg IV every 12 h [facility] [employer] M: [phone] O:[phone] Subjective Date of service: 07/05/18 Interval history: Patient seen and examined. Agitated with increased WOB, 02 @ 6L/NC. Bradycardia, HR 50, Nurse at bedside. Objective - Exam Narrative Exam: Constitutional: Agitated, Acute distress observed. Cachexia Head, Ears, Nose: Normocephalic, atraumatic. External ears, nose normal Eyes: Conjunctivae/corneas clear. No icterus. No ptosis. Neck: Supple, no meningeal signs Oral: no ulcers, no thrush Cardiovascular: bradycardia Respiratory: increased WOB, course rhonchi throughout, GI:exam limited Musculoskeletal: No pedal edema, no cyanosis. Multiple decubiti, sacral ulcer largest with clean pinkish base. Muscle wasting + Skin: No rash or abscess Hem/Lymphatic: No palpable cervical or supraclavicular nodes. No lymphangitis Psych: acute distress, agitated Neurological: acute distress, agitated - Constitutional Vitals: Vital Signs Temp Pulse Resp BP Pulse Ox 98.2 F 42 L 18 114/78 97 07/05/18 03:40 07/05/18 04:00 07/05/18 03:40 07/05/18 03:40 07/05/18 08:08 Temperature -Last 24 Hours Temperature 98.2 F Temperature 98.1 F Temperature 97.8 F Temperature 97.6 F - Labs CBC & Chem 7: 07/04/18 05:36 07/05/18 05:39 Labs: Abnormal lab results 07/05/18 Range/Units 05:39 Carbon Dioxide 19 L (22-30) mmol/L BUN 23 H (9-20) mg/dL Creatinine 5.1 H (0.8-1.5) mg/dL Glucose 126 H (75-100) mg/dL Calcium 7.8 L (8.4-10.2) mg/dL
[2018-07-05] MEDS: K-DUR PO SCH (10:42)
[2018-07-05] MEDS: KEPPRA PO SCH ×2 (10:42→22:15)
[2018-07-05] MEDS: HEPARIN SUB-Q SCH (11:00)
--- NOTE | 2018-07-05 12:29 | Progress Note ---
Assessment and Plan Assessment and plan: Acute hypoxemic respiratory failure. Check ABG and chest x-ray stat. Consider intubation if necessary. Consulted pulmonary. Profound bradycardia. Patient will be transferred to CCU for closer monitoring. Cardiology consulted. Atropine 1 given. I discussed the case with Dr. Mendes at the bedside. Follow-up EKG. Acute renal failure. Nephrology following. Etiology likely combination of supratherapeutic vancomycin-related toxicity and vasomotor from the from dehydration/diarrhea. Hemodialysis initiated. Recent MRSA bacteremia with gluteal abscess. Completed treatment Left hip osteomyelitis. Patient is status post debridement. Multiple decubitus ulcers. Continue. UTI. Patient with indwelling suprapubic catheter. Urine culture growing Migdalia. No treatment per ID Toxic metabolic encephalopathy. The high probability of a clinically significant, sudden or life threatening d eterioration of the [neurological, respiratory and cardiac] system(s) required my full and direct attention, intervention and personal management. The aggregate critical care time was [36] minutes. This time is in addition to time spent performing reported procedures but includes the following: [x] Data Review and interpretation [x] Patient assessment and monitoring of vital signs [x] Documentation [x] Medication orders and management History Interval history: 67-year-old male with paraplegia, myasthenia gravis, diabetes mellitus type 2 r ecently had a prolonged hospitalization when he was admitted to [facility] on 05/14/2018 and was found to have MRSA bacteremia, loculated intramuscular abscess in the gluteal muscles, left hip septic arthritis with trochanteric osteomyelitis, multiple decubitus ulcers including a stage IV sacral decubitus ulcer. He had an I&D of his right hip on 06/01/2018. Probable course was also complicated by VRE UTI in the setting of a suprapubic catheter for which he received antibiotics that ended on 05/24/2018. He was eventually discharged from the hospital on IV Zosyn and vancomycin for a total duration of 6 weeks with the planned end date of 06/29/2018 through a PICC line (ID ph ysician was Dr. Us). Patient was discharged to [facility], now admitted here with sepsis. Patient reportedly with bradycardia this morning. Hospitalist Physical - Constitutional Vitals: Temp Pulse Resp BP Pulse Ox 98.2 F 55 L 20 98/63 87 07/05/18 03:40 07/05/18 11:56 07/05/18 10:00 07/05/18 11:56 07/05/18 11:56 General appearance: Present: no acute distress, cachectic - EENT Eyes: Present: PERRL, EOM intact ENT: hearing intact, clear oral mucosa, dentition normal - Neck Neck: Present: supple, normal ROM - Respiratory Respiratory effort: normal Respiratory: bilateral: CTA - Cardiovascular Rhythm: regular Heart Sounds: Present: S1 & S2. Absent: gallop, rub - Extremities Extremities: no ischemia, No edema, Full ROM - Abdominal General gastrointestinal: soft, non-tender, non-distended, normal bowel sounds - Integumentary Integumentary: Present: clear, warm, dry - Neurologic Neurologic: other (lethargic, encephalopathic) Results - Labs CBC & Chem 7: 07/04/18 05:36 07/05/18 05:39 Labs: Laboratory Last Values WBC 15.6 K/mm3 (4.5-11.0) H 07/04/18 05:36 RBC 2.51 M/mm3 (3.65-5.03) L 07/04/18 05:36 Hgb 7.6 gm/dl (11.8-15.2) L 07/04/18 05:36 Hct 21.0 % (35.5-45.6) L 07/04/18 05:36 MCV 84 fl (84-94) 07/04/18 05:36 MCH 31 pg (28-32) 07/04/18 05:36 MCHC 36 % (32-34) H 07/04/18 05:36 RDW 20.8 % (13.2-15.2) H 07/04/18 05:36 Plt Count 149 K/mm3 (140-440) 07/04/18 05:36 Add Manual Diff Complete 07/04/18 05:36 Total Counted 100 07/04/18 05:36 Seg Neuts % (Manual) 91.0 % (40.0-70.0) H 07/04/18 05:36 Band Neutrophils % 0 % 07/04/18 05:36 Lymphocytes % (Manual) 5.0 % (13.4-35.0) L 07/04/18 05:36 Reactive Lymphs % (Man) 0 % 07/04/18 05:36 Monocytes % (Manual) 0 % (0.0-7.3) 07/04/18 05:36 Eosinophils % (Manual) 4.0 % (0.0-4.3) 07/04/18 05:36 Basophils % (Manual) 0 % (0.0-1.8) 07/04/18 05:36 Metamyelocytes % 0 % 07/04/18 05:36 Myelocytes % 0 % 07/04/18 05:36 Promyelocytes % 0 % 07/04/18 05:36 Blast Cells % 0 % 07/04/18 05:36 Nucleated RBC % 1.0 % (0.0-0.9) H 07/04/18 05:36 Seg Neutrophils # Man 14.2 K/mm3 (1.8-7.7) H 07/04/18 05:36 Band Neutrophils # 0.0 K/mm3 07/04/18 05:36 Lymphocytes # (Manual) 0.8 K/mm3 (1.2-5.4) L 07/04/18 05:36 Abs React Lymphs (Man) 0.0 K/mm3 07/04/18 05:36 Monocytes # (Manual) 0.0 K/mm3 (0.0-0.8) 07/04/18 05:36 Eosinophils # (Manual) 0.6 K/mm3 (0.0-0.4) H 07/04/18 05:36 Basophils # (Manual) 0.0 K/mm3 (0.0-0.1) 07/04/18 05:36 Metamyelocytes # 0.0 K/mm3 07/04/18 05:36 Myelocytes # 0.0 K/mm3 07/04/18 05:36 Promyelocytes # 0.0 K/mm3 07/04/18 05:36 Blast Cells # 0.0 K/mm3 07/04/18 05:36 WBC Morphology Not Reportable 07/04/18 05:36 Hypersegmented Neuts Not Reportable 07/04/18 05:36 Hyposegmented Neuts Not Reportable 07/04/18 05:36 Hypogranular Neuts Not Reportable 07/04/18 05:36 Smudge Cells Not Reportable 07/04/18 05:36 Toxic Granulation Not Reportable 07/04/18 05:36 Toxic Vacuolation Not Reportable 07/04/18 05:36 Dohle Bodies Not Reportable 07/04/18 05:36 Pelger-Huet Anomaly Not Reportable 07/04/18 05:36 Gina Rods Not Reportable 07/04/18 05:36 Platelet Estimate Consistent w auto 07/04/18 05:36 Clumped Platelets Not Reportable 07/04/18 05:36 Plt Clumps, EDTA Not Reportable 07/04/18 05:36 Large Platelets Not Reportable 07/04/18 05:36 Giant Platelets Not Reportable 07/04/18 05:36 Platelet Satelliting Not Reportable 07/04/18 05:36 Plt Morphology Comment Not Reportable 07/04/18 05:36 RBC Morphology Not Reportable 07/04/18 05:36 Dimorphic RBCs Not Reportable 07/04/18 05:36 Polychromasia Not Reportable 07/04/18 05:36 Hypochromasia Not Reportable 07/04/18 05:36 Poikilocytosis 1+ 07/04/18 05:36 Anisocytosis 1+ 07/04/18 05:36 Microcytosis Not Reportable 07/04/18 05:36 Macrocytosis Not Reportable 07/04/18 05:36 Spherocytes Not Reportable 07/04/18 05:36 Pappenheimer Bodies Not Reportable 07/04/18 05:36 Sickle Cells Not Reportable 07/04/18 05:36 Target Cells 1+ 07/04/18 05:36 Tear Drop Cells Not Reportable 07/04/18 05:36 Ovalocytes Few 07/04/18 05:36 Helmet Cells Not Reportable 07/04/18 05:36 [place] Bodies Not Reportable 07/04/18 05:36 [place] Rings Not Reportable 07/04/18 05:36 Nolan Cells Not Reportable 07/04/18 05:36 Bite Cells Not Reportable 07/04/18 05:36 Crenated Cell Not Reportable 07/04/18 05:36 Elliptocytes Not Reportable 07/04/18 05:36 Acanthocytes (Spur) Not Reportable 07/04/18 05:36 Rouleaux Not Reportable 07/04/18 05:36 Hemoglobin C Crystals Not Reportable 07/04/18 05:36 Schistocytes Not Reportable 07/04/18 05:36 Malaria parasites Not Reportable 07/04/18 05:36 N[place]um Bodies Not Reportable 07/04/18 05:36 Hem Pathologist Commnt No 07/04/18 05:36 Sodium 144 mmol/L (137-145) 07/05/18 05:39 Potassium 3.8 mmol/L (3.6-5.0) 07/05/18 05:39 Chloride 106.7 mmol/L (98-107) 07/05/18 05:39 Carbon Dioxide 19 mmol/L (22-30) L 07/05/18 05:39 Anion Gap 22 mmol/L 07/05/18 05:39 BUN 23 mg/dL (9-20) H 07/05/18 05:39 Creatinine 5.1 mg/dL (0.8-1.5) H 07/05/18 05:39 Estimated GFR 14 ml/min 07/05/18 05:39 BUN/Creatinine Ratio 5 % 07/05/18 05:39 Glucose 126 mg/dL (75-100) H 07/05/18 05:39 POC Glucose 83 (70-105) 07/02/18 12:30 Lactic Acid 1.80 mmol/L (0.7-2.0) 07/01/18 06:34 Calcium 7.8 mg/dL (8.4-10.2) L 07/05/18 05:39 Phosphorus 3.90 mg/dL (2.5-4.5) D 07/03/18 06:25 Magnesium 1.70 mg/dL (1.7-2.3) 07/04/18 05:36 Total Bilirubin 0.40 mg/dL (0.1-1.2) 07/03/18 09:51 AST 34 units/L (5-40) 07/03/18 09:51 ALT 9 units/L (7-56) 07/03/18 09:51 Alkaline Phosphatase 375 units/L (35-129) H 07/03/18 09:51 Total Creatine Kinase 47 units/L (55-170) L 06/29/18 05:39 Total Protein 5.1 g/dL (6.3-8.2) L 07/03/18 09:51 Albumin 1.9 g/dL (3.9-5) L 07/03/18 09:51 Albumin/Globulin Ratio 0.6 % 07/03/18 09:51 TSH 0.937 mlU/mL (0.270-4.200) 06/29/18 00:45 Urine Color Yellow (Yellow) 06/29/18 16:05 Urine Turbidity Turbid (Clear) 06/29/18 16:05 Urine pH 5.0 (5.0-7.0) 06/29/18 16:05 Ur Specific [place] 1.009 (1.003-1.030) 06/29/18 16:05 Urine Protein 100 mg/dl mg/dL (Negative) 06/29/18 16:05 Urine Glucose (UA) Neg mg/dL (Negative) 06/29/18 16:05 Urine Ketones Neg mg/dL (Negative) 06/29/18 16:05 Urine Blood Mod (Negative) 06/29/18 16:05 Urine Nitrite Neg (Negative) 06/29/18 16:05 Urine Bilirubin Neg (Negative) 06/29/18 16:05 Urine Urobilinogen < 2.0 mg/dL (<2.0) 06/29/18 16:05 Ur Leukocyte Esterase Lg (Negative) 06/29/18 16:05 Urine WBC (Auto) > 182.0 /HPF (0.0-6.0) H 06/29/18 16:05 Urine RBC (Auto) 88.0 /HPF (0.0-6.0) 06/29/18 16:05 U Epithel Cells (Auto) 10.0 /HPF (0-13.0) 06/29/18 16:05 Urine Bacteria (Auto) 4+ /HPF (Negative) 06/29/18 16:05 Urine WBC Clumps 3+ /HPF 06/29/18 16:05 Ur Transition Epith Cell 1 /HPF 06/29/18 16:05 Urine Mucus Few /HPF 06/29/18 16:05 Urine Yeast (Budding) 3+ /HPF 06/29/18 16:05 Urine Eosinophils 1.0% (None Seen) 06/29/18 15:55 Urine Creatinine 32.9 mg/dL (0.1-20.0) H 06/29/18 16:05 Urine Sodium 99 mmol/L 06/29/18 16:05 C. difficile Toxin A&B Negative (Negative) 06/29/18 Unknown Hepatitis A IgM Ab Non-reactive (NonReactive) 06/30/18 18:15 Hep Bs Antigen Non-reactive (Negative) 06/30/18 18:15 Hep B Core IgM Ab Non-reactive (NonReactive) 06/30/18 18:15 Hepatitis C Antibody Non-reactive (NonReactive) 06/30/18 18:15 Nutrition/Malnutrition Assess - Dietary Evaluation Nutrition/Malnutrition Findings: Nutrition Notes Start: 06/29/18 10:59 Freq: Status: Active Protocol: Document 07/04/18 14:57 EB (Rec: 07/04/18 15:09 EB [id number]) Co-Sign 07/04/18 14:57 RM Nutrition Notes Initial or Follow up Reassessment Current Diagnosis Acute Kidney Injury Hypertension Other Pertinent Diagnosis Encephalopathy,osteomyelitis, MRSA,Multiple PUs,myasthenia gravis,on HD Current Diet Pureed diet Labs/Tests Reviewed Pertinent Medications Reviewed Height 6 ft Weight 60.5 kg [place] Body Weight (kg) 80.90 BMI 18.1 Subjective/Other Information Pt in room resting at time of visit. TF was ordered, but pt began eating pureed food before placement of tube, so TF was not followed through. Per nurse, pt consumes about 25% of pureed diet consistently. Nurse says he would drink an ONS. Percent of energy/protein needs met: 20%/28% Burn Absent Trauma Absent Current % PO Negligible #1 Nutrition Diagnosis Malnutrition Diagnosis Progress(for reassessment Continues documentation) Is patient on ventilator? No Is Patient Ambulatory and/or Out of Bed No REE-([place]-confined to bed) 1719.120 Kcal/Kg value to use for calculation 38 Approximate Energy Requirements Using 2299 kcal/Kg Calculation Used for Recommendations Kcal/kg Additional Notes PRO needs: 68-85g (1.2-1.5g/kg ) Fluid needs: 1 mL/kcal Nutrition Intervention Change Diet Order: Continue pureed diet Add Supplement/Snack (indicate name/kcal Ensure Enlive BID(strawberry /protein ) or vanilla) with rod Provides kCal: 795 Provides Protein (gm) 42 Goal #1 Meet at least 75% raymundo and pro needs via PO and ONS intake Goal #2 Advance diet as tolerated Goal #3 Wt mainteance/gain Anticipated Discharge Needs: Unable to be determined at this time Follow-Up By: 07/06/18 Additional Comments F/u: PO and ONS intake
[2018-07-05] MEDS ORDERED: NACL 0.9% 1000 ML 1,000 ML ONE (12:48)
[2018-07-05] MEDS ORDERED: ATROPINE 0.1% (CARDIAC) IV ONE (13:00)
[2018-07-05] MEDS: LEVOPHED DRIP 4 MG/NS 250 ML 4 MG/250 ML BAG IV SCH ×3 (13:00→22:38)
[2018-07-05] MEDS ORDERED: LEVOPHED DRIP 4 MG/NS 250 ML 4 MG/250 ML BAG IV ONE (13:08)
[2018-07-05] MEDS ORDERED: NACL 0.9% 1000 ML 1,000 ML IV ONE ×3 (13:57→20:46)
[2018-07-05 14:55] LABS: Chol/HDL Ratio 7.15 %
[2018-07-05] MEDS ORDERED: Vasostrict 20 UNIT in NACL 0.9% 100 ML IV SCH (15:00)
[2018-07-05] MEDS: ZYVOX 600MG/300ML 600 MG/300 ML BAG IV SCH (17:11)
--- NOTE | 2018-07-05 17:19 | Consultation ---
History of Present Illness Consult date: 07/05/18 Consult reason: bradycardia History of present illness: 67y M admitted 5 days ago for further management of osteomyelitis and persistent antibiotic resistant bacteremia. Today, while ontelemetry floor, he was noted with marked bradycardia. Rhythm on telemonitor appeared to suggest AV dissociation with a junctional escape. He was given IV atropine and transfered to CCU for further monitoring. TSH was normal 0.9 during this admission. Co-morbidities: ESRF, diabetes, severe anemia, Hct 20. On exam he appears frail, cachectic, chronically ill, noncommunicative. Past History Past Medical History: diabetes, renal failure Past Surgical History: Other (sacral wound debridement, drainage of left hip abscess, suprapubic catheter) Social history: other (currently at [facility]) Family history: no significant family history Medications and Allergies Allergies Allergy/AdvReac Type Severity Reaction Status Date / Time codeine Allergy Unknown Verified 06/28/18 17:04 Home Medications Medication Instructions Recorded Confirmed Last Taken Type Adult Aspirin 325 tab PO DAILY 07/05/18 07/05/18 07/01/18 History 325 Bisacodyl [Dulcolax suppos] 10 mg IL PRN 07/05/18 07/05/18 06/09/17 History 1 Fleet Enema 19 gm IL PRN PRN 07/05/18 07/05/18 06/09/17 History Lovenox 40 mg DAILY 07/05/18 07/05/18 06/11/17 History Megace 80 mg PO BID 07/05/18 07/05/18 06/09/18 History Milk of Magnesia 30 ml PO QHS PRN 07/05/18 07/05/18 06/09/18 History Normal Saline Flush 10 ml IV QSHIFT 07/05/18 07/05/18 06/09/18 History Piperacillin Sodium/Tazobactam 4.5 gm IV Q8H 07/05/18 07/05/18 06/11/18 History Potassium Citrate ER 20 meq PO DAILY 07/05/18 07/05/18 06/27/18 History oxyCODONE 5 mg PO Q8H PRN 07/05/18 07/05/18 06/22/18 History Active Meds: Active Medications Lipase/Protease/Amylase (James Jean 10,500 Unit) 1 each FEEDTUBE PRN PRN PRN Reason: For Clogged Feeding Tube Dextrose (D50w (25gm) Syringe) 50 ml IV PRN PRN PRN Reason: Hypoglycemia Last Admin: 07/02/18 06:38 Dose: 50 ml Documented by: Heparin Sodium (Porcine) (Heparin) 5,000 unit SUB-Q Q12HR BEL Last Admin: 07/05/18 11:00 Dose: 5,000 unit Documented by: Hydralazine HCl (Apresoline) 5 mg IV Q6H PRN PRN Reason: Hypertension Last Admin: 07/05/18 02:04 Dose: 5 mg Documented by: Sodium Bicarbonate 75 meq/ (Sterile Water) 1,075 mls @ 125 mls/hr IV DIRECT BEL Last Admin: 07/03/18 01:18 Dose: 125 mls/hr Documented by: Sodium Chloride (Nacl 0.9%) 100 mls @ 999 mls/hr IV ADRY PRN PRN Reason: Hypotension Cefepime HCl (Maxipime/Ns 1 Gm/100 Ml) 1 gm in 100 mls @ 200 mls/hr IV QPM BEL; Protocol Linezolid (Zyvox 600mg/300ml) 600 mg in 300 mls @ 300 mls/hr IV Q12HR BEL; Protocol Last Admin: 07/05/18 17:11 Dose: 300 mls/hr Documented by: Norepinephrine (Levophed Drip 4 Mg/Ns 250 Ml) 4 mg in 250 mls @ 7.5 mls/hr IV TITR BEL; Protocol Vasopressin 20 unit/ Sodium (Chloride) 101 mls @ 9.09 mls/hr IV TITR BEL; Protocol Levetiracetam (Keppra) 750 mg PO BID [facility] Last Admin: 07/05/18 10:42 Dose: Not Given Documented by: Lorazepam (Ativan) 1 mg IV Q4H PRN PRN Reason: seizures, jerky movements Ondansetron HCl (Zofran) 4 mg IV Q8H PRN PRN Reason: Nausea And Vomiting Potassium Chloride (K-Dur) 20 meq PO QDAY [facility] Last Admin: 07/05/18 10:42 Dose: Not Given Documented by: Simple Syrup (Simple Syrup) 15 ml FEEDTUBE PRN PRN PRN Reason: Hypoglycemia Simple Syrup (Simple Syrup) 30 ml FEEDTUBE PRN PRN PRN Reason: Hypoglycemia Sodium Bicarbonate (Sodium Bicarbonate) 325 mg FEEDTUBE PRN PRN PRN Reason: For Clogged Feeding Tube Review of Systems ROS unobtainable: due to mental status Physical Examination Vital Signs Pulse Resp 77 19 06/28/18 16:45 06/28/18 16:45 General appearance: no acute distress, cachectic, other (frail, chronically ill appearing) HEENT: Positive: PERRL Neck: Positive: neck supple Cardiac: Positive: Irregularly Regular Lungs: Positive: Decreased Breath Sounds Neuro: Positive: Grossly Intact Abdomen: Positive: Soft Male genitourinary: Positive: deferred Skin: Positive: Clear Extremities: Absent: edema Results 07/04/18 05:36 07/05/18 05:39 Lipids 07/05/18 Range/Units 13:50 Triglycerides 109 (2-149) mg/dL Cholesterol 186 (50-199) mg/dL HDL Cholesterol 26 L (40-59) mg/dL Cholesterol/HDL Ratio 7.15 % Comprehensive Metabolic Panel 07/05/18 Range/Units 05:39 Sodium 144 (137-145) mmol/L Potassium 3.8 (3.6-5.0) mmol/L Chloride 106.7 (98-107) mmol/L Carbon Dioxide 19 L (22-30) mmol/L BUN 23 H (9-20) mg/dL Creatinine 5.1 H (0.8-1.5) mg/dL Glucose 126 H (75-100) mg/dL Calcium 7.8 L (8.4-10.2) mg/dL EKG interpretations AV and intraventricular conduction: advanced AV block (junctional escape) Assessment and Plan - Patient Problems (1) Bradycardia Current Visit: Yes Status: Acute Plan to address problem: Etiology uncertain, may be enhanced vagal response versus underlying conduction system disease. We will avoid AVN blockers, order echocardiogram. Ultimately poor candidate for PM implant due to persistent bacteremia and sepsis.
[2018-07-05] MEDS ORDERED: MAXIPIME/NS 1 GM/100 ML 1 GM/100 ML BAG IV SCH (18:00)
[2018-07-05] MEDS ORDERED: PROVENTIL IH PRN (18:37)
--- NOTE | 2018-07-05 18:40 | XRay Report ---
FINAL REPORT EXAM: XR CHEST 1V AP HISTORY: et tube placement TECHNIQUE: upright single view chest PRIORS: June 28, 2018 FINDINGS: Cardiac and mediastinal contours are unremarkable. Patchy bilateral pulmonary opacities are present n ew since the prior exam. No pleural fluid collection seen. Pulmonary vasculature is unremarkable. ET tube present tip midway between the thoracic inlet and the eleonora. There is a right-sided PICC line with tip at the SVC. IMPRESSION: ET tube and PICC line in satisfactory position Patchy bilateral pulmonary infiltrates. Nonspecific pattern could reflect pneumonia pneumonitis or ed noah
[2018-07-05] MEDS: DUONEB *Not for PRN Use IH SCH (19:14)
[2018-07-05] MEDS ORDERED: NEO-SYNEPHRINE 100 MG in NACL 0.9% 90 ML IV SCH (20:15)
[2018-07-05] MEDS ORDERED: VANCOMYCIN/NS 1 GM/250 ML 1 GM/250 ML BAG IV ONE (20:45)
[2018-07-05] MEDS ORDERED: SODIUM BICARBONATE IV ONE (21:00)
[2018-07-05] MEDS ORDERED: SODIUM BICARBONATE 150 MEQ in D5W 1,000 ML IV SCH (21:00)
[2018-07-06] MEDS ORDERED: NACL 0.9% 1000 ML 1,000 ML IV ONE (00:15)
[2018-07-06 00:37] LABS: Hemoglobin 6.5 gm/dl (11.8-15.2); Mean Corpuscular HGB Conc 35 % (32-34); Mean Corpuscular Volume 88 fl (84-94); Platelet Count 138 K/mm3 (140-440); Red Blood Count 2.09 M/mm3 (3.65-5.03)
[2018-07-06 00:42] LABS: Red Cell Distribution Width 22.6 % (13.2-15.2)
[2018-07-06 00:43] LABS: Hematocrit 18.3 % (35.5-45.6)
[2018-07-06] MEDS: LEVOPHED DRIP 4 MG/NS 250 ML 4 MG/250 ML BAG IV SCH ×2 (01:02→03:30)
[2018-07-06 02:37] LABS: Band Neutrophils # (Manual) 0.2 K/mm3; Basophils % (Manual) 0 % (0.0-1.8); Total Cells Counted 25
[2018-07-06 02:38] LABS: Anisocytosis 2+; Burr Cells 1+; Hypochromasia 1+; Ovalocytes 1+; Poikilocytosis 2+; Tear Drop Cells Rare
[2018-07-06] MEDS: ZYVOX 600MG/300ML 600 MG/300 ML BAG IV SCH (03:17)
[2018-07-06] MEDS: HEPARIN SUB-Q SCH (03:18)
[2018-07-06 04:24] VITALS: BP 74/44
--- NOTE | 2018-07-06 05:03 | Event Note ---
made the patient a DO NOT RESUSCITATE Patient underlying lifeless, no spontaneous respiration Pupils fixed and dilated, no response to sternal rub No heart beat, no pulses lunchroom monitor shows flat lining to leads Patient pronounced at 0458 I
[2018-07-06] MEDS: DUONEB *Not for PRN Use IH SCH (05:38)
--- NOTE | 2018-07-06 08:38 | XRay Report ---
FINAL REPORT EXAM: XR CHEST 1V AP HISTORY: INTUBATED and on VENT TECHNIQUE: AP portable view(s) of the chest obtained. PRIORS: 07/05/2018 FINDINGS: No mediastinal shift. Cardiac silhouette is not enlarged. Endotracheal tube terminates approximately 7-8 cm from the eleonora. No pneumothorax. Worse consolidative right upper lung airspace disease silhou etting the minor fissure with air bronchograms. Focal airspace disease in the left lower lung and pat jb opacities throughout the remainder of both lungs. Blunting of the left costophrenic angle likely due to effusion right upper extremity PICC is satisfactory. Partially imaged cervical fusion hardware . IMPRESSION: Endotracheal tube terminates approximately 7-8 cm from the eleonora. Consider advancement of 2-3 cm for more optimal positioning. Worsening airspace disease, which is consolidative in the right upper and left lower lungs. No pneumo thorax.
[2018-07-06] MEDS ORDERED: VERSED IV ONE (14:44)
--- NOTE | 2018-07-08 06:38 | Death Summary ---
Summary - Providers Date of service: 07/06/18 Consults: 06/28/18 20:32 Consult to Physician [CONS] Stat Comment: Dr. Guardado spoke with Dr. Trent @ [id number] Consulting Provider: ANNIA TRENT Physician Instructions: Reason For Exam: acute renal failure 06/28/18 20:46 Consult to Physician [CONS] Stat Comment: Dr. Guardado spoke with Dr. Lopez @ 2000 Consulting Provider: VICENTE LOPEZ Physician Instructions: Reason For Exam: left decubitus ulcer 06/29/18 07:13 Consult to Wound/ET Nurse [CONS] Routine Reason For Exam: wound eval 06/29/18 07:15 Consult to Physician [CONS] Routine Comment: Consulting Provider: FLO WILKINSON Physician Instructions: Reason For Exam: UTI, sacral ulcer, leukocytosis,sepsis 06/29/18 12:25 Consult to Dietitian/Nutrition [CONS] Routine Physician Instructions: Reason For Exam: severe malnutrition Reason for Consult: Malnutrition Speech Therapy Evaluation and Treat [CONS] Routine Reason For Exam: trouble swallowing, eating 06/30/18 11:50 Consult to Interventional Radiology [CONS] Routine Consulting Provider: NILS AVENDANO Reason For Exam: Hemodialysis catheter placement. Place consult to:: vascular Notified:: yes 07/01/18 09:50 Consult to Physician [CONS] Routine Comment: Consulting Provider: JOSE A RAYMUNDO Physician Instructions: Reason For Exam: Jerky movements 07/02/18 09:52 Consult to Dietitian/Nutrition [CONS] Routine Physician Instructions: Reason For Exam: Reason for Consult: Write/Manage Tube Feeding 07/04/18 12:27 Consult to Case Management [CONS] Routine Services Needed at Discharge: Third Rail Installer Notified:: esthela Was contact made?: Yes If yes, spoke with:: esthela Time called:: 12:25 07/05/18 05:15 Consult to Wound/ET Nurse [CONS] Urgent Reason For Exam: replacement of wound vacc 07/05/18 11:55 Consult to Physician [CONS] Routine Comment: shannonha aware on floor Consulting Provider: TANA LOPEZ Physician Instructions: Reason For Exam: bradycardia 07/05/18 12:21 Consult to Physician [CONS] Routine Comment: Consulting Provider: LORA BERKOWITZ Physician Instructions: Reason For Exam: resp failure Attending: TREVOR CRUZ - summary Date of admission: 06/28/18 20:41 Date of : 07/06/18 Reason for admission: sepsis Disposition: 67-year-old male with paraplegia, myasthenia gravis, diabetes mellitus type 2 recently had a prolonged hospitalization when he was admitted to [facility] on 05/14/2018 and was found to have MRSA bacteremia, loculated intramuscular abscess in the gluteal muscles, left hip septic arthritis with trochanteric osteomyelitis, multiple decubitus ulcers including a stage IV sacral decubitus ulcer. He had an I&D of his right hip on 06/01/2018. Hospital course was also complicated by VRE UTI in the setting of a suprapubic catheter for which he received antibiotics that ended on 05/24/2018. He was eventually discharged from the hospital on IV Zosyn and vancomycin for a total duration of 6 weeks with the planned end date of 06/29/2018 through a PICC line (ID physician was Dr. Us). Patient was discharged to [facility], now admitted here with sepsis although blood cultures were found to be negative. Patient had acute renal failure that was thought to be likely, patient of supratherapeutic vancomycin-related toxicity and perhaps some volume loss from diarrhea. Nephrology was consulted and renal ultrasound was negative for any obstructive uropathy. Patient required hemodialysis. Antibiotics were later discontinued and no recommendations for restarting antibiotics per infectious disease in consultation. Per outside records, echocardiogram was negative for endocarditis, previous source of infection was thought to be the left hip and decubiti. Additionally, patient had question of VRE UTI with indwelling suprapubic catheter. Urinalysis showed pyuria but urine culture grew Migd[place] which ID chose not to treat as well. Unfortunately, on 07/05/18 patient was noted to have acute hypoxic respiratory failure with profound bradycardia. Cardiology was consulted and patient was given atropine. Rhythm on the groundwater monitoring technician. To suggest AV dissociation with junctional escape. Patient was transferred to the CCU for closer monitoring. TSH was normal at 0.9. Patient continued to deteriorate throughout the hospitalization. Patient with extensive comorbidities of ESRD, diabetes, severe anemia, cachectic/frail and was chronically ill as noted above. Later during hospitalization on the morning of 07/06/18 made the patient a DO NOT RESUSCITATE. Patient was noted to be lifeless with no spontaneous respirations pupils fixed and dilated unresponsive to sternal rub and surveillance monitor showed flat line. Patient pronounced at 0458. - Final diagnosis (1) Acute renal failure Note: Final diagnosis: (2) Bradycardia Note: Final diagnosis: (3) Decubitus ulcer Note: Final diagnosis: (4) Osteomyelitis of left femur Note: Final diagnosis: (5) Sepsis Note: Final diagnosis: (6) Vancomycin resistant Enterococcal septicemia Note: Final diagnosis:
== END 2018-07-06 04:58 | DRG 871 ==
LOC: ED 16:08 → 4A 20:41 → CC1 07-05 12:30
PROVIDERS: ADMIT Internal Medicine; ATTEND Hospitalist
PROC: 5A1D70Z Performance of Urinary Filtration, Intermittent, Less than 6 Hours Per Day (ICD-10-PCS; 2018-06-30)
PROC: 02HV33Z Insertion of Infusion Device into Superior Vena Cava, Percutaneous Approach (ICD-10-PCS; 2018-06-30)
PROC: B548ZZA Ultrasonography of Superior Vena Cava, Guidance (ICD-10-PCS; 2018-06-30)
PROC: 5A1D70Z Performance of Urinary Filtration, Intermittent, Less than 6 Hours Per Day (ICD-10-PCS; 2018-07-01)
PROC: 4A033R1 Measurement of Arterial Saturation, Peripheral, Percutaneous Approach (ICD-10-PCS; principal; 2018-07-05)
PROC: 5A1935Z Respiratory Ventilation, Less than 24 Consecutive Hours (ICD-10-PCS; 2018-07-05)
PROC: 0BH17EZ Insertion of Endotracheal Airway into Trachea, Via Natural or Artificial Opening (ICD-10-PCS; 2018-07-05)
DX: A41.9 Sepsis, unspecified organism (principal); J96.01 Acute respiratory failure with hypoxia; L89.154 Pressure ulcer of sacral region, stage 4; N17.0 Acute kidney failure with tubular necrosis; G92 Toxic encephalopathy; J18.9 Pneumonia, unspecified organism; A86 Unspecified viral encephalitis; N39.0 Urinary tract infection, site not specified; E87.0 Hyperosmolality and hypernatremia; E46 Unspecified protein-calorie malnutrition; G82.20 Paraplegia, unspecified; Z68.1 Body mass index [BMI] 19.9 or less, adult; R57.9 Shock, unspecified; E87.6 Hypokalemia; Z66 Do not resuscitate; G70.00 Myasthenia gravis without (acute) exacerbation; Z88.5 Allergy status to narcotic agent; Z86.14 Personal history of Methicillin resistant Staphylococcus aureus infection; M16.12 Unilateral primary osteoarthritis, left hip; L89.329 Pressure ulcer of left buttock, unspecified stage
CPT/HCPCS: 31500; 36415; 36556; 36600; 70450; 71045; 76770; 80048; 80053; 80061; 80074; 81001; 82140; 82550; 82570; 82803; 82947; 82962; 83735; 84100; 84132; 84300; 84443; 84484; 85007; 85025; 85027; 87040; 87070; 87076; 87086; 87186; 87205; 87324; 89050; 93005; 93010; 94002; 94640; 94760; 96365; 96366; 96367; 99291; G0378; C1752; J0360; J0690; J0692; J1644; J1953; J2020; J2060; J2250; J2370; J2543; J3010; J3370; J3475; J3480; J7030; J7040; J7050; J7070